=== PATIENT | female | born 1975 | race Caucasian/White ===

== ENCOUNTER 2016-12-28 18:41 | Emergency (ER) | payer OTHER ==
[2016-12-28 19:01] VITALS: BP 144/68; PULSE 87; RESP 16; TEMP 98.7
--- NOTE | 2016-12-28 19:52 | ED ---
Skin/Abscess/FB HPI - General Chief complaint: Skin/Abscess/Foreign Body Stated complaint: Boil left breast Time Seen by Provider: 12/28/16 19:08 Source: patient, RN notes reviewed Mode of arrival: ambulatory Limitations: no limitations - History of Present Illness Initial comments: Patient is a 41-year-old female with a chief complaint of abscess, left axilla. Patient reports that she's had this in the same spot before. She reports that got better with Bactrim in the past. Patient reports he took a Bactrim earlier in the week and it subsided. Patient reports that she ran out of old Bactrim and reoccurred. Patient states that she does not want the wound be packed. She denies any fever or chills. She denies any superficial erythema over the area. She states that she's had no known history of MRSA.Patient denies any recent fever, chills, shortness of breath, chest pain, back pain, abdominal pain, nausea vomiting, numbness or tingling, dysuria or hematuria, constipation or diarrhea, headaches or visual changes, or any other current symptoms - Related Data Home Medications Medication Instructions Recorded Confirmed Insulin Glargine [Lantus] 20 unit SQ DAILY 11/04/15 11/04/15 Previous Rx's Medication Instructions Recorded valACYclovir HCL [Valacyclovir] 1,000 mg PO TID #21 tab 11/04/15 Acetaminophen-Codeine 300-30mg 1 tab PO Q4H PRN #12 tablet 12/28/16 [Tylenol #3] Sulfamethox-Tmp 800-160Mg [Bactrim 2 tab PO Q12HR 7 Days 12/28/16 DS 800-160 mg] Allergies Allergy/AdvReac Type Severity Reaction Status Date / Time amoxicillin [Amoxicillin] Allergy Anaphylaxis Verified 12/28/16 19:01 blueberry Allergy Rash/Hives Verified 12/28/16 19:01 atorvastatin calcium AdvReac Unknown Verified 12/28/16 19:01 [From Lipitor] Review of Systems ROS Statement: Those systems with pertinent positive or pertinent negative responses have been documented in the HPI. ROS Other: All systems not noted in ROS Statement are negative. Past Medical History Past Medical History: Diabetes Mellitus, Hyperlipidemia Additional Past Medical History / Comment(s): Recurrent abscesses History of Any Multi-Drug Resistant Organisms: None Reported Past Surgical History: Appendectomy, Section, Cholecystectomy, Uterine Ablation Additional Past Surgical History / Comment(s): Incision and drainage Past Psychological History: No Psychological Hx Reported Smoking Status: Current every day smoker Past Alcohol Use History: None Reported Past Drug Use History: None Reported General Exam Limitations: no limitations General appearance: alert, in no apparent distress Head exam: Present: atraumatic, normocephalic, normal inspection Eye exam: Present: normal appearance, PERRL, EOMI. Absent: scleral icterus, conjunctival injection, periorbital swelling ENT exam: Present: normal exam, mucous membranes moist Neck exam: Present: normal inspection Respiratory exam: Present: normal lung sounds bilaterally. Absent: respiratory distress, wheezes, rales, rhonchi, stridor Cardiovascular Exam: Present: regular rate, normal rhythm, normal heart sounds. Absent: systolic murmur, diastolic murmur, rubs, gallop, clicks GI/Abdominal exam: Present: soft, normal bowel sounds. Absent: distended, tenderness, guarding, rebound, rigid Extremities exam: Present: normal inspection, full ROM, normal capillary refill. Absent: tenderness, pedal edema, joint swelling, calf tenderness Back exam: Present: normal inspection Neurological exam: Present: alert, oriented X3, CN II-XII intact Psychiatric exam: Present: normal affect, normal mood Skin exam: Present: warm, dry, intact, normal color, erythema (Left axilla abscess.). Absent: rash Course Vital Signs 12/28/16 18:59 Temperature 98.7 F Pulse Rate 87 Respiratory 16 Rate Blood Pressure 144/68 O2 Sat by Pulse 99 Oximetry Procedures - Incision & Drainage Consent Obtained: verbal consent Indication: Left breast abscess Site: chest (Left lateral breast) Size (cm): 4 Anesthetic Used: benzocaine 0.25% Amount (mLs): 4 I&D Cleaning Method: Betadine Sterile Field Used?: Yes Scalpel Used: #11 I&D Drainage Obtained: Pus, Blood Culture Obtained?: Yes Patient Tolerated Procedure: well, no complications Medical Decision Making - Medical Decision Making Patient is a 41-year-old female with chief complaint of left breast abscess for approximately one week. She's had abscesses in the past there before. She reports that she was taking old prescription of Bactrim and it was helping. She states she ran out of Bactrim and is coming from her. Patient refuses to have the wound pack. I discussed that this will breathe the vent the wound from closing and reoccurring. Patient again refuses. Patient states abscess was prepped with Betadine incised and drained. A significant of pus came out. A culture was obtained. Patient will be started on Bactrim and advised to follow up with primary care provider. I discussed return parameters. Patient states treatment plan will comply. Disposition Clinical Impression: Left breast abscess Disposition: HOME SELF-CARE Condition: Good Instructions: Abscess (ED), Abscess Incision and Drainage (ED) Additional Instructions: Patient advised to complete her antibiotic prescription. Follow-up with primary care provider in 2-3 days. Return to the emergency department if any alarming signs or symptoms occur including in worsening infection or spreading of the area of redness. Prescriptions: Acetaminophen-Codeine 300-30mg [Tylenol #3] 1 tab PO Q4H PRN #12 tablet PRN Reason: Pain Sulfamethox-Tmp 800-160Mg [Bactrim DS 800-160 mg] 2 tab PO Q12HR 7 Days Referrals: None,Stated [Primary Care Provider] - 1-2 days Virginia Robbins MD [STAFF PHYSICIAN] - 1-2 days Time of Disposition: 19:50
== END 2016-12-28 20:16 | disposition home or self-care (01) ==
LOC: EC 18:41
DX: N61.1 Abscess of the breast and nipple (principal); E11.9 Type 2 diabetes mellitus without complications; F17.200 Nicotine dependence, unspecified, uncomplicated; Z79.4 Long term (current) use of insulin; Z88.0 Allergy status to penicillin; Z88.8 Allergy status to other drugs, medicaments and biological substances; Z91.018 Allergy to other foods
CPT/HCPCS: 10060; 87070; 87205; 99283

== ENCOUNTER 2017-01-30 16:14 | Inpatient (IN) | payer OTHER ==
[2017-01-30] MEDS ORDERED: ACETAMINOPHEN TAB 500 MG TAB PO STA (16:51)
--- NOTE | 2017-01-30 16:59 | ED ---
General Adult HPI - General Source: patient, RN notes reviewed Mode of arrival: ambulatory Limitations: no limitations <Jair Chong - Last Filed: 01/30/17 17:47> - General Source: patient Mode of arrival: ambulatory Limitations: no limitations <Lyle Aleman - Last Filed: 01/30/17 17:52> - General Chief complaint: Skin/Abscess/Foreign Body Stated complaint: Under Arm Abscess Time Seen by Provider: 01/30/17 16:48 - History of Present Illness Initial comments: 41-year-old female presents emergency Department chief complaint of left axilla abscess. Patient states has been present 1 week. Patient states is increased in size very painful. Patient states she's had a fever. She states she generally does not feel well. She's had recurrent abscess in the past though she states that she has no history of MRSA. (Jair Chong) - Related Data Home Medications Medication Instructions Recorded Confirmed Ibuprofen [Motrin] 800 mg PO Q8HR PRN 01/30/17 01/30/17 Insulin Detemir [Levemir] 15 unit SQ W/SUPPER 01/30/17 01/30/17 Sulfamethox-Tmp 800-160Mg [Bactrim 1 tab PO TID 01/30/17 01/30/17 DS 800-160 mg] Allergies Allergy/AdvReac Type Severity Reaction Status Date / Time amoxicillin [Amoxicillin] Allergy Anaphylaxis Verified 01/30/17 16:35 blueberry Allergy Anaphylaxis Verified 01/30/17 16:35 atorvastatin calcium AdvReac Muscle Verified 01/30/17 16:35 [From Lipitor] Cramping Review of Systems ROS Other: All systems not noted in ROS Statement are negative. <Jair Chong - Last Filed: 01/30/17 17:47> ROS Other: All systems not noted in ROS Statement are negative. <Lyle Aleman - Last Filed: 01/30/17 17:52> ROS Statement: Those systems with pertinent positive or pertinent negative responses have been documented in the HPI. Past Medical History Past Medical History: Diabetes Mellitus, Hyperlipidemia Additional Past Medical History / Comment(s): Recurrent abscesses History of Any Multi-Drug Resistant Organisms: None Reported Past Surgical History: Appendectomy, Section, Cholecystectomy, Uterine Ablation Additional Past Surgical History / Comment(s): Incision and drainage Past Psychological History: No Psychological Hx Reported Smoking Status: Current every day smoker Past Alcohol Use History: None Reported Past Drug Use History: None Reported <Lyle Aleman - Last Filed: 01/30/17 17:52> General Exam General appearance: alert, in no apparent distress Respiratory exam: Present: normal lung sounds bilaterally. Absent: respiratory distress, wheezes, rales, rhonchi, stridor Cardiovascular Exam: Present: regular rate, normal rhythm, normal heart sounds. Absent: systolic murmur, diastolic murmur, rubs, gallop, clicks Skin exam: Present: other (Left axilla there are multiple large tender there is a swelling to problem abscesses noted, surrounding erythema and warmth) <Jair Chong - Last Filed: 01/30/17 17:47> Limitations: no limitations <Lyle Aleman - Last Filed: 01/30/17 17:52> Medical Decision Making - Lab Data Result diagrams: 01/30/17 17:00 01/30/17 17:00 <Jair Chong - Last Filed: 01/30/17 17:47> - Lab Data Result diagrams: 01/30/17 17:00 01/30/17 17:00 <Lyle Aleman - Last Filed: 01/30/17 17:52> - Medical Decision Making 41-year-old female presented emergency from for left axilla abscess. Patient be admitted at this time under Dr. Garnett service consult to Dr. Bermudez. Patient has seen Dr. Bermudez in the past. Patient be started on Levaquin and ankle as she meets sepsis criteria. Patient has any affect reaction to amoxicillin and penicillin/cephalsporin medications will be avoided. (Jair Chong) Medical decision making; I examined the patient reviewed her history. She has a large abscess with cellulitis in the left axilla. She's had this on the right side as well. I discussed the case with Dr. Bermudez, her general surgeon who did the I&D on the last abscess in the right axilla, she wants the patient admitted to general medicine for control of medical problems. I discussed the case with Dr. rodríguez, on-call for Dr. michel, he accepts patient. Patient be started on double antibiotics. Dr. Aleman (Lyle Aleman) - Lab Data Lab Results 01/30/17 01/30/17 Range/Units 17:00 17:00 WBC 15.2 H (3.8-10.6) k/uL RBC 4.94 (3.80-5.40) m/uL Hgb 15.3 (11.4-16.0) gm/dL Hct 45.4 (34.0-46.0) % MCV 91.8 (80.0-100.0) fL MCH 30.9 (25.0-35.0) pg MCHC 33.6 (31.0-37.0) g/dL RDW 13.9 (11.5-15.5) % Plt Count 268 (150-450) k/uL Neutrophils % 75 % Lymphocytes % 19 % Monocytes % 3 % Eosinophils % 2 % Basophils % 1 % Neutrophils # 11.3 H (1.3-7.7) k/uL Lymphocytes # 2.9 (1.0-4.8) k/uL Monocytes # 0.4 (0-1.0) k/uL Eosinophils # 0.3 (0-0.7) k/uL Basophils # 0.1 (0-0.2) k/uL Sodium 137 (137-145) mmol/L Potassium 4.2 (3.5-5.1) mmol/L Chloride 102 (98-107) mmol/L Carbon Dioxide 25 (22-30) mmol/L Anion Gap 10 mmol/L BUN 9 (7-17) mg/dL Creatinine 0.54 (0.52-1.04) mg/dL Est GFR (MDRD) Af Amer >60 (>60 ml/min/1.73 sqM) Est GFR (MDRD) Non-Af >60 (>60 ml/min/1.73 sqM) Glucose 250 H (74-99) mg/dL Calcium 9.4 (8.4-10.2) mg/dL Disposition Time of Disposition: 17:50 <Jair Chong - Last Filed: 01/30/17 17:47> <Lyle Aleman - Last Filed: 01/30/17 17:52> Clinical Impression: Abscess of left axilla, Cellulitis Referrals: Eugene Michel MD [REFERRING] - 1-2 days
[2017-01-30] MEDS ORDERED: IV VANCOMYCIN PER PHARMACY 1 EACH MISC MISCELLANE PRN (17:05)
[2017-01-30 17:21] LABS: Basophils # (A) 0.1 k/uL (0-0.2); Basophils % (A) 1 %; CH 31.5; CHCM 34.5; Eosinophils # (A) 0.3 k/uL (0-0.7); Eosinophils % (A) 2 %; HCT 45.4 % (34.0-46.0); HDW 2.63; HGB 15.3 gm/dL (11.4-16.0); Luc # (Auto) 0.14; Luc % (Auto) 1; Lymphocytes # (A) 2.9 k/uL (1.0-4.8); Lymphocytes % (A) 19 %; MCH 30.9 pg (25.0-35.0); MCHC 33.6 g/dL (31.0-37.0); MCV 91.8 fL (80.0-100.0); Mean Platelet Volume 7.5; Monocytes # (A) 0.4 k/uL (0-1.0); Monocytes % (A) 3 %; Neutrophils # (A) 11.3 k/uL (1.3-7.7); Neutrophils % (A) 75 %; RBC 4.94 m/uL (3.80-5.40); RDW 13.9 % (11.5-15.5); WBC 15.2 k/uL (3.8-10.6); WBC (Perox) 15.73
[2017-01-30 17:31] LABS: Anion Gap 10 mmol/L; Blood Urea Nitrogen 9 mg/dL (7-17); Calcium 9.4 mg/dL (8.4-10.2); Carbon Dioxide 25 mmol/L (22-30); Chloride 102 mmol/L (98-107); Glucose 250 mg/dL (74-99); Non-African American GFR(MDRD) >60 (>60 ml/min/1.73 sqM); Potassium 4.2 mmol/L (3.5-5.1); Sodium 137 mmol/L (137-145)
[2017-01-30] MEDS ORDERED: LEVOFLOXACIN 750MG-D5W PMX 750 MG in DEXTROSE/WATER 1 150ML.BAG IVPB STA (17:47)
[2017-01-30] MEDS ORDERED: NALOXONE 0.4 MG/ML 1 ML VIAL IV PRN (17:50)
[2017-01-30] MEDS ORDERED: ACETAMINOPHEN TAB 325 MG TAB PO PRN (17:50)
[2017-01-30] MEDS ORDERED: ONDANSETRON 4 MG/2 ML VIAL IVP PRN (17:50)
[2017-01-30] MEDS ORDERED: VANCOMYCIN 1,500 MG in SODIUM CHLORIDE 0.9% 250 ML IVPB ONE (18:00)
--- NOTE | 2017-01-30 19:40 | P.GSCN ---
History of Present Illness Consult date: 01/30/17 History of present illness: . She has a history of a complicated right axillary abscess approximately 2 years ago. She had a small abscess on her breast which was drained in the emergency department and she was started on Bactrim. It sounds like that improved and when she began developing the pain in the axilla she started her Bactrim again. No fevers or chills. No history of MRSA. Review of Systems All systems: negative Past Medical History Past Medical History: Diabetes Mellitus, Hyperlipidemia Additional Past Medical History / Comment(s): Recurrent abscesses History of Any Multi-Drug Resistant Organisms: None Reported Past Surgical History: Appendectomy, Section, Cholecystectomy, Uterine Ablation Additional Past Surgical History / Comment(s): Incision and drainage Past Psychological History: No Psychological Hx Reported Smoking Status: Current every day smoker Past Alcohol Use History: None Reported Past Drug Use History: None Reported Medications and Allergies Home Medications Medication Instructions Recorded Confirmed Type Ibuprofen [Motrin] 800 mg PO Q8HR PRN 01/30/17 01/30/17 History Insulin Detemir [Levemir] 15 unit SQ W/SUPPER 01/30/17 01/30/17 History Sulfamethox-Tmp 800-160Mg [Bactrim 1 tab PO TID 01/30/17 01/30/17 History DS 800-160 mg] Allergies Allergy/AdvReac Type Severity Reaction Status Date / Time amoxicillin [Amoxicillin] Allergy Anaphylaxis Verified 01/30/17 16:35 blueberry Allergy Anaphylaxis Verified 01/30/17 16:35 atorvastatin calcium AdvReac Muscle Verified 01/30/17 16:35 [From Lipitor] Cramping Surgical - Exam Osteopathic Statement: *. No significant issues noted on an osteopathic structural exam other than those noted in the History and Physical/Consult. Vital Signs Temp Pulse Resp BP Pulse Ox 100.8 F H 105 H 20 163/81 97 01/30/17 16:26 01/30/17 16:26 01/30/17 16:26 01/30/17 16:26 01/30/17 16:26 - General Appears uncomfortable when moving in bed well developed, well nourished - Respiratory normal respiratory effort - Cardiovascular Rhythm: regular - Integumentary Complex abscess in the left axilla with erythema, purulent drainage, multiple areas of swelling. Results - Labs 01/30/17 17:00 04/18/17 17:00 Assessment and Plan (1) Abscess of left axilla Status: Acute (2) Diabetes Status: Acute Plan: This is a fairly complex abscess which will require incision and drainage along with parenteral antibiotics. Procedure risks and complications were discussed and onto this for her today. I'll have one a the other doctors cover her beginning tomorrow as I will be added town.
[2017-01-30 20:08] VITALS: BMI 33.2
[2017-01-30] MEDS ORDERED: fentaNYL (PF) 50 MCG/ML 2 ML AMP ONE (20:16)
[2017-01-30] MEDS ORDERED: PROPOFOL 10 MG/ML 20 ML VIAL IV ONE (20:16)
[2017-01-30] MEDS ORDERED: SUCCINYLCHOLINE CHLORIDE 100 MG/5 ML SYR IV ONE (20:16)
[2017-01-30] MEDS ORDERED: IV FLUID CONTINUATION 1,000 ML IV ONE (20:18)
[2017-01-30 20:27] LABS: Hemoglobin A1C 8.5 % (4.2-6.1)
--- NOTE | 2017-01-30 20:40 | P.OP ---
Date of Procedure: 01/30/17 Preoperative Diagnosis: Abscess left axilla Postoperative Diagnosis: Abscess left axilla Procedure(s) Performed: Incision and drainage abscess left axilla Anesthesia: JOY Surgeon: Cary Bermudez Estimated Blood Loss (ml): 10 Pathology: other (Culture) Condition: stable Disposition: PACU Indications for Procedure: Patient presented with a abscess of left axilla which was not responding to oral Bactrim Operative Findings: Patient's taken the operative suite where she is prepped and draped in the usual sterile manner under general anesthetic. An incision was made about 4 cm long with drainage of purulent, foul smelling fluid. It was cultured. Some loculations were broken up. The wound was irrigated and packed with 1 inch iodoform gauze. The skin incision was 4 cm. An undermined superiorly and inferiorly to that about 4 cm she tolerated the procedure without difficulty was taken recovery room in satisfactory condition. According to or personnel all counts are correct.
[2017-01-30] MEDS ORDERED: HYDROcodone/APAP 5-325MG 1 EACH TAB PO PRN (20:42)
[2017-01-30 21:03] LABS: Glucose,Whole Blood 163 mg/dL (75-99)
[2017-01-30] MEDS: INSULIN DETEMIR 100 UNIT/ML 10 ML VIAL SQ SCH (21:27)
[2017-01-30] MEDS: INSULIN LISPRO (humaLOG) 300 UNIT/3 ML VIAL SQ SCH (21:55)
[2017-01-31] MEDS: SODIUM CHLORIDE 0.9% 1,000 ML IV SCH ×3 (00:10→20:40)
[2017-01-31] MEDS: metroNIDAZOLE-NS PMX 500 MG in SALINE 1 100ML.BAG IVPB SCH ×2 (00:11→08:17)
[2017-01-31] MEDS: MORPHINE SULFATE 4 MG/ML SYRINGE IV PRN ×3 (00:22→16:34)
[2017-01-31] MEDS: VANCOMYCIN 1,250 MG in SODIUM CHLORIDE 0.9% 250 ML IVPB SCH ×3 (01:32→15:52)
--- NOTE | 2017-01-31 07:52 | P.HPIM ---
History of Present Illness H&P Date: 01/30/17 Chief Complaint: Left axilla abscess with large cellulitis with failure to outpatient treatm 41-year-old female overweight [address] 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 Patient apparently has been dealing with abscess of the left axilla for the last 2 weeks was on oral antibiotics Bactrim as an outpatient with failure to treatment. Patient just lost her father recently was dealing with his arrangement could not seek any medical help but her symptoms become much worse over the last 48 hours ended up coming to the emergency department at [facility] found to have large abscess size 107 cm in the left axilla with worsening lymph node enlargement with failure to outpatient treatment with her current condition decided to admit patient to the hospital. I'm patient be seen in general surgery and possible need I@D within the next 24 hours. In the meanwhile patient is on vancomycin IV will continue current treatment for now. Review of Systems Constitutional: Reports fatigue, Reports fever, Reports lethargy, Reports malaise, Reports poor appetite, Reports weakness, Reports weight gain, Denies as per HPI, Denies anorexia, Denies chills, Denies chronic headaches, Denies chronic pain, Denies daytime sleepiness, Denies night sweats, Denies sweats, Denies weight loss Eyes: denies as per HPI Ears: deny: decreased hearing Ears, nose, mouth and throat: Reports ant. neck pain, Reports nasal discharge, Reports sinus pain, Reports sinus pressure, Denies as per HPI, Denies bleeding gums, Denies dental pain, Denies dysphagia, Denies epistaxis, Denies headache, Denies hoarseness, Denies mouth pain, Denies nasal congestion, Denies neck fullness/pressure, Denies neck lump, Denies nose pain, Denies odynophagia, Denies post-nasal drip, Denies swelling in mouth, Denies swelling in throat, Denies sore throat, Denies vertigo, Denies voice changes Cardiovascular: Reports dyspnea on exertion, Reports edema, Reports high blood pressure, Reports leg edema, Denies as per HPI, Denies chest pain, Denies claudication, Denies decreased exercise tolerance, Denies irregular heart beat, Denies lightheadedness, Denies orthopnea, Denies palpitations, Denies paroxysmal nocturnal dyspnea, Denies phlebitis, Denies rapid heart beat, Denies shortness of breath, Denies syncope Respiratory: Reports congestion, Denies as per HPI, Denies cough, Denies cough with sputum, Denies dyspnea, Denies excessive sputum, Denies hemoptysis, Denies home oxygen, Denies pain, Denies pain on inspiration, Denies pleurisy, Denies respiratory infections, Denies sleep apnea, Denies snoring, Denies wheezing Gastrointestinal: Reports bloating, Reports dyspepsia, Reports early satiety, Reports nausea, Denies as per HPI, Denies abdominal pain, Denies belching, Denies BRBPR, Denies change in bowel habits, Denies coffee ground emesis, Denies constipation, Denies diarrhea, Denies excessive gas, Denies heartburn, Denies hematemesis, Denies hematochezia, Denies indigestion, Denies jaundice, Denies lactose intolerance, Denies loss of appetite, Denies melena, Denies vomiting Genitourinary: Reports urinary frequency, Denies as per HPI, Denies abnormal vaginal bleeding, Denies decreased libido, Denies difficulty conceiving, Denies difficulty voiding, Denies dysmenorrhea, Denies dyspareunia, Denies dysuria, Denies flank pain, Denies genital sores, Denies hematuria, Denies hot flashes, Denies incomplete emptying, Denies kidney stones, Denies menorrhagia, Denies mixed incontinence, Denies nocturia, Denies pelvic pain, Denies post void dribbling, Denies , Denies prolapse symptoms, Denies stress incontinence , Denies urge incontinence, Denies urgency, Denies vaginal discharge, Denies vaginal dryness, Denies vaginal itching, Denies vaginal odor Menstruation: Denies as per HPI, Denies amenorrhea, Denies amenorrhea on BC, Denies currently menstrual, Denies cycle < 21 days, Denies cycle > 35 days, Denies cycle variable, Denies menses 1-7 days, Denies menses 8 or > days, Denies menses variable, Denies period heavy, Denies period light, Denies period normal, Denies period spotting, Denies post hysterectomy, Denies postmenopausal , Denies premenarcheal Musculoskeletal: Reports low back pain, Reports myalgias, Reports neck pain, Denies as per HPI, Denies arm numbness/tingling, Denies atrophy, Denies fractures, Denies frequent falls, Denies gait dysfunction, Denies hot joints, Denies leg numbness/tingling, Denies limitation of motion, Denies loss of height , Denies morning stiffness, Denies muscle cramps, Denies muscle weakness, Denies neck stiffness, Denies prior amputations, Denies redness of joints, Denies shooting arm pain, Denies shooting leg pain Integumentary: Reports pruritus, Reports rash, Denies as per HPI, Denies acne, Denies boils, Denies brittle nails, Denies change in hair/nails, Denies color changes, Denies darkening of skin, Denies depigmentation, Denies dryness, Denies foot/leg ulcers, Denies growths, Denies hirsutism, Denies lesions, Denies onychomycosis, Denies sores, Denies striae, Denies unusual bruising, Denies wounds Neurological: Denies as per HPI, Denies aphasia, Denies ataxia, Denies balance difficulties, Denies burning pain, Denies change in mentation, Denies change in smell/taste, Denies change in speech, Denies confusion, Denies convulsions, Denies double vision, Denies gait dysfunction, Denies head injury, Denies headaches, Denies hearing difficulties, Denies lack of coordination, Denies loss of vision, Denies memory loss, Denies migraines, Denies motor disturbance, Denies numbness, Denies paralysis, Denies paresthesias, Denies seizures, Denies sensory deficit, Denies spasticity, Denies syncope, Denies tic, Denies tingling , Denies transient paralysis, Denies tremors, Denies vertigo, Denies weakness, Denies visual changes Psychiatric: Reports anhedonia, Reports depression, Reports mood swings, Denies as per HPI, Denies anxiety, Denies anxiety attacks, Denies change in appetite, Denies change in libido, Denies change in sleep habits, Denies confusion, Denies difficulty concentrating, Denies disorientation, Denies hallucinations, Denies hopelessness, Denies hypersomnia, Denies insomnia, Denies irritability, Denies memory loss, Denies paranoia, Denies sadness/tearfulness, Denies sleep disturbances, Denies suicidal ideation Endocrine: Reports cold intolerance, Reports excessive sweating, Denies as per HPI, Denies deepening of the voice, Denies excessive thirst, Denies fatigue, Denies flushing, Denies heat intolerance, Denies high blood sugars, Denies increase in ring/shoe/hat size, Denies low blood sugars, Denies nocturia, Denies palpitations, Denies polydipsia, Denies polyphagia, Denies polyuria, Denies proptosis, Denies recent glucocorticoid use, Denies thyroid mass, Denies weight change Hematologic/Lymphatic: Denies as per HPI, Denies easy bleeding, Denies easy bruising, Denies lymphadenopathy, Denies lymphedema, Denies thrombophilia Allergic/Immunologic: Denies as per HPI, Denies allergic rhinitis, Denies anaphylaxis, Denies angioedema, Denies gluten intolerance, Denies persistent infections, Denies seasonal allergies, Denies urticaria, Denies wheezing Past Medical History Past Medical History: Diabetes Mellitus, Hyperlipidemia Additional Past Medical History / Comment(s): Recurrent abscesses History of Any Multi-Drug Resistant Organisms: None Reported Past Surgical History: Appendectomy, Section, Cholecystectomy, Uterine Ablation Additional Past Surgical History / Comment(s): Incision and drainage Past Psychological History: No Psychological Hx Reported Smoking Status: Current every day smoker Past Alcohol Use History: None Reported Past Drug Use History: None Reported - Past Family History Mother Family Medical History: No Reported History Medications and Allergies Home Medications Medication Instructions Recorded Confirmed Type Ibuprofen [Motrin] 800 mg PO Q8HR PRN 01/30/17 01/30/17 History Insulin Detemir [Levemir] 15 unit SQ W/SUPPER 01/30/17 01/30/17 History Allergies Allergy/AdvReac Type Severity Reaction Status Date / Time amoxicillin [Amoxicillin] Allergy Anaphylaxis Verified 01/30/17 20:13 blueberry Allergy Anaphylaxis Verified 01/30/17 20:13 atorvastatin calcium AdvReac Muscle Verified 01/30/17 20:13 [From Lipitor] Cramping Physical Exam Vitals: Vital Signs Temp Pulse Resp BP Pulse Ox 01/30/17 18:31 100.4 F H 86 16 153/85 97 - Constitutional General appearance: no average body habitus, cooperative, no disheveled, no mild distress, no morbidly obese, no acute distress, no obese, no severe distress, no thin - EENT Eyes: no abnormal pupil, no anicteric sclerae, no disc margins sharp, no edentulous, no EOMI, no PERRLA, no fundus normal, no photophobia, no dentition normal, no poor dentition, no ptosis, no scleral icterus, normal appearance ENT: no hard of hearing, no hearing grossly normal, no NA/AT, normal oropharynx , no other, no pharyngeal erythema, no thrush, no tonsillar exudates, no tonsillar swelling Ears: bilateral: normal - Neck Neck: normal ROM Carotids: negative: upstroke normal Thyroid: negative: normal size - Respiratory Respiratory: bilateral: diminished, dullness - Cardiovascular Rhythm: regular Heart sounds: normal: S1, S2 Abnormal Heart Sounds: S3 Gallop - Gastrointestinal General gastrointestinal: no absent bowel sounds, no decreased bowel sounds, no distended, no hepatomegaly, no hyperactive bowel sounds, normal bowel sounds, no organomegaly, no rigid, no scaphoid, soft, no splenomegaly, no tenderness, no umbilical hernia, no ventral hernia - Integumentary L Axilla large Abscess measure 10X7 cm with Reactive Lymph nodes. Integumentary: no calor, cellulitis, no cyanotic, no decreased turgor, no flushed, no jaundiced, no normal, no normal turgor, pale, rash, no ulcer - Neurologic Neurologic: CNII-XII intact - Musculoskeletal Musculoskeletal: gait normal, generalized weakness - Psychiatric Psychiatric: A&O x's 3, appropriate affect Results CBC & Chem 7: 01/30/17 17:00 01/30/17 17:00 Thrombosis Risk Factor Assmnt - DVT/VTE Prophylaxis DVT/VTE Prophylaxis: Pharmacologic Prophylaxis ordered, Mechanical Prophylaxis ordered Assessment and Plan Plan: 1 large left axilla abscess: Continue IV antibiotic post I and D we will consult Dr. Bermudez for possible surgical intervention in the next 24 hours in the meanwhile continue vancomycin IV. 2 type 2 diabetes: Not control so far, patient has been on Levemir only Will add Accu-Chek with sliding scales coverage with short acting and patient can benefit from either Januvia or metformin. 3 elevated blood pressure: Continue conservative management on low-salt diet. 4 leukocytosis: Secondary to her current infection with no sign of abscess so far continue IV antibiotics. 5 hyperlipidemia: Was on fenofibrate before patient is not taking it lately she had significant ALLERGY to atorvastatin and statin in general she might benefit from fenofibrate or Lopid. 6 smoking: Smoking cessation was addressed patient will be on nicotine patch 14 mg daily. 7 GERD: Patient will be on Pepcid 20 mg daily. 8 DVT prophylaxis: Patient will be on heparin 5000 units subcutaneous twice a day. CODE STATUS: Full code. Expectation from this admission: Patient be in the hospital for more than 2 nights.
[2017-01-31 08:06] LABS: Glucose,Whole Blood 249 mg/dL (75-99)
[2017-01-31] MEDS: INSULIN LISPRO (humaLOG) 300 UNIT/3 ML VIAL SQ SCH ×6 (08:19→22:57)
[2017-01-31] MEDS: FAMOTIDINE 20 MG TAB PO SCH (10:50)
[2017-01-31] MEDS: NICOTINE 14MG/24HR PATCH TRANSDERM SCH (11:11)
--- NOTE | 2017-01-31 12:33 | P.PN ---
Subjective Principal diagnosis: Left axillary abscess Patient says her pain is improved.. Some drainage overnight. She is afebrile. Objective - Vital Signs Vital signs: Vital Signs Temp 97.5 F L 01/31/17 08:40 Pulse 77 01/31/17 08:40 Resp 16 01/31/17 08:40 BP 103/63 01/31/17 08:40 Pulse Ox 94 L 01/31/17 08:40 Intake & Output 01/30/17 01/31/17 01/31/17 18:59 06:59 18:59 Intake Total 400 Output Total 305 Balance 95 Weight 77.111 kg Intake: IV 400 Output: Urine 300 Estimated Blood Loss 5 Other: # Voids 1 - Exam Left axilla with persistent induration, mild erythema, moderate tenderness - Labs CBC & Chem 7: 01/30/17 17:00 01/30/17 17:00 Labs: Abnormal Lab Results - Last 24 Hours (Table) 01/30/17 01/31/17 Range/Units 21:00 07:57 POC Glucose (mg/dL) 163 H 249 H (75-99) mg/dL Microbiology - Last 24 Hours (Table) 01/30/17 20:31 Gram Stain - Preliminary Axilla - Left Wound Culture - Preliminary 01/30/17 20:31 Anaerobic Culture - Preliminary Axilla - Left Assessment and Plan (1) Abscess of left axilla Narrative/Plan: Patient to shower today and will change dressings following that. Continue IV antibiotics. Status: Acute
[2017-01-31 12:46] LABS: Glucose,Whole Blood 240 mg/dL (75-99)
--- NOTE | 2017-01-31 13:21 | P.PN ---
Subjective 41-year-old female overweight [address] 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 Patient apparently has been dealing with abscess of the left axilla for the last 2 weeks was on oral antibiotics Bactrim as an outpatient with failure to treatment. Patient just lost her father recently was dealing with his arrangement could not seek any medical help but her symptoms become much worse over the last 48 hours ended up coming to the emergency department at [facility] found to have large abscess size 107 cm in the left axilla with worsening lymph node enlargement with failure to outpatient treatment with her current condition decided to admit patient to the hospital. I'm patient be seen in general surgery and possible need I@D within the next 24 hours. In the meanwhile patient is on vancomycin IV will continue current treatment for now. 01/31: Patient underwent I&D with Dr. Bermudez with drainage of purulent foul- smelling fluid from the left axilla abscess. She is currently on IV antibiotics in the form of Levaquin and Flagyl and vancomycin. Wound culture is in process and is showing preliminary of gram-positive and gram-negative organisms. Hemoglobin A1c is 8.5. Consult with Dr. Lloyd added. Patient is started on Levemir along with Humalog scheduled with meals and on scale before meals and at bedtime. Patient understands that Levemir is not enough to control her blood sugars. Objective - Vital Signs Vital signs: Vital Signs Temp 97.9 F 01/31/17 04:00 Pulse 78 01/31/17 04:00 Resp 16 01/31/17 04:00 BP 111/67 01/31/17 00:00 Pulse Ox 97 01/31/17 04:00 Intake & Output 01/30/17 01/31/17 01/31/17 18:59 06:59 18:59 Intake Total 400 Output Total 305 Balance 95 Weight 77.111 kg Intake: IV 400 Output: Urine 300 Estimated Blood Loss 5 Other: # Voids 0 - Exam General appearance: no average body habitus, cooperative, no disheveled, no mild distress, no morbidly obese, no acute distress, no obese, no severe distress, no thin - EENT Eyes: no abnormal pupil, no anicteric sclerae, no disc margins sharp, no edentulous, no EOMI, no PERRLA, no fundus normal, no photophobia, no dentition normal, no poor dentition, no ptosis, no scleral icterus, normal appearance ENT: no hard of hearing, no hearing grossly normal, no NA/AT, normal oropharynx , no other, no pharyngeal erythema, no thrush, no tonsillar exudates, no tonsillar swelling Ears: bilateral: normal - Neck Neck: normal ROM Carotids: negative: upstroke normal Thyroid: negative: normal size - Respiratory Respiratory: bilateral: diminished, dullness - Cardiovascular Rhythm: regular Heart sounds: normal: S1, S2 Abnormal Heart Sounds: S3 Gallop - Gastrointestinal General gastrointestinal: no absent bowel sounds, no decreased bowel sounds, no distended, no hepatomegaly, no hyperactive bowel sounds, normal bowel sounds, no organomegaly, no rigid, no scaphoid, soft, no splenomegaly, no tenderness, no umbilical hernia, no ventral hernia - Integumentary L Axilla large Abscess measure 10X7 cm with Reactive Lymph nodes. Integumentary: no calor, cellulitis, no cyanotic, no decreased turgor, no flushed, no jaundiced, no normal, no normal turgor, pale, rash, no ulcer - Neurologic Neurologic: CNII-XII intact - Musculoskeletal Musculoskeletal: gait normal, generalized weakness - Psychiatric Psychiatric: A&O x's 3, appropriate affect - Labs CBC & Chem 7: 01/30/17 17:00 01/30/17 17:00 Labs: Abnormal Lab Results - Last 24 Hours (Table) 01/30/17 01/31/17 Range/Units 21:00 07:57 POC Glucose (mg/dL) 163 H 249 H (75-99) mg/dL Microbiology - Last 24 Hours (Table) 01/30/17 20:31 Gram Stain - Preliminary Axilla - Left Wound Culture - Preliminary 01/30/17 20:31 Anaerobic Culture - Preliminary Axilla - Left Assessment and Plan Plan: 1 large left axilla abscess: Continue vancomycin, Levaquin, Flagyl. Patient is status post I&D with Dr. Bermudez. Consult added for Dr. Lloyd. Wound cultures are pending. 2 type 2 diabetes, uncontrolled with hemoglobin A1c of 8.5. Continue Levemir, Humalog scheduled and scale. 3 elevated blood pressure: Continue conservative management on low-salt diet. 4 leukocytosis: Secondary to her current infection with no sign of abscess so far continue IV antibiotics. 5 hyperlipidemia: Was on fenofibrate before patient is not taking it lately she had significant ALLERGY to atorvastatin and statin in general she might benefit from fenofibrate or Lopid. 6 smoking: Smoking cessation was addressed patient will be on nicotine patch 14 mg daily. 7 GERD: Patient will be on Pepcid 20 mg daily. 8 DVT prophylaxis: Patient will be on heparin 5000 units subcutaneous twice a day. CODE STATUS: Full code. Discharge plan: Return home Impression and plan of care have been directed as dictated by the signing physician. Nkechi Clifton nurse practitioner acting as scribe for signing physician. Time with Patient: Greater than 30
[2017-01-31] MEDS: HEPARIN SODIUM,PORCINE 5,000 UNIT/ML 1 ML VIAL SQ SCH (15:55)
[2017-01-31 17:41] LABS: Glucose,Whole Blood 107 mg/dL (75-99)
[2017-01-31] MEDS ORDERED: LEVOFLOXACIN 500MG-D5W PMX 500 MG in DEXTROSE/WATER 1 100ML.BAG IVPB SCH (18:00)
[2017-01-31] MEDS: INSULIN DETEMIR 100 UNIT/ML 10 ML VIAL SQ SCH (18:48)
[2017-01-31] MEDS ORDERED: cefTRIAXone 2,000 MG in SODIUM CHLORIDE 0.9% 100 ML IVPB SCH (20:00)
[2017-01-31 22:12] LABS: Glucose,Whole Blood 152 mg/dL (75-99)
[2017-02-01] MEDS: HEPARIN SODIUM,PORCINE 5,000 UNIT/ML 1 ML VIAL SQ SCH ×3 (00:22→16:09)
[2017-02-01] MEDS: VANCOMYCIN 1,250 MG in SODIUM CHLORIDE 0.9% 250 ML IVPB SCH ×3 (00:22→16:09)
--- NOTE | 2017-02-01 06:51 | CONS ---
DATE OF CONSULTATION: DATE OF SERVICE: 01/31/2017 REASON FOR CONSULTATION: Left axillary abscess. HISTORY OF PRESENT ILLNESS: The patient is a 41-year-old female with a past medical history of axillary abscess since 2014. The patient did not recall if she had any history of MRSA infection, but patient recently did shave her axillae and subsequently started having swelling and redness mostly in the left axillary area. The area became more swollen and red. She has been treated with oral Bactrim without any significant improvement. Subsequently, the patient was brought into the ER, has been diagnosed with left axillary abscess. The patient was taken to the OR by Dr. Bermudez with I&D of the abscess. Wound has been packed. Cultures are now showing gram-positive cocci and initial some gram-negative bacilli. Patient will be treated with IV vancomycin with Levaquin and Flagyl added. I was asked to see the patient for further recommendation. Patient did complain of some fever and chills and last night did have a fever of 100.8 in a patient who did have an elevated white count of 15.2 on admission. REVIEW OF SYSTEMS: CONSTITUTIONAL: Positive for weakness and chills. EYES: No complaint. ENT: No complaint. RESPIRATORY: No complaint. CARDIOVASCULAR: No complaint. GENITOURINARY: No complaint. GASTROINTESTINAL: No complaint. MUSCULOSKELETAL: No complaint. INTEGUMENTARY: As per HPI. PSYCHOLOGIC: No complaint. ENDOCRINE: No complaint. NEUROLOGICAL: No complaint. PAST MEDICAL HISTORY: Significant for a recurrent skin infection, hyperlipidemia and diabetes mellitus. PAST SURGICAL HISTORY: Appendectomy, , cholecystectomy and uterine ablation in addition to the I&D of the skin abscess. SOCIAL HISTORY: The patient is a current every day smoker. Patient denies any drinking or drug use. FAMILY HISTORY: No pertinent findings were noticed. Allergies to AMOXICILLIN with rash, no history of anaphylaxis and LIPITOR. Medications currently include the patient is on Tylenol, [place], Levaquin, Flagyl vancomycin pharmacy to dose. She is on Pepcid, Levemir, Humalog, morphine sulfate, nicotine patch. On examination, blood pressure is 104/65 with a pulse of a 75, temperature 98.2, T-max is 100.8. General description is a middle-age female lying in bed in no distress. No tachypnea or accessory muscle of respiration use. HEENT examination shows no pallor or scleral icterus. Oral mucous membranes dry. NECK: Trachea central. There is no thyromegaly. LUNGS: Unlabored breathing. Clear to auscultation anteriorly. HEART: S1, S2. Regular rate and rhythm. ABDOMEN: Soft, no tenderness. EXTREMITIES: No edema of the feet. EXAMINATION OF THE LEFT AXILLA: The wound is currently packed, did have some surrounding induration though no significant redness was noticed or any foul smelling drainage. NEUROLOGICAL: The patient is awake, alert, oriented x3. Mood and affect normal. LABS: Hemoglobin is 15.3, white count 15.2 with a BUN of 9, creatinine 0.54. Hemoglobin A1c was 8.5. Blood culture obtained, currently pending. Wound cultures showing gram-positive cocci as well as gram-negative bacilli. DIAGNOSTIC IMPRESSION: 1. Patient with left axillary abscess in a patient who did have history of recurrent skin infection with concern for possible streptococcal infection, failing outpatient Bactrim DS therapy. The wound cultures are showing gram-negative hence will need to cover for the polymicrobial allyson in a patient with diabetes. 2. Patient noted to have a PENICILLIN allergy that limits a number of antibiotics that could be safely used, but no history of anaphylaxis. PLAN: 1. Vancomycin, pharmacy to dose with a target trough of 15 and will add Rocephin 2 grams daily to cover for the gram negative. 2. Discontinue Levaquin and Flagyl. 3. Will follow on the clinical condition as well as cultures for further adjustment of medication if needed. Thank you for this consultation. Will follow this patient along with you. LINDA
[2017-02-01] MEDS ORDERED: VANCOMYCIN TROUGH DUE 1 EACH MISC MISCELLANE ONE (07:00)
[2017-02-01 07:17] LABS: Anion Gap 6 mmol/L; Blood Urea Nitrogen 11 mg/dL (7-17); Calcium 8.3 mg/dL (8.4-10.2); Carbon Dioxide 25 mmol/L (22-30); Chloride 107 mmol/L (98-107); Glucose 135 mg/dL (74-99); Non-African American GFR(MDRD) >60 (>60 ml/min/1.73 sqM); Sodium 138 mmol/L (137-145)
[2017-02-01 07:29] LABS: Glucose,Whole Blood 131 mg/dL (75-99)
[2017-02-01] MEDS ORDERED: NICOTINE 14MG/24HR PATCH TRANSDERM SCH (09:00)
[2017-02-01] MEDS: INSULIN LISPRO (humaLOG) 300 UNIT/3 ML VIAL SQ SCH ×4 (09:51→14:10)
[2017-02-01] MEDS: NICOTINE 14MG/24HR PATCH TRANSDERM SCH (09:53)
[2017-02-01] MEDS: FAMOTIDINE 20 MG TAB PO SCH (09:57)
[2017-02-01 11:33] LABS: Glucose,Whole Blood 163 mg/dL (75-99)
[2017-02-01 13:35] VITALS: RESP 20
--- NOTE | 2017-02-01 13:43 | P.PN ---
Subjective Principal diagnosis: Left axillary abscess Patient without significant pain today. She is hoping to go home. Objective - Vital Signs Vital signs: Vital Signs Temp 98.9 F 02/01/17 13:15 Pulse 67 02/01/17 13:15 Resp 20 02/01/17 13:15 BP 123/71 02/01/17 13:15 Pulse Ox 97 02/01/17 13:15 Intake & Output 01/31/17 02/01/17 02/01/17 18:59 06:59 18:59 Other: # Voids 1 1 # Bowel Movements 1 - Exam Left axilla with decreased induration, minimal tenderness, serous drainage - Labs CBC & Chem 7: 01/30/17 17:00 02/01/17 06:44 Labs: Abnormal Lab Results - Last 24 Hours (Table) 01/31/17 01/31/17 02/01/17 Range/Units 17:39 22:01 06:44 Creatinine 0.48 L (0.52-1.04) mg/dL Glucose 135 H (74-99) mg/dL POC Glucose (mg/dL) 107 H 152 H (75-99) mg/dL Calcium 8.3 L (8.4-10.2) mg/dL 02/01/17 02/01/17 Range/Units 07:22 11:32 Creatinine (0.52-1.04) mg/dL Glucose (74-99) mg/dL POC Glucose (mg/dL) 131 H 163 H (75-99) mg/dL Calcium (8.4-10.2) mg/dL Assessment and Plan (1) Abscess of left axilla Narrative/Plan: Continue local wound care. Stable for discharge. Follow-up with infectious disease post discharge. Status: Acute
--- NOTE | 2017-02-01 14:33 | P.DS ---
Providers Date of admission: 01/30/17 17:55 Expected date of discharge: 02/01/17 Attending physician: Vaibhav Dubois Consults: 01/31/17 10:13 Consult Physician Routine Consulting Provider: Michelle Lloyd Consult Reason/Comments: axilla abscess Do you want consulting provider notified?: Yes Primary care physician: Eugene Giron [facility] Course: 41-year-old female overweight [address] 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 Patient apparently has been dealing with abscess of the left axilla for the last 2 weeks was on oral antibiotics Bactrim as an outpatient with failure to treatment. Patient just lost her father recently was dealing with his arrangement could not seek any medical help but her symptoms become much worse over the last 48 hours ended up coming to the emergency department at [facility] found to have large abscess size 107 cm in the left axilla with worsening lymph node enlargement with failure to outpatient treatment with her current condition decided to admit patient to the hospital. I'm patient be seen in general surgery and possible need I@D within the next 24 hours. In the meanwhile patient is on vancomycin IV will continue current treatment for now. 01/31: Patient underwent I&D with Dr. Bermudez with drainage of purulent foul- smelling fluid from the left axilla abscess. She is currently on IV antibiotics in the form of Levaquin and Flagyl and vancomycin. Wound culture is in process and is showing preliminary of gram-positive and gram-negative organisms. Hemoglobin A1c is 8.5. Consult with Dr. Lloyd added. Patient is started on Levemir along with Humalog scheduled with meals and on scale before meals and at bedtime. Patient understands that Levemir is not enough to control her blood sugars. 02/01: Culture from abscess has not been reported. Patient needs to be discharged home today. Patient will be discharged home on Bactrim and cultures will be monitored. Patient is also being provided a prescription for Humalog scheduled with meals which is new for her. Discharge diagnoses: 1 large left axilla abscess 2 type 2 diabetes, uncontrolled with hemoglobin A1c of 8.5. 3 elevated blood pressure: Continue conservative management on low-salt diet. 4 leukocytosis: Secondary to her current infection 5 hyperlipidemia: Was on fenofibrate before patient is not taking it lately she had significant ALLERGY to atorvastatin and statin 6 smoking: Smoking cessation 7 GERD Discharge plan: Return home Impression and plan of care have been directed as dictated by the signing physician. Nkechi Clifton nurse practitioner acting as scribe for signing physician. Patient Condition at Discharge: Good Plan - Discharge Summary New Discharge Prescriptions: INSULIN LISPRO (HumaLOG) [HumaLOG] 8 units SQ TID #3 vial Sulfamethox-Tmp 800-160Mg [Bactrim DS 800-160 mg] 1 tab PO Q12HR #20 tab Discharge Medication List Ibuprofen [Motrin] 800 mg PO Q8HR PRN 01/30/17 [History] Insulin Detemir [Levemir] 15 unit SQ W/SUPPER 01/30/17 [History] INSULIN LISPRO (HumaLOG) [HumaLOG] 8 units SQ TID #3 vial 02/01/17 [Rx] Sulfamethox-Tmp 800-160Mg [Bactrim DS 800-160 mg] 1 tab PO Q12HR #20 tab [Rx] Follow up Appointment(s)/Referral(s): Cary Bermudez DO [Doctor of Osteopathic Medicine] - 1 Week Eugene Giron MD [Primary Care Provider] - 1 Week Patient Instructions/Handouts: Vancomycin (By injection), Incision and Drainage (DC) Discharge Disposition: HOME SELF-CARE
[2017-02-01] MEDS: SODIUM CHLORIDE 0.9% 1,000 ML IV SCH (16:09)
[2017-02-01 16:25] VITALS: BP 144/91; PULSE 70; TEMP 97.9
--- NOTE | 2017-02-01 17:47 | PN ---
DATE OF SERVICE: 02/01/2017 REASON FOR FOLLOWUP: Left axillary abscess. INTERVAL HISTORY: The patient is afebrile. She is currently breathing comfortably. Pain to the left axilla is currently controlled. She denies significant chest pain or cough. No abdominal pain. She is insisting on going home. On examination, her blood pressure is 123/71 with a pulse of 67, temperature 98.9. She is 97% on room air. General description is a middle-aged female up in the room in no distress. RESPIRATORY SYSTEM: Unlabored breathing. Clear to auscultation anteriorly. HEART: S1, S2. Regular rate and rhythm. ABDOMEN: Soft. No tenderness. LEFT AXILLA: Wound is still packed. Still has some area of induration but no drainage. LABS: BUN of 11, creatinine 0.48. Wound cultures have not finalized. DIAGNOSTIC IMPRESSION AND PLAN: Patient with left axillary abscess, status post drainage, waiting for the culture to finalize. Will continue the patient on Rocephin and vancomycin. Discharge antibiotics will depend upon the culture report. However, the patient is insisting on going home. She has been told the risk of going home before the cultures are finalized. The patient did insist. She may be sent home on oral Bactrim with close outpatient followup.
== END 2017-02-01 16:25 | disposition home or self-care (01) | DRG 581 ==
LOC: EC 16:14 → 6PED 17:55
PROVIDERS: ADMIT Internal Medicine Geriatric Medicine; ATTEND Internal Medicine Geriatric Medicine
PROC: 0J960ZZ Drainage of Chest Subcutaneous Tissue and Fascia, Open Approach (ICD-10-PCS; principal; 2017-01-30 19:47)
DX: L02.412 Cutaneous abscess of left axilla (principal); E11.65 Type 2 diabetes mellitus with hyperglycemia; L03.112 Cellulitis of left axilla; E66.3 Overweight; E78.5 Hyperlipidemia, unspecified; F17.200 Nicotine dependence, unspecified, uncomplicated; K21.9 Gastro-esophageal reflux disease without esophagitis; Z88.0 Allergy status to penicillin; Z79.4 Long term (current) use of insulin; Z79.899 Other long term (current) drug therapy; R03.0 Elevated blood-pressure reading, without diagnosis of hypertension
CPT/HCPCS: 36415; 80048; 80202; 83036; 83605; 85025; 87040; 87070; 87075; 87205

== ENCOUNTER 2017-07-17 16:17 | Emergency (ER) | payer OTHER ==
[2017-07-17 16:23] VITALS: BP 142/61; PULSE 93; RESP 18; TEMP 98.3
[2017-07-17] MEDS ORDERED: methylPREDNISolone SOD SUCCI 125 MG/2 ML VIAL IM STA (16:46)
[2017-07-17] MEDS ORDERED: KETOROLAC 60 MG/2 ML VIAL IM STA (16:46)
[2017-07-17] MEDS ORDERED: ORPHENADRINE 30 MG/ML 2 ML VIAL IM STA (16:46)
--- NOTE | 2017-07-17 16:50 | ED ---
General Adult HPI - General Chief complaint: Back Pain/Injury Stated complaint: Back,Knee,groin pain Time Seen by Provider: 07/17/17 16:38 Source: patient, RN notes reviewed Mode of arrival: ambulatory Limitations: no limitations - History of Present Illness Initial comments: 41-year-old female presents emergency department with a chief complaint of right -sided back pain that radiates into the right leg 2 days. Patient states that she just has this shooting type pain that shoots on leg with numbness and tingling. Patient denies a loss by bladder function or any saddle anesthesia. Patient states she has never really had pain like this before. She does not recall any falls traumas or injuries causing the pain. Patient was concerned because it just does not seem to be getting better so she thought that she should be evaluated. Patient denies any recent fever, chills, shortness of breath, chest pain, abdominal pain, nausea vomiting, dysuria or hematuria, constipation or diarrhea, headaches or visual changes, or any other current symptoms. - Related Data Home Medications Medication Instructions Recorded Confirmed Ibuprofen [Motrin] 800 mg PO Q8HR PRN 01/30/17 01/30/17 Insulin Detemir [Levemir] 15 unit SQ W/SUPPER 01/30/17 01/30/17 Previous Rx's Medication Instructions Recorded INSULIN LISPRO (HumaLOG) [HumaLOG] 8 units SQ TID #3 vial 02/01/17 Sulfamethox-Tmp 800-160Mg [Bactrim 1 tab PO Q12HR #20 tab 02/01/17 DS 800-160 mg] Ibuprofen [Motrin] 600 mg PO Q6HR PRN #20 tab 07/17/17 Orphenadrine [Norflex] 100 mg PO Q12H #10 tablet.er 07/17/17 predniSONE 50 mg PO DAILY #5 tab 07/17/17 Allergies Allergy/AdvReac Type Severity Reaction Status Date / Time amoxicillin [Amoxicillin] Allergy Anaphylaxis Verified 07/17/17 16:23 blueberry Allergy Anaphylaxis Verified 07/17/17 16:23 atorvastatin calcium AdvReac Muscle Verified 07/17/17 16:23 [From Lipitor] Cramping Review of Systems ROS Statement: Those systems with pertinent positive or pertinent negative responses have been documented in the HPI. ROS Other: All systems not noted in ROS Statement are negative. Past Medical History Past Medical History: Diabetes Mellitus, Hyperlipidemia Additional Past Medical History / Comment(s): Recurrent abscesses History of Any Multi-Drug Resistant Organisms: None Reported Past Surgical History: Appendectomy, Section, Cholecystectomy, Uterine Ablation Additional Past Surgical History / Comment(s): Incision and drainage Past Anesthesia/Blood Transfusion Reactions: Postoperative Nausea & Vomiting ( PONV) Past Psychological History: No Psychological Hx Reported Smoking Status: Current every day smoker Past Alcohol Use History: None Reported Past Drug Use History: None Reported - Past Family History Mother Family Medical History: No Reported History General Exam - General Exam Comments Initial Comments: General: The patient is awake and alert, in no distress, and does not appear acutely ill. Eye: Pupils are equal. Neck: The neck is supple, there is no tenderness. Cardiovascular: There is a regular rate and rhythm. No murmur, rub or gallop is appreciated. Respiratory: Lungs are clear to auscultation, respirations are non-labored, breath sounds are equal. No wheezes, stridor, rales, or rhonchi. Back: There is no tenderness to palpation in the midline. There is no obvious deformity. No rashes noted. Positive straight leg raise on the right Musculoskeletal: Normal ROM, no tenderness, There is no pedal edema. There is no calf tenderness or swelling. Sensation intact. Pulses equal bilaterally 2+. Neurological: CN II-XII intact, There are no obvious motor or sensory deficits. Coordination appears grossly intact. Speech is normal. Skin: Skin is warm and dry and no rashes or lesions are noted. Psychiatric: Cooperative, appropriate mood & affect, normal judgment. Limitations: no limitations Course Vital Signs 07/17/17 16:18 Temperature 98.3 F Pulse Rate 93 Respiratory 18 Rate Blood Pressure 142/61 O2 Sat by Pulse 99 Oximetry Medical Decision Making - Medical Decision Making 41-year-old female presents emergency per chief complaint of right-sided sciatica. At this time we did give the patient injections and x-rays reviewed that does not show any acute process. This time we discussed using medications as prescribed outpatient and family's questions. They stated the Amor they are in agreement with this plan. All questions have been answered. They will be discharged. - Radiology Data Radiology results: report reviewed, image reviewed Disposition Clinical Impression: Right sided sciatica Disposition: HOME SELF-CARE Condition: Stable Instructions: Sciatica (ED), Lower Back Exercises (ED) Additional Instructions: Please use medication as discussed. Please follow up with family doctor if symptoms have not improved over the next two days. Please return to the emergency room if your symptoms increase or worsen or for any other concerns. Prescriptions: Ibuprofen [Motrin] 600 mg PO Q6HR PRN #20 tab PRN Reason: Pain Orphenadrine [Norflex] 100 mg PO Q12H #10 tablet.er predniSONE 50 mg PO DAILY #5 tab Referrals: Eugene Giron MD [Primary Care Provider] - 1-2 days Time of Disposition: 17:22
--- NOTE | 2017-07-17 17:12 | XR ---
EXAMINATION TYPE: XR lumbar spine 2 or 3V DATE OF EXAM: 07/17/2017 CLINICAL HISTORY: Low back pain for 3 days radiating to right leg. TECHNIQUE: Frontal, lateral, and oblique images of the lumbar spine are obtained. COMPARISON: None FINDINGS: There are 5 lumbar type vertebral bodies identified. The lumbar spine shows satisfactory alignment without evidence of acute fracture or dislocation. Vertebral body heights and disk space he ights are within normal limits. Minimal multilevel anterior spurring is seen. Cholecystectomy clips i n the overlying soft tissue are noted. IMPRESSION: Minimal multilevel anterior spurring otherwise unremarkable study.
== END 2017-07-17 17:27 | disposition home or self-care (01) ==
LOC: EC 16:17
DX: M54.31 Sciatica, right side (principal); E11.9 Type 2 diabetes mellitus without complications; F17.200 Nicotine dependence, unspecified, uncomplicated; Z79.4 Long term (current) use of insulin; Z88.0 Allergy status to penicillin; Z88.8 Allergy status to other drugs, medicaments and biological substances; Z91.018 Allergy to other foods
CPT/HCPCS: 99283 ×2; 96372 ×4; 72100; J2360; J2930; J1885

== ENCOUNTER 2017-08-02 13:54 | Emergency (ER) | payer OTHER ==
[2017-08-02] MEDS ORDERED: KETOROLAC 30 MG/ML 1 ML VIAL IVP STA (14:33)
[2017-08-02] MEDS ORDERED: SODIUM CHLORIDE 0.9% 1,000 ML IV STA (14:33)
--- NOTE | 2017-08-02 14:36 | ED ---
General Adult HPI - General Chief complaint: Skin/Abscess/Foreign Body Stated complaint: Vomiting/Fever Time Seen by Provider: 08/02/17 14:25 Source: patient, family, RN notes reviewed Mode of arrival: ambulatory Limitations: physical limitation - History of Present Illness Initial comments: 41-year-old female presents to the emergency department with chief complaint of abscess under the left arm. Patient states she's had this for the last 2 days. There's been no drainage or discharge from the area. She admits to history of abscesses but denies history of MRSA. Patient states she's also noticed some fluctuation of her glucose. She noticed a low-grade fever earlier today and she vomited a few times she was concerned. There is been no cough cold runny nose with this. She denies any other symptoms at this time. Patient denies any recent fever, chills, shortness of breath, chest pain, back pain, abdominal pain, nausea vomiting, numbness or tingling, dysuria or hematuria, constipation or diarrhea, headaches or visual changes, or any other current symptoms. - Related Data Home Medications Medication Instructions Recorded Confirmed Insulin Detemir [Levemir] 5 unit SQ HS 01/30/17 08/02/17 Cholecalciferol [Vitamin D3] 1,000 unit PO DAILY 08/02/17 08/02/17 INSULIN LISPRO (HumaLOG) [HumaLOG] See Protocol SQ AC-TID 08/02/17 08/02/17 Insulin Detemir [Levemir] 15 unit SQ DAILY 08/02/17 08/02/17 Nitrofurantoin Monohyd/M-Cryst 100 mg PO DIRECTED 08/02/17 08/02/17 [Macrobid] Previous Rx's Medication Instructions Recorded Sulfamethox-Tmp 800-160Mg [Bactrim 2 each PO Q12HR #56 tab 08/02/17 DS 800-160 mg] Allergies Allergy/AdvReac Type Severity Reaction Status Date / Time amoxicillin [Amoxicillin] Allergy Anaphylaxis Verified 08/02/17 14:42 blueberry Allergy Anaphylaxis Verified 08/02/17 14:42 atorvastatin calcium AdvReac Muscle Verified 08/02/17 14:42 [From Lipitor] Cramping Review of Systems ROS Statement: Those systems with pertinent positive or pertinent negative responses have been documented in the HPI. ROS Other: All systems not noted in ROS Statement are negative. Past Medical History Past Medical History: Diabetes Mellitus, Hyperlipidemia Additional Past Medical History / Comment(s): Recurrent abscesses History of Any Multi-Drug Resistant Organisms: None Reported Past Surgical History: Appendectomy, Section, Cholecystectomy, Uterine Ablation Additional Past Surgical History / Comment(s): Incision and drainage Past Anesthesia/Blood Transfusion Reactions: Postoperative Nausea & Vomiting ( PONV) Past Psychological History: No Psychological Hx Reported Smoking Status: Current every day smoker Past Alcohol Use History: None Reported Past Drug Use History: None Reported - Past Family History Mother Family Medical History: No Reported History General Exam - General Exam Comments Initial Comments: General: The patient is awake and alert, in no distress, and does not appear acutely ill. Eye: Pupils are equal, round. Ears, nose, mouth and throat: There are moist mucous membranes. Neck: The neck is supple, there is no tenderness. Cardiovascular: There is a regular rate and rhythm. No murmur, rub or gallop is appreciated. Respiratory: Lungs are clear to auscultation, respirations are non-labored, breath sounds are equal. No wheezes, stridor, rales, or rhonchi. Gastrointestinal: Soft, non-distended, non-tender abdomen without masses or organomegaly noted. There is no rebound or guarding present. No CVA tenderness. Bowel sounds are unremarkable. Back: There is no tenderness to palpation in the midline. There is no obvious deformity. No rashes noted. Musculoskeletal: Does appear to have a large abscess under the left arm that is actively draining. Normal ROM, no tenderness, There is no pedal edema. There is no calf tenderness or swelling. Sensation intact. Pulses equal bilaterally 2+. Neurological: CN II-XII intact, There are no obvious motor or sensory deficits. Coordination appears grossly intact. Speech is normal. Skin: Skin is warm and dry and no rashes or lesions are noted. Psychiatric: Cooperative, appropriate mood & affect, normal judgment. Limitations: physical limitation Course Vital Signs 08/02/17 14:08 Temperature 98.9 F Pulse Rate 107 H Respiratory 18 Rate Blood Pressure 161/90 O2 Sat by Pulse 96 Oximetry Medical Decision Making - Medical Decision Making 41-year-old female presents for left arm abscess. At this time patient's abscess drained by itself on examination. At this time patient's laboratory is reviewed and does show hyperglycemia. Be indicated. We will start patient on antibiotics. We discussed follow-up and return parameters. We discussed outpatient family's questions. He stated the Amor management plan. This and will be discharged home. - Lab Data Result diagrams: 08/02/17 14:25 08/02/17 14:25 Lab Results 08/02/17 08/02/17 08/02/17 Range/Units 14:25 14:25 14:25 WBC 12.5 H (3.8-10.6) k/uL RBC 4.77 (3.80-5.40) m/uL Hgb 14.7 (11.4-16.0) gm/dL Hct 44.0 (34.0-46.0) % MCV 92.2 (80.0-100.0) fL MCH 30.9 (25.0-35.0) pg MCHC 33.5 (31.0-37.0) g/dL RDW 13.5 (11.5-15.5) % Plt Count 217 (150-450) k/uL Neutrophils % 73 % Lymphocytes % 18 % Monocytes % 5 % Eosinophils % 2 % Basophils % 0 % Neutrophils # 9.1 H (1.3-7.7) k/uL Lymphocytes # 2.2 (1.0-4.8) k/uL Monocytes # 0.6 (0-1.0) k/uL Eosinophils # 0.3 (0-0.7) k/uL Basophils # 0.1 (0-0.2) k/uL Sodium 134 L (137-145) mmol/L Potassium 4.5 (3.5-5.1) mmol/L Chloride 100 (98-107) mmol/L Carbon Dioxide 25 (22-30) mmol/L Anion Gap 9 mmol/L BUN 8 (7-17) mg/dL Creatinine 0.56 (0.52-1.04) mg/dL Est GFR (MDRD) Af Amer >60 (>60 ml/min/1.73 sqM) Est GFR (MDRD) Non-Af >60 (>60 ml/min/1.73 sqM) Glucose 351 H (74-99) mg/dL POC Glucose (mg/dL) (75-99) mg/dL POC Glu Paper Plate Machine Tender ID Plasma Lactic Acid Rigo 1.5 (0.7-2.0) mmol/L Calcium 9.0 (8.4-10.2) mg/dL Total Bilirubin 0.5 (0.2-1.3) mg/dL AST 26 (14-36) U/L ALT 34 (9-52) U/L Alkaline Phosphatase 137 H (38-126) U/L Total Protein 6.7 (6.3-8.2) g/dL Albumin 3.6 (3.5-5.0) g/dL Acetone, Qual Negative (Negative) 08/02/17 Range/Units 16:31 WBC (3.8-10.6) k/uL RBC (3.80-5.40) m/uL Hgb (11.4-16.0) gm/dL Hct (34.0-46.0) % MCV (80.0-100.0) fL MCH (25.0-35.0) pg MCHC (31.0-37.0) g/dL RDW (11.5-15.5) % Plt Count (150-450) k/uL Neutrophils % % Lymphocytes % % Monocytes % % Eosinophils % % Basophils % % Neutrophils # (1.3-7.7) k/uL Lymphocytes # (1.0-4.8) k/uL Monocytes # (0-1.0) k/uL Eosinophils # (0-0.7) k/uL Basophils # (0-0.2) k/uL Sodium (137-145) mmol/L Potassium (3.5-5.1) mmol/L Chloride (98-107) mmol/L Carbon Dioxide (22-30) mmol/L Anion Gap mmol/L BUN (7-17) mg/dL Creatinine (0.52-1.04) mg/dL Est GFR (MDRD) Af Amer (>60 ml/min/1.73 sqM) Est GFR (MDRD) Non-Af (>60 ml/min/1.73 sqM) Glucose (74-99) mg/dL POC Glucose (mg/dL) 280 H (75-99) mg/dL POC Glu Paper Plate Machine Tender ID Floyd Acevedo Plasma Lactic Acid Rigo (0.7-2.0) mmol/L Calcium (8.4-10.2) mg/dL Total Bilirubin (0.2-1.3) mg/dL AST (14-36) U/L ALT (9-52) U/L Alkaline Phosphatase (38-126) U/L Total Protein (6.3-8.2) g/dL Albumin (3.5-5.0) g/dL Acetone, Qual (Negative) Disposition Clinical Impression: Abscess of left axilla, Hyperglycemia Disposition: HOME SELF-CARE Condition: Stable Instructions: Abscess (ED) Additional Instructions: Please use medication as discussed. Please follow up with family doctor if symptoms have not improved over the next two days. Please return to the emergency room if your symptoms increase or worsen or for any other concerns. Prescriptions: Sulfamethox-Tmp 800-160Mg [Bactrim DS 800-160 mg] 2 each PO Q12HR #56 tab Referrals: Eugene Giron MD [Primary Care Provider] - 1-2 days Time of Disposition: 17:01
[2017-08-02 14:46] LABS: Basophils # (A) 0.1 k/uL (0-0.2); Basophils % (A) 0 %; CH 31.4; CHCM 34.2; Eosinophils # (A) 0.3 k/uL (0-0.7); Eosinophils % (A) 2 %; HDW 2.86; HGB 14.7 gm/dL (11.4-16.0); Luc # (Auto) 0.25; Luc % (Auto) 2; Lymphocytes # (A) 2.2 k/uL (1.0-4.8); Lymphocytes % (A) 18 %; MCH 30.9 pg (25.0-35.0); MCHC 33.5 g/dL (31.0-37.0); MCV 92.2 fL (80.0-100.0); Mean Platelet Volume 7.5; Monocytes # (A) 0.6 k/uL (0-1.0); Monocytes % (A) 5 %; Neutrophils # (A) 9.1 k/uL (1.3-7.7); Neutrophils % (A) 73 %; RBC 4.77 m/uL (3.80-5.40); RDW 13.5 % (11.5-15.5); WBC 12.5 k/uL (3.8-10.6); WBC (Perox) 11.08
[2017-08-02 14:54] LABS: ALT 34 U/L (9-52); AST 26 U/L (14-36); Alkaline Phosphatase 137 U/L (38-126); Anion Gap 9 mmol/L; Blood Urea Nitrogen 8 mg/dL (7-17); Carbon Dioxide 25 mmol/L (22-30); Chloride 100 mmol/L (98-107); Glucose 351 mg/dL (74-99); Non-African American GFR(MDRD) >60 (>60 ml/min/1.73 sqM); Potassium 4.5 mmol/L (3.5-5.1); Sodium 134 mmol/L (137-145); Total Bilirubin 0.5 mg/dL (0.2-1.3); Total Protein 6.7 g/dL (6.3-8.2)
[2017-08-02] MEDS ORDERED: INSULIN LISPRO (humaLOG) 300 UNIT/3 ML VIAL SQ ONE (15:06)
[2017-08-02 16:48] LABS: Glucose,Whole Blood 280 mg/dL (75-99)
[2017-08-02 17:17] VITALS: BP 101/57; PULSE 86; RESP 12; TEMP 100.5
== END 2017-08-02 17:21 | disposition home or self-care (01) ==
LOC: EC 13:54
DX: L02.412 Cutaneous abscess of left axilla (principal); E11.65 Type 2 diabetes mellitus with hyperglycemia; F17.200 Nicotine dependence, unspecified, uncomplicated; Z98.890 Other specified postprocedural states; Z88.0 Allergy status to penicillin; Z88.8 Allergy status to other drugs, medicaments and biological substances; Z91.018 Allergy to other foods; Z79.4 Long term (current) use of insulin; Z79.899 Other long term (current) drug therapy
CPT/HCPCS: 99283 ×2; 96374 ×2; 96361 ×3; 36415; 80053; 82009; 83605; 85025; 87040; 87070; 87205; J1885

== ENCOUNTER 2018-03-23 20:29 | Emergency (ER) | payer OTHER ==
[2018-03-23 20:47] VITALS: BP 140/85; PULSE 97; RESP 18; TEMP 98.8
[2018-03-23] MEDS ORDERED: LIDOCAINE 1% INJ 10MG/ML (20 ML MDV) SQ STA (21:06)
[2018-03-23] MEDS ORDERED: SULFAMETH-TMP DS STARTER PACK 2 TAB BTL PO STA (21:44)
[2018-03-23] MEDS ORDERED: ACET/COD 300 MG/30 MG STARTER PACK 6 TAB BTL PO STA (21:44)
--- NOTE | 2018-03-23 21:46 | ED ---
Skin/Abscess/FB HPI - General Chief complaint: Skin/Abscess/Foreign Body Stated complaint: Under Arm Boil Time Seen by Provider: 03/23/18 20:57 Source: patient, RN notes reviewed, old records reviewed Mode of arrival: ambulatory Limitations: no limitations - History of Present Illness Initial comments: 42-year-old female presents emergency Department chief complaint of left axilla abscess. Patient states that she's had these in the past. Patient states that she's had no fevers or chills. She reports that she has had have been drinking multiple times in the past. She seems surgeon a few times but they have elected not to do surgery. She is diabetic. - Related Data Home Medications Medication Instructions Recorded Confirmed Insulin Detemir [Levemir] 5 unit SQ HS 01/30/17 03/23/18 Cholecalciferol [Vitamin D3] 1,000 unit PO DAILY 08/02/17 03/23/18 INSULIN LISPRO (HumaLOG) [HumaLOG] See Protocol SQ AC-TID 08/02/17 03/23/18 Insulin Detemir [Levemir] 15 unit SQ DAILY 08/02/17 03/23/18 Previous Rx's Medication Instructions Recorded Acetaminophen with Codeine 1 tab PO Q6H PRN 3 Days #12 tab 03/23/18 [Tylenol w/codeine #3] Sulfamethox-Tmp 800-160Mg [Bactrim 2 tab PO Q12HR #40 03/23/18 DS 800-160 mg] Allergies Allergy/AdvReac Type Severity Reaction Status Date / Time amoxicillin [Amoxicillin] Allergy Anaphylaxis Verified 03/23/18 20:47 blueberry Allergy Anaphylaxis Verified 03/23/18 20:47 atorvastatin calcium AdvReac Muscle Verified 03/23/18 20:47 [From Lipitor] Cramping Review of Systems ROS Statement: Those systems with pertinent positive or pertinent negative responses have been documented in the HPI. ROS Other: All systems not noted in ROS Statement are negative. Past Medical History Past Medical History: Diabetes Mellitus, Hyperlipidemia Additional Past Medical History / Comment(s): Recurrent abscesses History of Any Multi-Drug Resistant Organisms: None Reported Past Surgical History: Appendectomy, Section, Cholecystectomy, Uterine Ablation Additional Past Surgical History / Comment(s): Incision and drainage Past Anesthesia/Blood Transfusion Reactions: Postoperative Nausea & Vomiting ( PONV) Past Psychological History: No Psychological Hx Reported Smoking Status: Current every day smoker Past Alcohol Use History: None Reported Past Drug Use History: None Reported - Past Family History Mother Family Medical History: No Reported History General Exam - General Exam Comments Initial Comments: This is a 42-year-old female. Alert and oriented. No significant distress. General: Well appearing, well nourished, in no distress. Oriented x 3, normal mood and affect . Ambulating without difficulty. Skin: Good turgor, no rash, unusual bruising or prominent lesions Hair: Normal texture and distribution. HEENT: Head: Normocephalic, atraumatic, no visible or palpable masses, depressions, or scaring. Pharynx: Mucosa non-inflamed, no tonsillar hypertrophy or exudate Neck: Supple, without lesions, bruits, or adenopathy, thyroid non-enlarged and non-tender Heart: No cardiomegaly or thrills; regular rate and rhythm, no murmur or gallop Lungs: Clear to auscultation and percussion Abdomen: Bowel sounds normal, no tenderness, organomegaly, masses, or hernia Back: Spine normal without deformity or tenderness, no CVA tenderness Extremities: Patient has significant hydradenitis of her edema in the left axilla. Evidence of a palpable abscess measuring 5 cm. Musculoskeletal: Normal gait and station. No misalignment, asymmetry, crepitation, defects, tenderness, masses, effusions, decreased range of motion, instability, atrophy or abnormal strength or tone in the head, neck, spine, ribs , pelvis or extremities. Neurologic: CN 2-12 normal. Sensation to pain, touch, and proprioception normal. DTRs normal in upper and lower extremities. No pathologic reflexes. Psychiatric: Oriented X3, intact recent and remote memory, judgment and insight , normal mood and affect. Limitations: no limitations Course Vital Signs 03/23/18 20:46 Temperature 98.8 F Pulse Rate 97 Respiratory 18 Rate Blood Pressure 140/85 O2 Sat by Pulse 97 Oximetry Procedures - Incision & Drainage Site: upper extremity (left axilla) Size (cm): 6 Anesthetic Used: lidocaine 1% Amount (mLs): 1 I&D Cleaning Method: Chloroprep, Alcohol Wipe Sterile Field Used?: Yes Scalpel Used: #11 I&D Drainage Obtained: Pus, Blood Packing: Iodoform Culture Obtained?: Yes Patient Tolerated Procedure: well, no complications Medical Decision Making - Medical Decision Making Patient's a 42-year-old female. Alert and oriented. Presents with left axilla abscess. Has a history of hydradenitis suppuritica. I did attempt incision and drainage over the abscess. She hurt he had tracks with open holes from previous drainage. I was able to express a significant amount of pus. She refuses to allow me to pack this. She refuses for me to get even more pus that was in there due to pain. I discussed starting her on antibiotics. Discussed appropriate follow-up with primary care provider. All questions answered. Culture obtained. Disposition Clinical Impression: Abscess of left axilla Disposition: HOME SELF-CARE Condition: Good Instructions: Abscess Incision and Drainage (ED) Additional Instructions: Patient advised follow-up with her primary care provider. Recommended possibly seeing a surgeon for removal of the ducts. Return to the emergency department if any alarming signs or symptoms occur. Prescriptions: Acetaminophen with Codeine [Tylenol w/codeine #3] 1 tab PO Q6H PRN 3 Days #12 tab PRN Reason: Pain Sulfamethox-Tmp 800-160Mg [Bactrim DS 800-160 mg] 2 tab PO Q12HR #40 Is patient prescribed a controlled substance at d/c from ED?: No When asked, does pt state using other controlled substances?: No If prescribed controlled substance>3 days was MAPS reviewed?: No If opioid is for acute pain is fill amount 7 days or less?: No If Rx opioid, was Start Talking consent form obtained?: No Referrals: Eugene Giron MD [Primary Care Provider] - 1-2 days Time of Disposition: 21:45
== END 2018-03-23 22:00 | disposition home or self-care (01) ==
LOC: EC 20:29
DX: L02.412 Cutaneous abscess of left axilla (principal); L73.2 Hidradenitis suppurativa; E11.9 Type 2 diabetes mellitus without complications; F17.200 Nicotine dependence, unspecified, uncomplicated; Z79.4 Long term (current) use of insulin; Z79.899 Other long term (current) drug therapy; Z88.0 Allergy status to penicillin; Z88.8 Allergy status to other drugs, medicaments and biological substances; Z91.018 Allergy to other foods; Z98.890 Other specified postprocedural states
CPT/HCPCS: 87070; 87205; 99283; 10060; J2001

== ENCOUNTER 2018-05-24 17:58 | Emergency (ER) | payer OTHER ==
[2018-05-24 18:22] VITALS: RESP 18; TEMP 98.5
[2018-05-24] MEDS ORDERED: PROPARACAINE 0.5% OPHTH DROPS 15 ML BTL LEFT EYE STA (20:23)
[2018-05-24] MEDS ORDERED: DIPH,PERTUS(ACELL)TETVAC-LF 0.5 ML VIAL IM ONE (20:23)
--- NOTE | 2018-05-24 21:06 | ED ---
Eye Problem HPI - General Chief complaint: Eye Problems Stated complaint: drug screen Time Seen by Provider: 05/24/18 20:08 Source: patient, RN notes reviewed Mode of arrival: ambulatory Limitations: no limitations - History of Present Illness Initial comments: 42-year-old female presented to the emergency department for left eye foreign body. Patient states that she was at work had her glasses with side vanessa on and states that she was deep burning some metal and it flung into her eye. Patient states that her last tetanus was 7 years ago. Patient denies any blurred vision she states it does feel irritated and she try to flush it out. - Related Data Home Medications Medication Instructions Recorded Confirmed Insulin Detemir [Levemir] 5 unit SQ HS 01/30/17 03/23/18 Cholecalciferol [Vitamin D3] 1,000 unit PO DAILY 08/02/17 03/23/18 INSULIN LISPRO (HumaLOG) [HumaLOG] See Protocol SQ AC-TID 08/02/17 03/23/18 Insulin Detemir [Levemir] 15 unit SQ DAILY 08/02/17 03/23/18 Previous Rx's Medication Instructions Recorded Acetaminophen with Codeine 1 tab PO Q6H PRN 3 Days #12 tab 03/23/18 [Tylenol w/codeine #3] Sulfamethox-Tmp 800-160Mg [Bactrim 2 tab PO Q12HR #40 03/23/18 DS 800-160 mg] Allergies Allergy/AdvReac Type Severity Reaction Status Date / Time amoxicillin [Amoxicillin] Allergy Anaphylaxis Verified 05/24/18 18:22 blueberry Allergy Anaphylaxis Verified 05/24/18 18:22 atorvastatin calcium AdvReac Muscle Verified 05/24/18 18:22 [From Lipitor] Cramping Review of Systems ROS Statement: Those systems with pertinent positive or pertinent negative responses have been documented in the HPI. ROS Other: All systems not noted in ROS Statement are negative. Past Medical History Past Medical History: Diabetes Mellitus, Hyperlipidemia Additional Past Medical History / Comment(s): Recurrent abscesses History of Any Multi-Drug Resistant Organisms: None Reported Past Surgical History: Appendectomy, Section, Cholecystectomy, Uterine Ablation Additional Past Surgical History / Comment(s): Incision and drainage Past Anesthesia/Blood Transfusion Reactions: Postoperative Nausea & Vomiting ( PONV) Past Psychological History: No Psychological Hx Reported Smoking Status: Current every day smoker Past Alcohol Use History: None Reported Past Drug Use History: None Reported - Past Family History Mother Family Medical History: No Reported History General Exam Limitations: no limitations General appearance: alert, in no apparent distress Head exam: Present: atraumatic, normocephalic, normal inspection Eye exam: Present: PERRL, EOMI, other (Foreign body noted in the 3 o'clock position, 9 o'clock position). Absent: scleral icterus, conjunctival injection , periorbital swelling Pupils: Present: other (Patient had florescent dye uptake with Wood's lamp and the 3 o'clock position of the cornea, there is a small uptake in the sclera in the 9 o'clock position) ENT exam: Present: normal exam, mucous membranes moist Neck exam: Present: normal inspection. Absent: tenderness, meningismus, lymphadenopathy Respiratory exam: Present: normal lung sounds bilaterally. Absent: respiratory distress, wheezes, rales, rhonchi, stridor Cardiovascular Exam: Present: regular rate, normal rhythm, normal heart sounds. Absent: systolic murmur, diastolic murmur, rubs, gallop, clicks Course Vital Signs 05/24/18 18:18 Temperature 98.5 F Pulse Rate 100 Respiratory 18 Rate Blood Pressure 140/81 O2 Sat by Pulse 93 L Oximetry Procedures - Procedures Initial comment: Foreign body removal left eye 2 drops of proparacaine were used to anesthetize eye, sterile Q-tip was used to remove the foreign body with no complication. Medical Decision Making - Medical Decision Making 42-year-old female presented for foreign body of her left eye. This was removed patient was placed on Tobrex eyedrops she'll follow-up with ophthalmology on Sunday return for any worsening symptoms. Her tetanus was updated. Disposition Clinical Impression: Corneal abrasion, left, Foreign body of left eye Disposition: HOME SELF-CARE Condition: Stable Instructions: Eye Foreign Body (ED) Additional Instructions: Place one drop of Tobrex eyedrops every 4 hours in your left eye for 5 days Please return to the Emergency Department if symptoms worsen or any other concerns. Is patient prescribed a controlled substance at d/c from ED?: No Referrals: Eugene Giron MD [Primary Care Provider] - 1-2 days Addison Power MD [STAFF PHYSICIAN] - 1-2 days Time of Disposition: 21:06
[2018-05-24] MEDS ORDERED: TOBRAMYCIN 0.3% OPHTH DROPS 5 ML BTL LEFT EYE STA (21:07)
[2018-05-24 21:36] VITALS: BP 141/71; PULSE 88
== END 2018-05-24 21:39 | disposition home or self-care (01) ==
LOC: EC 17:58
DX: T15.02XA Foreign body in cornea, left eye, initial encounter (principal); E11.9 Type 2 diabetes mellitus without complications; F17.200 Nicotine dependence, unspecified, uncomplicated; Z79.4 Long term (current) use of insulin; Z88.0 Allergy status to penicillin; Z88.8 Allergy status to other drugs, medicaments and biological substances; Z91.018 Allergy to other foods; Y93.89 Activity, other specified; Y92.69 Other specified industrial and construction area as the place of occurrence of the external cause; Y99.0 Civilian activity done for income or pay
CPT/HCPCS: 65220; 90471; 90715; 99283

== ENCOUNTER 2018-07-18 07:47 | Day surgery (SDC) | payer OTHER ==
[2018-07-11 15:57] VITALS: BMI 39.0
[2018-07-18 08:19] VITALS: PULSE 83; RESP 20; TEMP 98.7
[2018-07-18 08:34] LABS: Glucose,Whole Blood 225 mg/dL (75-99)
[2018-07-18] MEDS ORDERED: INSULIN ASPART 100 UNIT/ML 1 ML 10 ML VIAL SQ ONE (08:35)
[2018-07-18] MEDS: BENZOCAINE SPRAY 1 CAN MUCOUS MEM ONE ×2 (10:11→10:18)
[2018-07-18] MEDS ORDERED: SODIUM CHLORIDE 0.9% 500 ML IV ONE (10:19)
[2018-07-18] MEDS ORDERED: MIDAZOLAM 2 MG/2 ML VIAL IVP ONE (10:32)
[2018-07-18] MEDS ORDERED: fentaNYL (PF) 50 MCG/ML 2 ML AMP IVP ONE (10:32)
[2018-07-18] MEDS ORDERED: SODIUM CHLORIDE 0.9% 1,000 ML IV SCH (11:00)
--- NOTE | 2018-07-18 11:13 | ECHOT ---
TRANSESOPHAGEAL ECHOCARDIOGRAM INDICATION: TIA. PROCEDURE NOTE: After obtaining informed consent, transesophageal echocardiogram was performed in left lateral position using an Omniplane probe. Local and IV sedation were obtained using Xylocaine spray, 2 mg of Versed and 50 mcg of fentanyl. The patient tolerated the procedure well without any obvious immediate complications. The patient received moderate conscious sedation. Total sedation time was 15 minutes. FINDINGS: 1. Interatrial septum: There is no evidence of [id number] shunt by color-flow Doppler or [id number] shunt by agitated saline contrast study. 2. Left ventricle: Left ventricle has normal size and systolic function. 3. Left atrium, right atrium, right ventricle seen within normal limits. 4. There is no intracardiac thrombus noted within the left atrium, right atrium, right ventricle or left atrial appendage. 5. Aorta shows mild atherosclerotic changes. 6. Aortic valve is a 3-leaflet valve. There is no evidence of aortic stenosis regurgitation. 7. There is mild mitral regurgitation noted. 8. There is mild tricuspid regurgitation noted. 9. This was a technically challenging study as patient was coughing throughout the study and both the image acquisition and capture was difficult. CONCLUSIONS: 1. Normal left ventricular systolic function. 2. No evidence of shunting across the interatrial septum. 3. No evidence of intracardiac thrombus. PLAN: Patient will keep her followup with me. MMODL / IJN: [id number] /
[2018-07-18 15:00] VITALS: BP 125/80
== END 2018-07-18 13:29 | disposition home or self-care (01) ==
LOC: CATHCVL 07:47
PROVIDERS: ATTEND Internal Medicine Cardiovascular Disease
DX: G45.9 Transient cerebral ischemic attack, unspecified (principal); R07.2 Precordial pain; E78.2 Mixed hyperlipidemia; E11.9 Type 2 diabetes mellitus without complications; F17.210 Nicotine dependence, cigarettes, uncomplicated; Z82.49 Family history of ischemic heart disease and other diseases of the circulatory system; Z79.4 Long term (current) use of insulin; Z79.51 Long term (current) use of inhaled steroids; Z79.899 Other long term (current) drug therapy; Z88.8 Allergy status to other drugs, medicaments and biological substances; Z88.0 Allergy status to penicillin
CPT/HCPCS: 93312; 93320; 93325; 81025; J2250; J3010

== ENCOUNTER 2018-08-13 10:03 | Emergency (ER) | payer OTHER ==
[2018-08-13 10:10] VITALS: RESP 18
--- NOTE | 2018-08-13 10:51 | ED ---
General Adult HPI - General Chief complaint: Fall Stated complaint: FALL DOWN FLIGHT OF STAIRS Time Seen by Provider: 08/13/18 10:19 Source: patient, RN notes reviewed Mode of arrival: ambulatory Limitations: no limitations - History of Present Illness Initial comments: Patient is a 42-year-old female presented to the emergency room today with a chief complaint of a fall occurred approximately 2 hours ago. Patient does admit that she slipped going down some stairs and fell down approximate 14 steps. She states she slid down. She does admit to some pain to the right knee. Admits to pain to her lower back. Does admit to a headache. She said no loss conscious. Sensations on a blood thinner. Patient does admit that pains in her back and knee are worse with movements. She denies any other complaints or symptoms at this time. Patient denies any recent fever, chills, shortness of breath, chest pain, abdominal pain, nausea or vomiting, visual changes, or any other complaints. - Related Data Home Medications Medication Instructions Recorded Confirmed INSULIN LISPRO (HumaLOG) [HumaLOG] See Protocol SQ AC-TID PRN 08/02/17 08/13/18 Insulin Glargine [Lantus] 30 unit SQ HS 07/11/18 08/13/18 Pravastatin Sodium [Pravachol] 10 mg PO HS 08/13/18 08/13/18 metFORMIN HCL ER [Glucophage Xr] 1,000 mg PO PC-SUPPER 08/13/18 08/13/18 Previous Rx's Medication Instructions Recorded Cyclobenzaprine [Flexeril] 10 mg PO TID #20 tab 08/13/18 Ibuprofen [Motrin] 600 mg PO Q6HR PRN #40 day 08/13/18 Allergies Allergy/AdvReac Type Severity Reaction Status Date / Time amoxicillin [Amoxicillin] Allergy Anaphylaxis Verified 08/13/18 10:27 blueberry Allergy Anaphylaxis Verified 08/13/18 10:27 Penicillins Allergy Anaphylaxis Verified 08/13/18 10:27 atorvastatin calcium AdvReac Muscle Verified 08/13/18 10:27 [From Lipitor] Cramping Review of Systems ROS Statement: Those systems with pertinent positive or pertinent negative responses have been documented in the HPI. ROS Other: All systems not noted in ROS Statement are negative. Past Medical History Past Medical History: Asthma, COPD, Diabetes Mellitus, Hyperlipidemia Additional Past Medical History / Comment(s): Recurrent abscesses, migraines, possible TIA-being tested for, History of Any Multi-Drug Resistant Organisms: None Reported Past Surgical History: Appendectomy, Section, Cholecystectomy, Tubal Ligation, Uterine Ablation Additional Past Surgical History / Comment(s): Incision and drainage Past Anesthesia/Blood Transfusion Reactions: Postoperative Nausea & Vomiting ( PONV) Past Psychological History: No Psychological Hx Reported Smoking Status: Current every day smoker Past Alcohol Use History: None Reported Past Drug Use History: None Reported - Past Family History Mother Family Medical History: No Reported History General Exam - General Exam Comments Initial Comments: General: The patient is awake and alert, in no distress, and does not appear acutely ill. Eye: Pupils are equal, round and reactive to light. Extra-ocular movements are intact. No nystagmus. There is normal conjunctiva bilaterally. No signs of icterus. Ears, nose, mouth and throat: There are moist mucous membranes and no oral lesions. Neck: The neck is supple, there is no tenderness or JVD. Cardiovascular: There is a regular rate and rhythm. No murmur, rub or gallop is appreciated. Respiratory: Lungs are clear to auscultation, respirations are non-labored, breath sounds are equal. No wheezes, stridor, rales, or rhonchi. Gastrointestinal: Soft, non-distended, non-tender abdomen without masses or organomegaly noted. There is no rebound or guarding present. No CVA tenderness. Musculoskeletal: Normal ROM. Normal appearance of stroke, thoracic and lumbar spine with no step-off or deformity. Patient does have tenderness beginning at thoracic T5 going down to S1. No bruising or swelling. No tenderness of cervical spine. Sensation intact. Strength 5/5. Pulses equal bilaterally 2+. Neurological: A&O x 3. CN II-XII intact, There are no obvious motor or sensory deficits. Coordination appears grossly intact. Speech is normal. Skin: Skin is warm and dry and no rashes or lesions are noted. Psychiatric: Cooperative, appropriate mood & affect, normal judgment. Limitations: no limitations Course Vital Signs 08/13/18 10:08 Temperature 97.9 F Pulse Rate 89 Respiratory 18 Rate Blood Pressure 140/74 O2 Sat by Pulse 96 Oximetry Medical Decision Making - Medical Decision Making Patient's CT of the head and neck, x-rays of the back, pelvis, and knee are negative for any acute abnormality. Results were discussed with the patient. Patient will be given Toradol shot prior to discharge. She'll be continued on anti-inflammatories and muscle relaxant. She denies muscle relaxers make drowsy. She is advised to follow-up family doctor return here to the emergency room symptoms increase worsen. Disposition Clinical Impression: Fall, Knee contusion, Back pain, Head injury Disposition: HOME SELF-CARE Condition: Good Instructions: Acute Low Back Pain (ED) Additional Instructions: Please use medication as discussed. Please follow-up with family doctor in the next 2 days of symptoms have not improved. Please return to emergency room if the symptoms increase or worsen or for any other concerns. Prescriptions: Cyclobenzaprine [Flexeril] 10 mg PO TID #20 tab Ibuprofen [Motrin] 600 mg PO Q6HR PRN #40 day PRN Reason: Pain Is patient prescribed a controlled substance at d/c from ED?: No Referrals: Eugene Giron MD [Primary Care Provider] - 1-2 days Time of Disposition: 12:05
--- NOTE | 2018-08-13 11:04 | CT ---
EXAMINATION TYPE: CT brain ilsa mireles DATE OF EXAM: 08/13/2018 COMPARISON: None HISTORY: Fell down stairs CT DLP: 984.[address] Brain: Unenhanced CT of the brain was performed. The ventricles, basal cisterns and sulci overlying the cerebral convexities demonstrate a normal appe arance. There is no evidence for intracranial hemorrhage or sulcal effacement. No mass effects are seen. If symptoms persist consider MRI. Osseous calvarium is intact. IMPRESSION: No acute intracranial process CT Cervical Spine: Unenhanced CT of the cervical spine was performed with bone and soft tissue window settings submitted . Coronal and sagittal reconstruction is obtained. There is normal alignment and prevertebral soft tissues. I do not see evidence for fracture or sublu xation. No significant degenerative changes are present. The lung apices are clear. IMPRESSION: No evidence for acute fracture or subluxation of the cervical spine.
--- NOTE | 2018-08-13 11:30 | XR ---
EXAMINATION TYPE: XR lumbosacral spine min 4V DATE OF EXAM: 08/13/2018 CLINICAL HISTORY: Pain after fall TECHNIQUE: Frontal, lateral, and oblique images of the lumbar spine are obtained. COMPARISON: 07/17/2017 FINDINGS: There are 5 lumbar type vertebral bodies identified. The lumbar spine shows satisfactory alignment without evidence of acute fracture or dislocation. Vertebral body heights and disk space he ights are within normal limits. The oblique images appear within normal limits. Minimal facet arthr opathy is seen at L4-L5 and L5-S1 with very small anterior osteophytes are seen on the prior. Mild at herosclerosis of the abdominal aorta. The overlying soft tissue appears unremarkable. IMPRESSION: No acute fracture or malalignment is seen in the lumbar spine.
--- NOTE | 2018-08-13 11:32 | XR ---
EXAMINATION TYPE: XR knee complete RT DATE OF EXAM: 08/13/2018 CLINICAL HISTORY: Right knee pain. TECHNIQUE: Three views of the right knee are obtained. COMPARISON: None. FINDINGS: There is no acute fracture/dislocation evident in right knee. The tri-compartment joint s paces demonstrate marginal osteophytes and joint space narrowing. The overlying soft tissue appears unremarkable. IMPRESSION: There is no acute fracture or dislocation in the right knee. Moderate tricompartmental a rthropathy.
--- NOTE | 2018-08-13 11:41 | XR ---
EXAMINATION TYPE: XR thoracic spine complete DATE OF EXAM: 08/13/2018 CLINICAL HISTORY: Fall with thoracic back pain. TECHNIQUE: Frontal, lateral, and swimmer's view of thoracic spine are obtained. COMPARISON: None. FINDINGS: Thoracic spine show satisfactory alignment without evidence of acute fracture or dislocatio n. Vertebral body heights and disc space heights are preserved. Visualized ribs are unremarkable. Cholecystectomy clips are noted in the right upper quadrant. IMPRESSION: No acute fracture or dislocation is seen in the thoracic spine.
--- NOTE | 2018-08-13 11:42 | XR ---
EXAMINATION TYPE: XR pelvis AP view DATE OF EXAM: 08/13/2018 CLINICAL HISTORY: Pelvic pain after a fall. TECHNIQUE: A single AP view of the pelvis is obtained. COMPARISON: None. FINDINGS: There is no acute fracture/dislocation evident in the pelvis. The hip and sacroiliac join ts appear symmetric and unremarkable. The overlying soft tissue appears unremarkable. IMPRESSION: There is no acute fracture or dislocation in the pelvis.
[2018-08-13] MEDS ORDERED: KETOROLAC 60 MG/2 ML VIAL IM STA (12:04)
[2018-08-13 12:48] VITALS: BP 131/84; PULSE 72; TEMP 98.2
== END 2018-08-13 12:48 | disposition home or self-care (01) ==
LOC: EC 10:03
DX: S80.01XA Contusion of right knee, initial encounter (principal); S09.90XA Unspecified injury of head, initial encounter; M54.5 Low back pain; J44.9 Chronic obstructive pulmonary disease, unspecified; E11.9 Type 2 diabetes mellitus without complications; E78.5 Hyperlipidemia, unspecified; F17.200 Nicotine dependence, unspecified, uncomplicated; Z79.4 Long term (current) use of insulin; Z79.899 Other long term (current) drug therapy; Z88.0 Allergy status to penicillin; Z88.8 Allergy status to other drugs, medicaments and biological substances; Z91.018 Allergy to other foods; W10.9XXA Fall (on) (from) unspecified stairs and steps, initial encounter
CPT/HCPCS: 72072; 72110; 72170; 73562; 72125; 70450; 99284; 96372; J1885

== ENCOUNTER 2019-02-18 10:24 | Emergency (ER) | payer OTHER ==
[2019-02-18] MEDS ORDERED: IBUPROFEN 600 MG TAB PO STA (10:54)
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
--- NOTE | 2019-02-18 11:26 | XR ---
EXAMINATION TYPE: XR elbow complete RT DATE OF EXAM: 02/18/2019 COMPARISON: None HISTORY: Fall pain TECHNIQUE: Three-view right elbow FINDINGS: Radius aligns normally with the humerus. Anterior fat pad is normal. 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 Joint spaces are preserved. Minimal spurring is at the humerus. Follow-up studies can be performed 7-10 days from acute trauma for continued pain IMPRESSION: 1. No acute osseous abnormality
--- NOTE | 2019-02-18 11:27 | XR ---
EXAMINATION TYPE: XR shoulder complete RT DATE OF EXAM: 02/18/2019 COMPARISON: NONE HISTORY: Pain TECHNIQUE: Shoulder examined in 3 FINDINGS: The humeral head articulates with the glenoid. The acromio-clavicular junction is normal. No acute fractures or dislocations are evident. A follow up study can be performed 7-10 days from acute trauma for continued pain. IMPRESSION: 1. Normal Shoulder
--- NOTE | 2019-02-18 11:28 | XR ---
EXAMINATION TYPE: XR wrist complete RT DATE OF EXAM: 02/18/2019 COMPARISON: None HISTORY: Fall, pain TECHNIQUE: 4 view right wrist FINDINGS: No acute fractures are evident. Joint spaces are preserved. Soft tissues are normal. If there is pain at the anatomic snuff box, nuclear medicine bone scan could be performed for additio nal evaluation. Follow-up exams can be performed 7-10 days from acute trauma for continued pain. IMPRESSION: 1. Normal 4 view right wrist
[2019-02-18 12:03] VITALS: BP 119/64; PULSE 78; RESP 16; TEMP 97.9
== END 2019-02-18 12:03 | disposition home or self-care (01) ==
LOC: EC 10:24
DX: M79.601 Pain in right arm (principal); E11.9 Type 2 diabetes mellitus without complications; E78.5 Hyperlipidemia, unspecified; F17.200 Nicotine dependence, unspecified, uncomplicated; Z53.29 Procedure and treatment not carried out because of patient's decision for other reasons; Z79.4 Long term (current) use of insulin; Z79.899 Other long term (current) drug therapy; Z88.0 Allergy status to penicillin; Z91.018 Allergy to other foods; Z88.8 Allergy status to other drugs, medicaments and biological substances; Y04.8XXA Assault by other bodily force, initial encounter
CPT/HCPCS: 99283

== ENCOUNTER 2019-03-15 00:56 | Emergency (ER) | payer OTHER ==
[2019-03-15 01:04] VITALS: RESP 18; TEMP 97.9
--- NOTE | 2019-03-15 01:30 | ED ---
Extremity Problem HPI - General Chief complaint: Extremity Problem,Nontraumatic Stated complaint: left leg weakness Time Seen by Provider: 03/15/19 01:08 Source: patient Mode of arrival: wheelchair Limitations: physical limitation - History of Present Illness Initial comments: This patient is a 43-year-old woman who presents to be evaluated for right knee pain. She states that it had started Sunday and seems to be getting progressively worse. She has tried using ice and also [id number] is and states that now that seems to be helping. She states the pain is sharp, constant, moderately severe, but worse with attempting to walk or stand on it. She has not noted relieving factors. She denies any associated symptoms. She denies having fever or chills, chest pain, dyspnea, palpitations. She has not noticed change in bladder or bowel function. No rash. Patient does not recall any injury to her knee MD Complaint: joint pain Onset/Timin -: days(s) Location: right, knee -: No myalgia, Yes arthralgia, No fever, No associated dyspnea, No associated chest pain Radiation: none Quality: stabbing Consistency: constant Improves with: nothing Worsens with: weight bearing, walking Associated Symptoms: denies other symptoms - Related Data Home Medications Medication Instructions Recorded Confirmed Insulin Glargine [Lantus] 10 unit SQ BID 07/11/18 02/18/19 Pravastatin Sodium [Pravachol] 10 mg PO DAILY 08/13/18 02/18/19 metFORMIN HCL ER [Glucophage Xr] 1,000 mg PO BID 08/13/18 02/18/19 Insulin Lispro [Admelog] 5 unit SQ BID 02/18/19 02/18/19 Lisinopril [Zestril] 2.5 mg PO DAILY 02/18/19 02/18/19 Sucralfate [Carafate] 1 gm PO DAILY 02/18/19 02/18/19 Previous Rx's Medication Instructions Recorded Ibuprofen [Motrin] 600 mg PO Q8HR PRN #20 tab 03/15/19 Allergies Allergy/AdvReac Type Severity Reaction Status Date / Time amoxicillin [Amoxicillin] Allergy Anaphylaxis Verified 03/15/19 01:04 blueberry Allergy Anaphylaxis Verified 03/15/19 01:04 Penicillins Allergy Anaphylaxis Verified 03/15/19 01:04 atorvastatin calcium AdvReac Muscle Verified 03/15/19 01:04 [From Lipitor] Cramping Review of Systems ROS Statement: Those systems with pertinent positive or pertinent negative responses have been documented in the HPI. ROS Other: All systems not noted in ROS Statement are negative. Constitutional: Denies: fever, chills, weakness Respiratory: Denies: cough, dyspnea Cardiovascular: Denies: chest pain, palpitations, edema Gastrointestinal: Denies: abdominal pain, vomiting, diarrhea Genitourinary: Denies: dysuria, frequency, hematuria Musculoskeletal: Reports: arthralgia. Denies: back pain, myalgia Skin: Denies: rash Neurological: Denies: headache, weakness, numbness Past Medical History Past Medical History: Asthma, COPD, Diabetes Mellitus, Hyperlipidemia Additional Past Medical History / Comment(s): Recurrent abscesses, migraines, possible TIA-being tested for, History of Any Multi-Drug Resistant Organisms: None Reported Past Surgical History: Appendectomy, Section, Cholecystectomy, Tubal Ligation, Uterine Ablation Additional Past Surgical History / Comment(s): Incision and drainage Past Anesthesia/Blood Transfusion Reactions: Postoperative Nausea & Vomiting (PONV) Past Psychological History: No Psychological Hx Reported Smoking Status: Former smoker Past Alcohol Use History: Occasional Past Drug Use History: Marijuana - Past Family History Mother Family Medical History: No Reported History General Exam Limitations: physical limitation General appearance: alert, in no apparent distress Respiratory exam: Present: normal lung sounds bilaterally. Absent: respiratory distress, wheezes, rales, rhonchi, stridor Cardiovascular Exam: Present: regular rate, normal rhythm, normal heart sounds, other (Normal pedal pulse and capillary refill) Extremities exam: Present: normal inspection, normal capillary refill. Absent: pedal edema, calf tenderness Right Upper Leg exam: Present: normal inspection Knee exam: Present: tenderness, swelling, full knee extension. Absent: full ROM, abrasion, laceration, ecchymosis, deformity, crepitus, dislocation, erythema, effusion, pain w/ pronation/supination, posterior draw sign, pain/laxity with valgus, pain/laxity with varus Lower Leg exam: Present: normal inspection, full ROM. Absent: tenderness, swelling, abrasion Ankle exam: Present: normal inspection, full ROM. Absent: tenderness, swelling, abrasion Foot/Toe exam: Present: normal inspection, full ROM. Absent: tenderness, swelling, abrasion Neurovascular tendon exam: Present: no vascular compromise. Absent: abnormal cap refill Back exam: Present: normal inspection. Absent: CVA tenderness (R), CVA tenderness (L) Neurological exam: Present: alert. Absent: motor sensory deficit Skin exam: Present: warm, dry, intact, normal color. Absent: rash Course Vital Signs 03/15/19 03/15/19 01:00 03:50 Temperature 97.9 F Pulse Rate 77 82 Respiratory 18 18 Rate Blood Pressure 131/72 120/76 O2 Sat by Pulse 95 98 Oximetry Medical Decision Making - Medical Decision Making This patient is a 43-year-old woman with right knee pain. She does not recall definite injury. Imaging negative. Patient exam does not reveal any obvious ligamentous laxity. Discussed appropriate further care and follow-up as well as return parameters. - Lab Data Result diagrams: 03/15/19 02:11 03/15/19 02:11 Lab Results 03/15/19 03/15/19 Range/Units 02:11 02:11 WBC 11.1 H (3.8-10.6) k/uL RBC 5.12 (3.80-5.40) m/uL Hgb 15.2 (11.4-16.0) gm/dL Hct 46.4 H (34.0-46.0) % MCV 90.5 (80.0-100.0) fL MCH 29.7 (25.0-35.0) pg MCHC 32.8 (31.0-37.0) g/dL RDW 13.8 (11.5-15.5) % Plt Count 251 (150-450) k/uL Neutrophils % 60 % Lymphocytes % 31 % Monocytes % 4 % Eosinophils % 4 % Basophils % 1 % Neutrophils # 6.6 (1.3-7.7) k/uL Lymphocytes # 3.4 (1.0-4.8) k/uL Monocytes # 0.4 (0-1.0) k/uL Eosinophils # 0.5 (0-0.7) k/uL Basophils # 0.1 (0-0.2) k/uL ESR 14 (0-20) mm/hr Sodium 137 (137-145) mmol/L Potassium 4.8 (3.5-5.1) mmol/L Chloride 103 (98-107) mmol/L Carbon Dioxide 24 (22-30) mmol/L Anion Gap 10 mmol/L BUN 27 H (7-17) mg/dL Creatinine 0.72 (0.52-1.04) mg/dL Est GFR (CKD-EPI)AfAm >90 (>60 ml/min/1.73 sqM) Est GFR (CKD-EPI)NonAf >90 (>60 ml/min/1.73 sqM) Glucose 337 H (74-99) mg/dL Calcium 9.6 (8.4-10.2) mg/dL Total Bilirubin 0.3 (0.2-1.3) mg/dL AST 17 (14-36) U/L ALT 20 (9-52) U/L Alkaline Phosphatase 87 (38-126) U/L Total Protein 6.4 (6.3-8.2) g/dL Albumin 3.9 (3.5-5.0) g/dL Disposition Clinical Impression: Arthralgia, Hyperglycemia Disposition: HOME SELF-CARE Condition: Fair Instructions (If sedation given, give patient instructions): Arthralgia (ED), Diabetic Hyperglycemia (ED) Prescriptions: Ibuprofen [Motrin] 600 mg PO Q8HR PRN #20 tab PRN Reason: Pain Is patient prescribed a controlled substance at d/c from ED?: No Referrals: Eugene Giron MD [Primary Care Provider] - 1-2 days
[2019-03-15 02:19] LABS: Basophils # (A) 0.1 k/uL (0-0.2); Basophils % (A) 1 %; Eosinophils # (A) 0.5 k/uL (0-0.7); Eosinophils % (A) 4 %; HCT 46.4 % (34.0-46.0); HGB 15.2 gm/dL (11.4-16.0); Lymphocytes # (A) 3.4 k/uL (1.0-4.8); Lymphocytes % (A) 31 %; MCH 29.7 pg (25.0-35.0); MCHC 32.8 g/dL (31.0-37.0); MCV 90.5 fL (80.0-100.0); Monocytes # (A) 0.4 k/uL (0-1.0); Monocytes % (A) 4 %; Neutrophils # (A) 6.6 k/uL (1.3-7.7); Neutrophils % (A) 60 %; Platelet Count 251 k/uL (150-450); RBC 5.12 m/uL (3.80-5.40); RDW 13.8 % (11.5-15.5); WBC 11.1 k/uL (3.8-10.6)
[2019-03-15] MEDS ORDERED: HYDROcodone/APAP 5-325MG 1 EACH TAB PO STA (02:22)
[2019-03-15] MEDS ORDERED: IBUPROFEN 600 MG TAB PO STA (02:22)
--- NOTE | 2019-03-15 02:22 | XR ---
EXAM: XR Right Knee, 3 views CLINICAL HISTORY: ITS.REASON XR Reason: Pain TECHNIQUE: Three views of the right knee. COMPARISON: 08/13/18 x-ray FINDINGS: Bones/joints: No acute fracture. No dislocation. Minimal medial compartment joint space loss. Mild spurring at the patellofemoral compartment. Soft tissues: Mild joint effusion. IMPRESSION: No acute findings.
[2019-03-15 02:40] LABS: ALT 20 U/L (9-52); AST 17 U/L (14-36); African American GFR (CKD) >90 (>60 ml/min/1.73 sqM); Albumin 3.9 g/dL (3.5-5.0); Alkaline Phosphatase 87 U/L (38-126); Anion Gap 10 mmol/L; Blood Urea Nitrogen 27 mg/dL (7-17); Calcium 9.6 mg/dL (8.4-10.2); Carbon Dioxide 24 mmol/L (22-30); Chloride 103 mmol/L (98-107); Glucose 337 mg/dL (74-99); Potassium 4.8 mmol/L (3.5-5.1); Sodium 137 mmol/L (137-145); Total Bilirubin 0.3 mg/dL (0.2-1.3); Total Protein 6.4 g/dL (6.3-8.2)
[2019-03-15 03:04] LABS: Erythrocyte Sedimentation Rate 14 mm/hr (0-20)
[2019-03-15] MEDS ORDERED: SODIUM CHLORIDE 0.9% 1,000 ML IV ONE (03:04)
[2019-03-15] MEDS ORDERED: INSULIN REGULAR 100 UNIT/ML VIAL SQ STA (03:04)
[2019-03-15] MEDS ORDERED: traMADol 50 MG STARTER PACK 3 TAB BTL PO STA (03:16)
[2019-03-15 04:07] VITALS: BP 120/76; PULSE 82
--- NOTE | 2019-03-17 06:07 | CDI ---
Documentation Clarification OP Dear Rod SUTTON MD Please do addendum to ED report for missing Physical examination. Thank you, Dilan Esteves [employer]ipper Setter [employer] If you have any questions, please contact Director Of Nurses Registry at [phone] [facility]
== END 2019-03-15 03:50 | disposition home or self-care (01) ==
LOC: EC 00:56
DX: M25.561 Pain in right knee (principal); E11.65 Type 2 diabetes mellitus with hyperglycemia; E78.5 Hyperlipidemia, unspecified; Z87.891 Personal history of nicotine dependence; Z79.4 Long term (current) use of insulin; Z79.899 Other long term (current) drug therapy; Z88.0 Allergy status to penicillin; Z91.018 Allergy to other foods; Z88.8 Allergy status to other drugs, medicaments and biological substances
CPT/HCPCS: 36415; 80053; 85025; 85652; 99285

== ENCOUNTER 2019-06-01 20:12 | Emergency (ER) | payer OTHER ==
[2019-06-01 20:28] VITALS: BP 154/87; PULSE 78; RESP 16; TEMP 98.8
[2019-06-01] MEDS ORDERED: LIDOCAINE/EPINEPHR/TETRACAINE 5 ML BOTTLE TOPICAL ONE (20:51)
--- NOTE | 2019-06-01 21:14 | ED ---
General Adult HPI - General Chief complaint: Skin/Abscess/Foreign Body Stated complaint: L arm pain Time Seen by Provider: 06/01/19 20:31 Source: patient Mode of arrival: ambulatory Limitations: no limitations - History of Present Illness Initial comments: Patient is a 43-year-old female presenting to emergency Department with a chief complaint of an abscess in the armpit. Patient reports recurrent abscesses in the left axilla which she typically gets drained. Patient reports normally they did not get so large. Patient denies taking any antibiotics for the pain. Patient denies any discharge. Patient reports the pain is 8 out of 10 and constant. Patient reports the pain is exacerbated with palpation in the region. Patient denies fever, nausea or vomiting. - Related Data Home Medications Medication Instructions Recorded Confirmed Insulin Glargine [Lantus] 10 unit SQ BID 07/11/18 02/18/19 Pravastatin Sodium [Pravachol] 10 mg PO DAILY 08/13/18 02/18/19 metFORMIN HCL ER [Glucophage Xr] 1,000 mg PO BID 08/13/18 02/18/19 Insulin Lispro [Admelog] 5 unit SQ BID 02/18/19 02/18/19 Lisinopril [Zestril] 2.5 mg PO DAILY 02/18/19 02/18/19 Sucralfate [Carafate] 1 gm PO DAILY 02/18/19 02/18/19 Previous Rx's Medication Instructions Recorded Ibuprofen [Motrin] 600 mg PO Q8HR PRN #20 tab 03/15/19 Cephalexin [Keflex] 500 mg PO Q6HR #40 cap 06/01/19 Sulfamethox-Tmp 800-160Mg [Bactrim 1 each PO Q12HR #20 tab 06/01/19 Ds] Allergies Allergy/AdvReac Type Severity Reaction Status Date / Time amoxicillin [Amoxicillin] Allergy Anaphylaxis Verified 06/01/19 20:28 blueberry Allergy Anaphylaxis Verified 06/01/19 20:28 Penicillins Allergy Anaphylaxis Verified 06/01/19 20:28 atorvastatin calcium AdvReac Muscle Verified 06/01/19 20:28 [From Lipitor] Cramping Review of Systems ROS Statement: Those systems with pertinent positive or pertinent negative responses have been documented in the HPI. ROS Other: All systems not noted in ROS Statement are negative. Past Medical History Past Medical History: Asthma, COPD, Diabetes Mellitus, Hyperlipidemia Additional Past Medical History / Comment(s): Recurrent abscesses, migraines, possible TIA-being tested for, History of Any Multi-Drug Resistant Organisms: None Reported Past Surgical History: Appendectomy, Section, Cholecystectomy, Tubal Ligation, Uterine Ablation Additional Past Surgical History / Comment(s): Incision and drainage Past Anesthesia/Blood Transfusion Reactions: Postoperative Nausea & Vomiting (PONV) Past Psychological History: No Psychological Hx Reported Smoking Status: Former smoker Past Alcohol Use History: Occasional Past Drug Use History: Marijuana - Past Family History Mother Family Medical History: No Reported History General Exam - General Exam Comments Initial Comments: General: Well-developed well-nourished distress HEENT: Normocephalic/atraumatic, PERLL, pharynx erythema, swallowing well, EAC no erythema, no exudates, TM clear, no cervical lymph nodes Neck: Supple, nontender, trachea midline Chest/Lungs: Normal respirations, no signs of respiratory distress clear to auscultation bilaterally no wheezes, rales, rhonchi Cardiac: Regular rate and rhythm, normal S1-S2, no murmurs rubs or gallops Abdomen/GI: Soft nontender, bowel sounds equal or quadrant x4, no guarding, no rebound no CVA tenderness Musculoskeletal: 3 cm diameter abscess noted on the left axilla, 2 cm diameter of fluctuance, 3 cm induration, no discharge noted, erythema, pain with palpation. Skin: Warmth, no rashes or lesions, no cyanosis or diaphoresis Neurologic: AAO x 3, CN 2-12 intact, Psychiatric: Mood and affect normal, judgment normal Limitations: no limitations Course Vital Signs 06/01/19 20:26 Temperature 98.8 F Pulse Rate 78 Respiratory 16 Rate Blood Pressure 154/87 O2 Sat by Pulse 96 Oximetry Procedures - Incision & Drainage Consent Obtained: verbal consent Indication: Abscess Site: other (Left axilla) Size (cm): 4 Anesthetic Used: lidocaine 1% Amount (mLs): 10 I&D Cleaning Method: Iodine Sterile Field Used?: No Scalpel Used: #11 Needle Aspiration Performed?: No Irrigation Performed?: No I&D Drainage Obtained: Pus, Blood Culture Obtained?: No Complications: pain Patient Tolerated Procedure: well Medical Decision Making - Medical Decision Making Patient is a 43-year-old male presenting to emergency Department with a chief complaint of an abscess in the armpit. Patient was given Toradol for pain. The region was locally anesthetized with lidocaine. Incision and drainage was performed. Large amounts of pus were removed. Upon drainage patient reports feeling much better and reports pressure relieve at the site of the abscess. Patient will be discharged with Bactrim and Keflex. Strict return parameters were thoroughly discussed patient was understanding and agreeable. Case discussed physician. Disposition Clinical Impression: Abscess of left axilla Disposition: HOME SELF-CARE Condition: Stable Instructions (If sedation given, give patient instructions): Abscess (ED) Additional Instructions: Please take prescribed medication as directed. Please follow with primary care. Please return to emergency department if symptoms worsen. Prescriptions: Sulfamethox-Tmp 800-160Mg [Bactrim Ds] 1 each PO Q12HR #20 tab Cephalexin [Keflex] 500 mg PO Q6HR #40 cap Is patient prescribed a controlled substance at d/c from ED?: No Referrals: Eugene Giron MD [Primary Care Provider] - 1-2 days Time of Disposition: 22:31
[2019-06-01] MEDS ORDERED: KETOROLAC 30 MG/ML 1 ML VIAL IM STA (22:26)
== END 2019-06-01 22:40 | disposition home or self-care (01) ==
LOC: EC 20:12
DX: L02.412 Cutaneous abscess of left axilla (principal); E11.9 Type 2 diabetes mellitus without complications; E78.5 Hyperlipidemia, unspecified; Z87.891 Personal history of nicotine dependence; Z88.0 Allergy status to penicillin; Z88.8 Allergy status to other drugs, medicaments and biological substances; Z91.018 Allergy to other foods; Z79.4 Long term (current) use of insulin; Z79.899 Other long term (current) drug therapy; Z98.890 Other specified postprocedural states
CPT/HCPCS: 99283; 10060; 96372; J1885

== ENCOUNTER → 2020-12-07 | Outpatient (CLI) | payer OTHER ==
--- NOTE | 2020-12-09 14:40 | MM ---
Reason for exam: screening (asymptomatic). Last mammogram was performed 9 years and 2 months ago. History: Patient is postmenopausal. Family history of breast cancer in aunt at age 60. Physical Findings: A clinical breast exam by your physician is recommended on an annual basis and results should be correlated with mammographic findings. MG 3D Screening Mammo W/Cad Bilateral CC and MLO view(s) were taken. There are scattered fibroglandular densities. Benign oil cyst calcification on the left breast. There is no discrete abnormality. Prominent bilateral axillary nodes. Query recent vaccine administered? ASSESSMENT: Benign, BI-RAD 2 RECOMMENDATION: Routine screening mammogram of both breasts in 1 year. Manage patient on a clinical basis. Clinical follow up of prominent bilateral axillary nodes. Query recent vaccine administered.
== END | disposition home or self-care (01) ==
LOC: RADMAMWWP 15:31
PROVIDERS: ATTEND Family Medicine
DX: Z12.31 Encounter for screening mammogram for malignant neoplasm of breast (principal)
CPT/HCPCS: 77063; 77067

== ENCOUNTER 2021-02-17 10:34 | Emergency (ER) | payer OTHER ==
[2021-02-17 10:49] VITALS: BP 118/67; PULSE 90; RESP 18; TEMP 98
[2021-02-17] MEDS ORDERED: LIDOCAINE 1% INJ 10MG/ML (20 ML MDV) SQ ONE (11:12)
--- NOTE | 2021-02-17 11:30 | ED ---
Skin/Abscess/FB HPI - General Chief complaint: Skin/Abscess/Foreign Body Stated complaint: Boil in R armpit Time Seen by Provider: 02/17/21 10:58 Source: patient Mode of arrival: ambulatory - History of Present Illness Initial comments: Patient is a 45-year-old female, with hx of hidradenitis suppurativa, presenting to the emergency Department with complaints of abscess in her right armpit for the last week. Patient states she went to [facility] in [place], had an I&D performed 3 days ago however she states they were not able to get much fluid out. Patient states she continues to have pain and swelling in the area so she came back in for recheck. Patient states she's been having low-grade temperature at home. She is on Keflex for the last week. She does have history of these. She denies any nausea or vomiting. She denies chest pain or shortness of breath. She has no further complaints at this time. - Related Data Home Medications Medication Instructions Recorded Confirmed metFORMIN HCL ER [Glucophage Xr] 1,000 mg PO BID 08/13/18 02/17/21 lisinopriL [Zestril] 2.5 mg PO DAILY 02/18/19 02/17/21 Clindamycin HCl 300 mg PO TID 02/17/21 02/17/21 FLUoxetine HCL [PROzac] 20 mg PO DAILY 02/17/21 02/17/21 Insulin Glargine,Hum.rec.anlog 20 unit SQ BID 02/17/21 02/17/21 [Lantus Solostar] Insulin Lispro [humaLOG Kwikpen] 10 unit SQ AC-TID 02/17/21 02/17/21 Rosuvastatin [Crestor] 10 mg PO HS 02/17/21 02/17/21 Varenicline [Chantix Continuing 1 mg PO BID 02/17/21 02/17/21 Pack] Previous Rx's Medication Instructions Recorded Sulfamethox-Tmp 800-160Mg [Bactrim 1 each PO Q12HR #20 tab 02/17/21 Ds] Allergies Allergy/AdvReac Type Severity Reaction Status Date / Time amoxicillin [Amoxicillin] Allergy Anaphylaxis Verified 02/17/21 11:14 blueberry Allergy Anaphylaxis Verified 02/17/21 11:14 Penicillins Allergy Anaphylaxis Verified 02/17/21 11:14 atorvastatin calcium AdvReac Muscle Verified 02/17/21 11:14 [From Lipitor] Cramping Review of Systems ROS Statement: Those systems with pertinent positive or pertinent negative responses have been documented in the HPI. ROS Other: All systems not noted in ROS Statement are negative. Past Medical History Past Medical History: Asthma, COPD, Diabetes Mellitus, Hyperlipidemia Additional Past Medical History / Comment(s): Recurrent abscesses, migraines, possible TIA-being tested for, History of Any Multi-Drug Resistant Organisms: None Reported Past Surgical History: Appendectomy, Section, Cholecystectomy, Tubal Ligation, Uterine Ablation Additional Past Surgical History / Comment(s): Incision and drainage Past Anesthesia/Blood Transfusion Reactions: Postoperative Nausea & Vomiting (PONV) Past Psychological History: No Psychological Hx Reported Smoking Status: Current every day smoker Past Alcohol Use History: Occasional Past Drug Use History: Marijuana - Past Family History Mother Family Medical History: No Reported History General Exam - General Exam Comments Initial Comments: GENERAL: Patient is well-developed and well-nourished. Patient is nontoxic and in no acute distress. HEAD: Atraumatic, normocephalic. EYES: Pupils equal round and reactive to light, extraocular movements intact, sclera anicteric, conjunctiva are normal. Eyelids were unremarkable. ENT: Nares patent, oropharynx clear without exudates. Moist mucous membranes. NECK: Normal range of motion, supple without lymphadenopathy or JVD. LUNGS: Unlabored respirations. Breath sounds clear to auscultation bilaterally and equal. No wheezes rales or rhonchi. HEART: Regular rate and rhythm without murmurs, rubs or gallops. ABDOMEN: Soft, nontender, normoactive bowel sounds. No guarding, no rebound. No masses appreciated. : Deferred MUSCULOSKELETAL: Normal extremities with adequate strength and normal range of motion, no pitting or edema. No clubbing or cyanosis. NEUROLOGICAL: Patient is alert and oriented x 3. Motor and sensory are also intact. Symmetrical smile. Normal speech, normal gait. PSYCH: Normal mood, normal affect. SKIN: Warm, Dry, normal turgor, no rashes. Patient has a 1cm abscess of the right ax illa area, there is some mild erythema, fluctuance and induration noted. Course Vital Signs 02/17/21 10:44 Temperature 98 F Pulse Rate 90 Respiratory 18 Rate Blood Pressure 118/67 O2 Sat by Pulse 95 Oximetry Procedures - Incision & Drainage Consent Obtained: verbal consent, written consent Indication: Abscess Site: upper extremity (Right axilla) Size (cm): 1 Anesthetic Used: lidocaine 1% Amount (mLs): 3 I&D Cleaning Method: Alcohol Wipe Scalpel Used: #11 Needle Aspiration Performed?: No I&D Drainage Obtained: Pus, Blood Culture Obtained?: No Patient Tolerated Procedure: well Medical Decision Making - Medical Decision Making Patient is a 45-year-old female presenting with a one severe abscess of the right axilla. She does have history of these. She has been taking Keflex. I&D was performed, pus, blood was draining. She does have some relief of her symptoms. Patient will be started on Bactrim as well. She can follow up with her PCP. She is in agreement with this plan of care. She stable for discharge. Case discussed with Dr. Ceron. Disposition Clinical Impression: Abscess of right axilla Disposition: HOME SELF-CARE Condition: Stable Instructions (If sedation given, give patient instructions): Abscess Incision and Drainage (ED) Additional Instructions: Please return to the Emergency Department if symptoms worsen or any other concerns. Take antibiotic as prescribed. Do warm compresses to the area to further drainage. Follow-up with her PCP. Prescriptions: Sulfamethox-Tmp 800-160Mg [Bactrim Ds] 1 each PO Q12HR #20 tab Is patient prescribed a controlled substance at d/c from ED?: No Referrals: Vaibhav Ponce MD [Primary Care Provider] - 1-2 days Time of Disposition: 12:05
== END 2021-02-17 12:35 | disposition home or self-care (01) ==
LOC: EC 10:34
DX: L02.411 Cutaneous abscess of right axilla (principal); J44.9 Chronic obstructive pulmonary disease, unspecified; E78.5 Hyperlipidemia, unspecified; G43.909 Migraine, unspecified, not intractable, without status migrainosus; E11.9 Type 2 diabetes mellitus without complications; F17.200 Nicotine dependence, unspecified, uncomplicated; F12.90 Cannabis use, unspecified, uncomplicated; Z88.0 Allergy status to penicillin; Z79.899 Other long term (current) drug therapy; Z79.4 Long term (current) use of insulin
CPT/HCPCS: 99282; 10060; J2001

== ENCOUNTER 2021-02-18 11:07 | Observation (INO) | payer OTHER ==
[2021-02-18 11:24] LABS: Glucose,Whole Blood 122 mg/dL (75-99)
[2021-02-18] MEDS ORDERED: HYDROmorphone 0.5 MG/0.5 ML SYRINGE IVP STA (11:41)
[2021-02-18] MEDS ORDERED: CLINDAMYCIN 600 MG in DEXTROSE 5% IN WATER 50 ML IVPB STA ×2 (11:42)
--- NOTE | 2021-02-18 11:43 | ED ---
General Adult HPI - General Chief complaint: Skin/Abscess/Foreign Body Stated complaint: Boil R armpit/revisit Time Seen by Provider: 02/18/21 11:27 Source: patient Mode of arrival: ambulatory Limitations: no limitations - History of Present Illness Initial comments: 45-year-old female presenting today for chief complaint of right axilla abscess. Patient states the past week she's been battling pain and drainage from the right armpit. Patient states she had it incised and drained twice once at [facility] and once here in the ER yesterday. pt states that she continues to have severe pain, discomfort and recorded a temperature of 102F prior to taking antipyretics this AM. She also states she sugars have been super high ~400s until she took 14U of insulin (now 122). Patient denies any additional areas of infection. She admits to chills she denies chest pain towards breath nausea vomiting diarrhea or cough congestion. Remainder review of system negative - Related Data Home Medications Medication Instructions Recorded Confirmed metFORMIN HCL ER [Glucophage Xr] 1,000 mg PO BID 08/13/18 02/17/21 lisinopriL [Zestril] 2.5 mg PO DAILY 02/18/19 02/17/21 Clindamycin HCl 300 mg PO TID 02/17/21 02/17/21 FLUoxetine HCL [PROzac] 20 mg PO DAILY 02/17/21 02/17/21 Insulin Glargine,Hum.rec.anlog 20 unit SQ BID 02/17/21 02/17/21 [Lantus Solostar] Insulin Lispro [humaLOG Kwikpen] 10 unit SQ AC-TID 02/17/21 02/17/21 Rosuvastatin [Crestor] 10 mg PO HS 02/17/21 02/17/21 Varenicline [Chantix Continuing 1 mg PO BID 02/17/21 02/17/21 Pack] Previous Rx's Medication Instructions Recorded Sulfamethox-Tmp 800-160Mg [Bactrim 1 each PO Q12HR #20 tab 02/17/21 Ds] Allergies Allergy/AdvReac Type Severity Reaction Status Date / Time amoxicillin [Amoxicillin] Allergy Anaphylaxis Verified 02/18/21 11:23 blueberry Allergy Anaphylaxis Verified 02/18/21 11:23 Penicillins Allergy Anaphylaxis Verified 02/18/21 11:23 atorvastatin calcium AdvReac Muscle Verified 02/18/21 11:23 [From Lipitor] Cramping Review of Systems ROS Statement: Those systems with pertinent positive or pertinent negative responses have been documented in the HPI. ROS Other: All systems not noted in ROS Statement are negative. Past Medical History Past Medical History: Asthma, COPD, Diabetes Mellitus, Hyperlipidemia Additional Past Medical History / Comment(s): Recurrent abscesses, migraines, possible TIA-being tested for, History of Any Multi-Drug Resistant Organisms: None Reported Past Surgical History: Appendectomy, Section, Cholecystectomy, Tubal Ligation, Uterine Ablation Additional Past Surgical History / Comment(s): Incision and drainage, Past Anesthesia/Blood Transfusion Reactions: Postoperative Nausea & Vomiting (PONV) Past Psychological History: No Psychological Hx Reported Smoking Status: Current every day smoker Past Alcohol Use History: Occasional Past Drug Use History: Marijuana - Past Family History Mother Family Medical History: No Reported History General Exam - General Exam Comments Initial Comments: General: The patient is awake and alert, no distress, but tearful. Eye: Pupils are equal, round and reactive to light, extra-ocular movements are intact. No nystagmus. There is normal conjunctiva bilaterally. No signs of icterus. Ears, nose, mouth and throat: There are moist mucous membranes and no oral lesions. Neck: The neck is supple, there is no tenderness or JVD. Cardiovascular: There is a regular rate and rhythm. No murmur, rub or gallop is appreciated. Respiratory: Lungs are clear to auscultation, respirations are non-labored, breath sounds are equal. No wheezes, stridor, rales, or rhonchi. Musculoskeletal: Normal ROM, no tenderness. Strength 5/5. Sensation intact. Pulses equal bilaterally 2+. Neurological: A&O x 3. CN II-XII intact, There are no obvious motor or sensory deficits. Coordination appears grossly intact. Speech is normal. Skin: Skin is warm and dry and no rashes. Numerous raised fluctuant raised, red areas in right axilla. very painful, mild surrounding erythema. Psychiatric: Cooperative, appropriate mood & affect, normal judgment. Limitations: no limitations Course Vital Signs 02/18/21 11:17 Temperature 98.1 F Pulse Rate 85 Respiratory 16 Rate Blood Pressure 119/66 O2 Sat by Pulse 95 Oximetry Medical Decision Making - Medical Decision Making 45-year-old female presenting to the ER today for chief complaint of right axilla pain. hx of two I&D in last week. fevers at home. pt diabetic, insulin dependent. consulted Dr Kaye who is agreeable to admission, with IV abx and possible surgical drainage. pt agreeable to care plan and admission. pt medications ordered in ER. Pt evaluated by Dr Kaye in ER, began draining wnated admission changed to medicine with him and ID on consult. Dr Gutierres accepted the admission. Admission order changed. - Lab Data Result diagrams: 02/18/21 11:54 02/18/21 11:54 Lab Results 02/18/21 02/18/21 02/18/21 Range/Units 11:23 11:54 11:54 WBC 14.7 H (3.8-10.6) k/uL RBC 4.87 (3.80-5.40) m/uL Hgb 14.6 (11.4-16.0) gm/dL Hct 43.3 (34.0-46.0) % MCV 88.9 (80.0-100.0) fL MCH 30.1 (25.0-35.0) pg MCHC 33.8 (31.0-37.0) g/dL RDW 14.1 (11.5-15.5) % Plt Count 263 (150-450) k/uL MPV 7.5 Neutrophils % 72 % Lymphocytes % 20 % Monocytes % 5 % Eosinophils % 2 % Basophils % 0 % Neutrophils # 10.6 H (1.3-7.7) k/uL Lymphocytes # 3.0 (1.0-4.8) k/uL Monocytes # 0.7 (0-1.0) k/uL Eosinophils # 0.3 (0-0.7) k/uL Basophils # 0.1 (0-0.2) k/uL Sodium 141 (137-145) mmol/L Potassium 4.6 (3.5-5.1) mmol/L Chloride 108 H (98-107) mmol/L Carbon Dioxide 23 (22-30) mmol/L Anion Gap 10 mmol/L BUN 16 (7-17) mg/dL Creatinine 0.78 (0.52-1.04) mg/dL Est GFR (CKD-EPI)AfAm >90 (>60 ml/min/1.73 sqM) Est GFR (CKD-EPI)NonAf >90 (>60 ml/min/1.73 sqM) Glucose 125 H (74-99) mg/dL POC Glucose (mg/dL) 122 H (75-99) mg/dL POC Glu Nuclear Chemistry Technician ID Rebecca Terry Plasma Lactic Acid Rigo (0.7-2.0) mmol/L Calcium 9.5 (8.4-10.2) mg/dL Total Bilirubin 0.4 (0.2-1.3) mg/dL AST 14 (14-36) U/L ALT 10 (4-34) U/L Alkaline Phosphatase 102 (38-126) U/L Total Protein 6.8 (6.3-8.2) g/dL Albumin 4.0 (3.5-5.0) g/dL 02/18/21 Range/Units 11:54 WBC (3.8-10.6) k/uL RBC (3.80-5.40) m/uL Hgb (11.4-16.0) gm/dL Hct (34.0-46.0) % MCV (80.0-100.0) fL MCH (25.0-35.0) pg MCHC (31.0-37.0) g/dL RDW (11.5-15.5) % Plt Count (150-450) k/uL MPV Neutrophils % % Lymphocytes % % Monocytes % % Eosinophils % % Basophils % % Neutrophils # (1.3-7.7) k/uL Lymphocytes # (1.0-4.8) k/uL Monocytes # (0-1.0) k/uL Eosinophils # (0-0.7) k/uL Basophils # (0-0.2) k/uL Sodium (137-145) mmol/L Potassium (3.5-5.1) mmol/L Chloride (98-107) mmol/L Carbon Dioxide (22-30) mmol/L Anion Gap mmol/L BUN (7-17) mg/dL Creatinine (0.52-1.04) mg/dL Est GFR (CKD-EPI)AfAm (>60 ml/min/1.73 sqM) Est GFR (CKD-EPI)NonAf (>60 ml/min/1.73 sqM) Glucose (74-99) mg/dL POC Glucose (mg/dL) (75-99) mg/dL POC Glu Nuclear Chemistry Technician ID Plasma Lactic Acid Rigo 1.2 (0.7-2.0) mmol/L Calcium (8.4-10.2) mg/dL Total Bilirubin (0.2-1.3) mg/dL AST (14-36) U/L ALT (4-34) U/L Alkaline Phosphatase (38-126) U/L Total Protein (6.3-8.2) g/dL Albumin (3.5-5.0) g/dL Disposition Clinical Impression: Abscess of right axilla Disposition: ADMITTED IP TO THIS [facility] Condition: Stable Is patient prescribed a controlled substance at d/c from ED?: No Time of Disposition: 11:42 Decision to Admit Reason: Admit from EC Decision Date: 02/18/21 Decision Time: 11:42
[2021-02-18] MEDS ORDERED: NALOXONE 0.4 MG/ML 1 ML VIAL IV PRN ×2 (11:47→12:55)
[2021-02-18] MEDS: SODIUM CHLORIDE 0.9% 1,000 ML IV SCH ×2 (12:08→23:54)
[2021-02-18 12:12] LABS: Basophils # (A) 0.1 k/uL (0-0.2); Basophils % (A) 0 %; Eosinophils # (A) 0.3 k/uL (0-0.7); Eosinophils % (A) 2 %; HCT 43.3 % (34.0-46.0); HGB 14.6 gm/dL (11.4-16.0); Lymphocytes % (A) 20 %; MCH 30.1 pg (25.0-35.0); MCHC 33.8 g/dL (31.0-37.0); MCV 88.9 fL (80.0-100.0); Mean Platelet Volume 7.5; Monocytes # (A) 0.7 k/uL (0-1.0); Monocytes % (A) 5 %; Neutrophils # (A) 10.6 k/uL (1.3-7.7); Neutrophils % (A) 72 %; Platelet Count 263 k/uL (150-450); RBC 4.87 m/uL (3.80-5.40); RDW 14.1 % (11.5-15.5); WBC 14.7 k/uL (3.8-10.6)
[2021-02-18 12:21] LABS: ALT 10 U/L (4-34); AST 14 U/L (14-36); African American GFR (CKD) >90 (>60 ml/min/1.73 sqM); Alkaline Phosphatase 102 U/L (38-126); Anion Gap 10 mmol/L; Blood Urea Nitrogen 16 mg/dL (7-17); Calcium 9.5 mg/dL (8.4-10.2); Carbon Dioxide 23 mmol/L (22-30); Chloride 108 mmol/L (98-107); Glucose 125 mg/dL (74-99); Non-African American GFR(CKD) >90 (>60 ml/min/1.73 sqM); Potassium 4.6 mmol/L (3.5-5.1); Sodium 141 mmol/L (137-145); Total Bilirubin 0.4 mg/dL (0.2-1.3); Total Protein 6.8 g/dL (6.3-8.2)
[2021-02-18] MEDS ORDERED: VANCOMYCIN IV PER PHARMACY 1 EACH MISC MISCELLANE PRN (12:24)
[2021-02-18] MEDS ORDERED: HYDROmorphone 1 MG/ML 1 ML SYRINGE IVP STA (12:24)
--- NOTE | 2021-02-18 12:29 | P.GSCN ---
History of Present Illness Consult date: 02/18/21 Reason for Consult: Hidradenitis right axilla History of present illness: This a 41-year-old female who's had multiple emergency room visits due to right axillary hidradenitis. Patient underwent recent incision drainage. Patient a fever last night she complaints of increased pain. Patient was examined in her emergency room bay. She has spontaneous a rupture of her subcutaneous abscess. Patient's blood sugar was 400. Past Medical History Past Medical History: Asthma, COPD, Diabetes Mellitus, Hyperlipidemia Additional Past Medical History / Comment(s): Recurrent abscesses, migraines, possible TIA-being tested for, History of Any Multi-Drug Resistant Organisms: None Reported Past Surgical History: Appendectomy, Section, Cholecystectomy, Tubal Ligation, Uterine Ablation Additional Past Surgical History / Comment(s): Incision and drainage, Past Anesthesia/Blood Transfusion Reactions: Postoperative Nausea & Vomiting (PONV) Past Psychological History: No Psychological Hx Reported Smoking Status: Current every day smoker Past Alcohol Use History: Occasional Past Drug Use History: Marijuana - Past Family History Mother Family Medical History: No Reported History Medications and Allergies Home Medications Medication Instructions Recorded Confirmed Type metFORMIN HCL ER [Glucophage Xr] 1,000 mg PO BID 08/13/18 02/17/21 History lisinopriL [Zestril] 2.5 mg PO DAILY 02/18/19 02/17/21 History Clindamycin HCl 300 mg PO TID 02/17/21 02/17/21 History FLUoxetine HCL [PROzac] 20 mg PO DAILY 02/17/21 02/17/21 History Insulin Glargine,Hum.rec.anlog 20 unit SQ BID 02/17/21 02/17/21 History [Lantus Solostar] Insulin Lispro [humaLOG Kwikpen] 10 unit SQ AC-TID 02/17/21 02/17/21 History Rosuvastatin [Crestor] 10 mg PO HS 02/17/21 02/17/21 History Sulfamethox-Tmp 800-160Mg [Bactrim 1 each PO Q12HR #20 tab 02/17/21 Rx Ds] Varenicline [Chantix Continuing 1 mg PO BID 02/17/21 02/17/21 History Pack] Allergies Allergy/AdvReac Type Severity Reaction Status Date / Time amoxicillin [Amoxicillin] Allergy Anaphylaxis Verified 02/18/21 11:23 blueberry Allergy Anaphylaxis Verified 02/18/21 11:23 Penicillins Allergy Anaphylaxis Verified 02/18/21 11:23 atorvastatin calcium AdvReac Muscle Verified 02/18/21 11:23 [From Lipitor] Cramping Surgical - Exam Vital Signs Temp Pulse Resp BP Pulse Ox 98.1 F 85 16 119/66 95 02/18/21 11:17 02/18/21 11:17 02/18/21 11:17 02/18/21 11:17 02/18/21 11:17 - General Morbid obesity with BMI 43 well developed, no distress - Eyes PERRL - ENT normal pinna - Neck no masses - Respiratory normal expansion - Cardiovascular Rhythm: regular - Abdomen Abdomen: soft, non tender - Integumentary Spontaneous draining abscess right axilla Results - Labs 02/18/21 11:54 02/18/21 11:54 Abnormal Lab Results - Last 24 Hours (Table) 02/18/21 02/18/21 02/18/21 Range/Units 11:23 11:54 11:54 WBC 14.7 H (3.8-10.6) k/uL Neutrophils # 10.6 H (1.3-7.7) k/uL Chloride 108 H (98-107) mmol/L Glucose 125 H (74-99) mg/dL POC Glucose (mg/dL) 122 H (75-99) mg/dL Diabetes panel 02/18/21 Range/Units 11:54 Sodium 141 (137-145) mmol/L Potassium 4.6 (3.5-5.1) mmol/L Chloride 108 H (98-107) mmol/L Carbon Dioxide 23 (22-30) mmol/L BUN 16 (7-17) mg/dL Creatinine 0.78 (0.52-1.04) mg/dL Glucose 125 H (74-99) mg/dL Calcium 9.5 (8.4-10.2) mg/dL AST 14 (14-36) U/L ALT 10 (4-34) U/L Alkaline Phosphatase 102 (38-126) U/L Total Protein 6.8 (6.3-8.2) g/dL Albumin 4.0 (3.5-5.0) g/dL Calcium panel 02/18/21 Range/Units 11:54 Calcium 9.5 (8.4-10.2) mg/dL Albumin 4.0 (3.5-5.0) g/dL Pituitary panel 02/18/21 Range/Units 11:54 Sodium 141 (137-145) mmol/L Potassium 4.6 (3.5-5.1) mmol/L Chloride 108 H (98-107) mmol/L Carbon Dioxide 23 (22-30) mmol/L BUN 16 (7-17) mg/dL Creatinine 0.78 (0.52-1.04) mg/dL Glucose 125 H (74-99) mg/dL Calcium 9.5 (8.4-10.2) mg/dL Adrenal panel 02/18/21 Range/Units 11:54 Sodium 141 (137-145) mmol/L Potassium 4.6 (3.5-5.1) mmol/L Chloride 108 H (98-107) mmol/L Carbon Dioxide 23 (22-30) mmol/L BUN 16 (7-17) mg/dL Creatinine 0.78 (0.52-1.04) mg/dL Glucose 125 H (74-99) mg/dL Calcium 9.5 (8.4-10.2) mg/dL Total Bilirubin 0.4 (0.2-1.3) mg/dL AST 14 (14-36) U/L ALT 10 (4-34) U/L Alkaline Phosphatase 102 (38-126) U/L Total Protein 6.8 (6.3-8.2) g/dL Albumin 4.0 (3.5-5.0) g/dL Assessment and Plan Assessment: Right axillary hidradenitis with abscess. Patient's abscess was cultured. She placed on IV antibiotics. We will follow with you.
[2021-02-18] MEDS ORDERED: ACETAMINOPHEN TAB 325 MG TAB PO PRN (12:55)
[2021-02-18] MEDS ORDERED: HYDROcodone/APAP 5-325MG 1 EACH TAB PO PRN (12:55)
[2021-02-18] MEDS ORDERED: MELATONIN 3 MG TABLET PO PRN (12:55)
[2021-02-18] MEDS ORDERED: ONDANSETRON 4 MG/2 ML VIAL IVP PRN (12:55)
[2021-02-18] MEDS ORDERED: VANCOMYCIN 2,000 MG in SODIUM CHLORIDE 0.9% 500 ML 500 ML IVPB ONE (13:00)
--- NOTE | 2021-02-18 14:00 | P.HPIM ---
<John Jimenez - Last Filed: 02/18/21 13:08> History of Present Illness H&P Date: 02/18/21 History of presenting illness: Patient is a 45-year-old female with a past medical history of hidradenitis suppurativa, hyperlipidemia, depression, and insulin-dependent diabetes mellitus type II. Patient presented to the hospital for a chief complaint of recurrent abscess to her right axilla. Patient states that she has had this abscess drained twice in the past week once at [facility] on 02/14/21 and again in our ED on 02/17/21, but reports despite I&D upon returning home she experienced increased pain, swelling, and a high fever of 102F. Patient reports she has been taking Tylenol and Motrin, but pain remains severe, her fevers continue, and her blood glucose levels have been extremely elevated greater than 400. Patient was seen and fully evaluated in the emergency departmentand found to have leukocytosis with a WBC count of 14.7. A surgical consultation was completed in the e mergency department by Dr. Kaye, however abscess spontaneously ruptured without intervention. Patient does have white thick pus drainage from abscess site. A culture was obtained and sent to lab for analysis. Patient being admitted under our services with consultation to general surgery and infectious disease. Review of systems: Pertinent positives and negatives as discussed in HPI, a complete review of systems was performed and all other systems are negative. Physical exam: Vital signs reviewed and stable. General: non toxic, no distress, appears at stated age Derm: warm, dry. Patient with abscess to right axilla with white thick pus drainage from abscess site. Head: atraumatic, normocephalic, symmetric Eyes: EOMI, no lid lag, anicteric sclera Mouth: no lip lesion, mucus membranes moist Cardiovascular: S1S2 normal with regular rate and rhythm. No murmurs, gallops, or rubs. Posterior tibial pulses present bilaterally. Cap refill less than 2 seconds. Lungs: CTA bilateral, no rhonchi, no rales, and no wheezes. No accessory muscle use Abdominal: soft, nontender to palpation, no guarding, no appreciable organomegaly Ext: no gross muscle atrophy, no edema, no contractures Neuro: CN II-XI grossly intact, no focal neuro deficits Psych: Alert, oriented, appropriate affect Plan of care: Hidradenitis suppurativa with abscess, failed outpatient treatment after recurrent I&D's and use of oral antibiotics Bactrim and clindamycin -IV antibiotics vancomycin -Gen. surgery following -Consult placed to infectious disease -Symptomatic/supportive care with pain management. Insulin-dependent diabetes mellitus type II -Continue daily fixed insulin dose NovoLog 10 units with meals and long acting Levemir 20 units nightly. Additionally we will place patient on glycemic protocol with NovoLog sliding scale. -Heart healthy carb consistent diet. -Hemoglobin A1c with a.m. labs. Hyperlipidemia -Continue daily medication management with rosuvastatin 10 mg nightly. CODE STATUS: Full code DVT prophylaxis: Lovenox Discussed with: Patient and RN Anticipated discharge date: 1-[address]: Home A total of 45 minutes was spent on the care of this complex patient more than 50% of the time was spent in counseling and care coordination. Past Medical History Past Medical History: Asthma, COPD, Diabetes Mellitus, Hyperlipidemia Additional Past Medical History / Comment(s): Recurrent abscesses, migraines, possible TIA-being tested for, History of Any Multi-Drug Resistant Organisms: None Reported Past Surgical History: Appendectomy, Section, Cholecystectomy, Tubal Ligation, Uterine Ablation Additional Past Surgical History / Comment(s): Incision and drainage, Past Anesthesia/Blood Transfusion Reactions: Postoperative Nausea & Vomiting (PONV) Past Psychological History: No Psychological Hx Reported Smoking Status: Current every day smoker Past Alcohol Use History: Occasional Past Drug Use History: Marijuana - Past Family History Mother Family Medical History: No Reported History Medications and Allergies Home Medications Medication Instructions Recorded Confirmed Type metFORMIN HCL ER [Glucophage Xr] 1,000 mg PO BID 08/13/18 02/18/21 History lisinopriL [Zestril] 2.5 mg PO DAILY 02/18/19 02/18/21 History Clindamycin HCl 300 mg PO TID 02/17/21 02/18/21 History FLUoxetine HCL [PROzac] 20 mg PO DAILY 02/17/21 02/18/21 History Insulin Glargine,Hum.rec.anlog 20 unit SQ BID 02/17/21 02/18/21 History [Lantus Solostar] Insulin Lispro [humaLOG Kwikpen] 10 unit SQ AC-TID 02/17/21 02/18/21 History Rosuvastatin [Crestor] 10 mg PO HS 02/17/21 02/18/21 History Varenicline [Chantix Continuing 1 mg PO BID 02/17/21 02/18/21 History Pack] Sulfamethox-Tmp 800-160Mg [Bactrim 1 tab PO Q12HR 02/18/21 02/18/21 History Ds] Allergies Allergy/AdvReac Type Severity Reaction Status Date / Time amoxicillin [Amoxicillin] Allergy Anaphylaxis Verified 02/18/21 12:39 blueberry Allergy Anaphylaxis Verified 02/18/21 12:39 Penicillins Allergy Anaphylaxis Verified 02/18/21 12:39 atorvastatin calcium AdvReac Muscle Verified 02/18/21 12:39 [From Lipitor] Cramping Physical Exam Vitals: Vital Signs Temp Pulse Resp BP Pulse Ox 02/18/21 11:17 98.1 F 85 16 119/66 95 Intake and Output 02/17/21 02/18/21 02/18/21 22:59 06:59 14:59 Other: Weight 99.79 kg Results CBC & Chem 7: 02/18/21 11:54 02/18/21 11:54 Labs: Abnormal Lab Results - Last 24 Hours (Table) 02/18/21 02/18/21 02/18/21 Range/Units 11:23 11:54 11:54 WBC 14.7 H (3.8-10.6) k/uL Neutrophils # 10.6 H (1.3-7.7) k/uL Chloride 108 H (98-107) mmol/L Glucose 125 H (74-99) mg/dL POC Glucose (mg/dL) 122 H (75-99) mg/dL <Tricia Rhoades - Last Filed: 02/18/21 18:30> History of Present Illness Patient seen and examined independently. Patient was also seen by John Jimenez NP and case was discussed. I am in agreement with subjective, physical exam, assessment and plan as written above and amended below. General: non toxic, no distress, appears at stated age Derm: warm, dry Head: atraumatic, normocephalic, symmetric Cardiovascular: S1S2 reg, no murmur, positive posterior tibial pulse bilateral, Lungs: CTA bilateral, no rhonchi, no rales , no accessory muscle use EXT: purulent drainage right axilla Neuro: CN II-XI grossly intact, no focal neuro deficits Psych: Alert, oriented, appropriate affect Past Medical History - Past Family History Mother Family Medical History: No Reported History Additional Family Medical History / Comment(s): Mother of a brain aneurysm. Father Family Medical History: Coronary Artery Disease (CAD), Diabetes Mellitus, Hyperlipidemia Additional Family Medical History / Comment(s): Father had CABG. He is . Physical Exam Osteopathic Statement: *. No significant issues noted on an osteopathic structural exam other than those noted in the History and Physical/Consult. Vitals: Vital Signs Temp Pulse Pulse Resp BP BP Pulse Ox 02/18/21 15:15 18 02/18/21 15:13 98.2 F 83 18 109/74 96 02/18/21 14:27 78 18 107/64 98 02/18/21 11:17 98.1 F 85 16 119/66 95 Intake and Output 02/18/21 02/18/21 02/18/21 06:59 14:59 22:59 Intake Total 237 Balance 237 Intake: Oral 237 Other: Weight 99.79 kg Results CBC & Chem 7: 02/18/21 11:54 02/18/21 11:54 Labs: Abnormal Lab Results - Last 24 Hours (Table) 02/18/21 02/18/21 02/18/21 Range/Units 11:23 11:54 11:54 WBC 14.7 H (3.8-10.6) k/uL Neutrophils # 10.6 H (1.3-7.7) k/uL Chloride 108 H (98-107) mmol/L Glucose 125 H (74-99) mg/dL POC Glucose (mg/dL) 122 H (75-99) mg/dL 02/18/21 Range/Units 17:03 WBC (3.8-10.6) k/uL Neutrophils # (1.3-7.7) k/uL Chloride (98-107) mmol/L Glucose (74-99) mg/dL POC Glucose (mg/dL) 71 L (75-99) mg/dL
[2021-02-18] MEDS: NICOTINE 21MG/24HR PATCH TRANSDERM SCH (15:42)
--- NOTE | 2021-02-18 16:52 | P.CONS ---
History of Present Illness - Reason for Consult Consult date: 02/18/21 Right axilla abscess Requesting physician: John Jimenez - Chief Complaint Right axilla pain and swelling 1 week - History of Present Illness Patient is a 45-year-old female with multiple comorbidities including hidradenitis suppurativa, with a history of recurrent infection to the axillary area, patient presented to the hospital for evaluation of increasing pain swelling redness to the right axilla that has been going on for about a week patient mentioned this started as a boil about a week ago that has progressively increased in size and becoming more painful patient describing the pain to be burning and sharp with intensity of almost 10 out of 10, patient has been evaluated twice in the ER on 02/14/2021 as well as 02/17/2021 and did have a I&D of the area however the patient continued to have a problem with the pain and fever, patient on presentation hospital was afebrile she did have white count of 14.7, her local culture has been obtained and no blood culture were done patient has been started on vancomycin admitted to the hospital infectious disease was consulted for further management of antibiotic therapy, patient culture done on 01/30/2021 did grew predominantly anaerobes Review of Systems Positive point has been mentioned in the HPI rest of the systems are negative Past Medical History Past Medical History: Asthma, COPD, Diabetes Mellitus, Hyperlipidemia Additional Past Medical History / Comment(s): Recurrent abscesses, migraines, possible TIA-being tested for, History of Any Multi-Drug Resistant Organisms: None Reported Past Surgical History: Appendectomy, Section, Cholecystectomy, Tubal Ligation, Uterine Ablation Additional Past Surgical History / Comment(s): Incision and drainage, Past Anesthesia/Blood Transfusion Reactions: Postoperative Nausea & Vomiting (PONV) Past Psychological History: No Psychological Hx Reported Smoking Status: Current every day smoker Past Alcohol Use History: Occasional Past Drug Use History: Marijuana - Past Family History Mother Family Medical History: No Reported History Father Family Medical History: Coronary Artery Disease (CAD), Diabetes Mellitus, Hyperlipidemia Additional Family Medical History / Comment(s): Father had CABG. He is . Medications and Allergies Home Medications Medication Instructions Recorded Confirmed Type metFORMIN HCL ER [Glucophage Xr] 1,000 mg PO BID 08/13/18 02/18/21 History lisinopriL [Zestril] 2.5 mg PO DAILY 02/18/19 02/18/21 History Clindamycin HCl 300 mg PO TID 02/17/21 02/18/21 History FLUoxetine HCL [PROzac] 20 mg PO DAILY 02/17/21 02/18/21 History Insulin Glargine,Hum.rec.anlog 20 unit SQ BID 02/17/21 02/18/21 History [Lantus Solostar] Insulin Lispro [humaLOG Kwikpen] 10 unit SQ AC-TID 02/17/21 02/18/21 History Rosuvastatin [Crestor] 10 mg PO HS 02/17/21 02/18/21 History Varenicline [Chantix Continuing 1 mg PO BID 02/17/21 02/18/21 History Pack] Sulfamethox-Tmp 800-160Mg [Bactrim 1 tab PO Q12HR 02/18/21 02/18/21 History Ds] Allergies Allergy/AdvReac Type Severity Reaction Status Date / Time amoxicillin [Amoxicillin] Allergy Anaphylaxis Verified 02/18/21 12:39 blueberry Allergy Anaphylaxis Verified 02/18/21 12:39 Penicillins Allergy Anaphylaxis Verified 02/18/21 12:39 atorvastatin calcium AdvReac Muscle Verified 02/18/21 12:39 [From Lipitor] Cramping Physical Exam Vitals: Vital Signs Temp Pulse Resp BP Pulse Ox 02/18/21 11:17 98.1 F 85 16 119/66 95 Intake and Output 02/17/21 02/18/21 02/18/21 22:59 06:59 14:59 Other: Weight 99.79 kg GENERAL DESCRIPTION: Middle-aged female lying in bed, no distress. No tachypnea or accessory muscle of respiration use. HEENT: Shows Pallor , no scleral icterus. Oral mucous membrane is dry. No pharyngeal erythema or thrush NECK: Trachea central, no thyromegaly. LUNGS: Unlabored breathing. Clear to auscultation anteriorly. No wheeze or crackle. HEART: S1, S2, regular rate and rhythm. No loud murmur ABDOMEN: Soft, no tenderness , guarding or rigidity, no organomegaly EXTREMITIES: No edema of feet. SKIN: No rash, no masses palpable. Right axillary area did have a swelling redness tender to touch and some purulent drainage NEUROLOGICAL: The patient is awake, alert, oriented x3, mood and affect normal. Results CBC & Chem 7: 02/18/21 11:54 02/18/21 11:54 Labs: Abnormal Lab Results - Last 24 Hours (Table) 02/18/21 02/18/21 02/18/21 Range/Units 11:23 11:54 11:54 WBC 14.7 H (3.8-10.6) k/uL Neutrophils # 10.6 H (1.3-7.7) k/uL Chloride 108 H (98-107) mmol/L Glucose 125 H (74-99) mg/dL POC Glucose (mg/dL) 122 H (75-99) mg/dL Assessment and Plan Assessment: 1- patient with a history of recurrent infection of the right axillary area and this patient did have a history of hidradenitis supparata , in this patient status post I&D unfortunately no cultures that I can see in the system except the culture done on 418 did grew predominantly anaerobes, surgery has seen the patient with no recommendation for further drainage at this point 2-penicillin ALLERGY that would limit the number of antibiotic safety use (1) Abscess of axilla, right Current Visit: Yes Status: Acute Code(s): L02.411 - CUTANEOUS ABSCESS OF RIGHT AXILLA SNOMED Code(s): 81918017 Plan: 1- Vancomycin pharmacy to dose target trough of 15 while watching kidney function and Vanco trough closely 2-we will add Flagyl 500 mg by mouth every 8 hours We will follow on clinical condition and cultures to further adjust medication if needed Thank you for this consultation will follow this patient with you
[2021-02-18 17:04] LABS: Glucose,Whole Blood 71 mg/dL (75-99)
[2021-02-18] MEDS: INSULIN ASPART (NovoLOG) 100 UNIT/ML VIAL SQ SCH ×3 (17:37→21:43)
[2021-02-18 20:30] LABS: Glucose,Whole Blood 189 mg/dL (75-99)
[2021-02-18] MEDS ORDERED: PATIENT'S OWN (Rosuvastatin 10 MG Tablet) PO SCH (21:00)
[2021-02-18] MEDS: INSULIN DETEMIR (LEVEMIR) 100 UNIT/ML SYR SQ SCH (21:42)
[2021-02-18] MEDS: VANCOMYCIN 1,750 MG in SODIUM CHLORIDE 0.9% 500 ML 500 ML IVPB SCH (23:54)
[2021-02-19 02:33] LABS: Glucose,Whole Blood 110 mg/dL (75-99)
[2021-02-19 07:23] LABS: Glucose,Whole Blood 76 mg/dL (75-99)
[2021-02-19] MEDS: INSULIN ASPART (NovoLOG) 100 UNIT/ML VIAL SQ SCH ×2 (07:50→07:51)
[2021-02-19] MEDS: INSULIN DETEMIR (LEVEMIR) 100 UNIT/ML SYR SQ SCH (07:51)
[2021-02-19] MEDS: SODIUM CHLORIDE 0.9% 1,000 ML IV SCH (07:53)
[2021-02-19] MEDS ORDERED: FLUoxetine HCL 20 MG CAP PO SCH (09:00)
[2021-02-19 09:25] LABS: HCT 41.7 % (37.2-46.3); HGB 13.3 g/dL (12.0-15.0); MCH 28.7 pg (27.0-32.0); MCHC 31.9 g/dL (32.0-37.0); MCV 89.9 fL (80.0-97.0); Mean Platelet Volume 10.4 fL (9.5-12.2); Platelet Count 264 X 10*3/uL (140-440); RBC 4.64 X 10*6/uL (4.10-5.20); RDW 14.1 % (11.5-14.5); WBC 10.67 X 10*3/uL (4.50-10.00)
[2021-02-19 09:26] VITALS: BP 116/76; PULSE 81; RESP 16; TEMP 98
[2021-02-19 09:33] LABS: African American GFR (CKD) 128.5 (60.0-200.0); BUN/Creat Ratio 18.33 Ratio (12.00-20.00); Calcium 8.6 mg/dL (8.7-10.3); Magnesium 2.1 mg/dL (1.5-2.4); Non-African American GFR(CKD) 110.9 (60.0-200.0)
[2021-02-19] MEDS: NICOTINE 21MG/24HR PATCH TRANSDERM SCH (09:34)
[2021-02-19] MEDS: ENOXAPARIN 40 MG/0.4 ML SYRINGE SQ SCH ×2 (09:35→09:38)
[2021-02-19] MEDS: VANCOMYCIN 1,750 MG in SODIUM CHLORIDE 0.9% 500 ML 500 ML IVPB SCH (11:20)
--- NOTE | 2021-02-19 12:44 | PN ---
PROGRESS NOTE DATE OF SERVICE: 02/19/2021. REASON FOR FOLLOW UP: Right axillary abscess/cellulitis. INTERVAL HISTORY: The patient is seen on rounds this morning. The patient has been afebrile. The patient is feeling better and has been insisting on going home. Overall pain and discomfort to the right axilla has decreased. No chest pain, shortness of breath or cough. No abdominal pain or diarrhea. PHYSICAL EXAMINATION: Blood pressure 116/76, pulse of 81, temperature 98. She is 96% on room air. General description is a middle-aged female lying in bed in no distress. Respiratory system: Unlabored breathing, clear to auscultation. HEART: S1, S2. Regular rate and rhythm. ABDOMEN: Soft. No tenderness. Right axilla swelling and redness has decreased. LABS: Hemoglobin 13.1, white count 10.67. Cultures currently pending. DIAGNOSTIC IMPRESSION AND PLAN: Patient with right axillary abscess cellulitis in this patient who did have underlying hidradenitis suppurative. Patient is covered on vancomycin and Flagyl to continue while waiting for the culture to finalize and continue supportive care. MMODL / IJN: [id number] /
--- NOTE | 2021-02-19 13:23 | P.PN ---
Subjective Progress Note Date: 02/19/21 Hospital course: Patient is a 45-year-old female with a past medical history of hidradenitis suppurativa, hyperlipidemia, depression, and insulin-dependent diabetes mellitus type II. Patient presented to the hospital for a chief complaint of recurrent abscess to her right axilla. Patient states that she has had this abscess drained twice in the past week once at [facility] on 02/14/21 and again in our ED on 02/17/21, but reports despite I&D upon returning home she experienced increased pain, swelling, and a high fever of 102F. Patient reports she has been taking Tylenol and Motrin, but pain remains severe, her fevers continue, and her blood glucose levels have been extremely elevated greater than 400. Patient was seen and fully evaluated in the emergency departmentand found to have leukocytosis with a WBC count of 14.7. A surgical consultation was completed in the emergency department by Dr. Kaye, however abscess spontaneously ruptured without intervention. Patient does have white thick pus drainage from abscess site. A culture was obtained and sent to lab for analysis. Patient was admitted under our services with consultation to general surgery and infectious disease. Physical exam: Patient seen and fully evaluated at the bedside this morning. Patient appeared very anxious and frustrated. Upon assessment abscess of right axilla appeared enlarged, no longer draining and was very firm to touch with moderate induration and scar tissue surrounding. Patient requesting to be discharged at this time stating that she wants to go home and spend Mother's Day with her family. Patient informed that abscess may possibly need I&D and recommended patient received dose of antibiotics and await for general surgery to evaluate further. Patient denied having any other complaints at this time including headache, lightheadedness, dizziness, cough, congestion, chest pain, palpitations, shortness of breath, abdominal pain, nausea, vomiting, or experiencing any numbness/tingling/weakness in extremities. Vital signs reviewed and stable. General: non toxic, no distress, appears at stated age Derm: warm, dry. Patient with abscess to right axilla with white thick pus drainage from abscess site. Head: atraumatic, normocephalic, symmetric Eyes: EOMI, no lid lag, anicteric sclera Mouth: no lip lesion, mucus membranes moist Cardiovascular: S1S2 normal with regular rate and rhythm. No murmurs, gallops, or rubs. Posterior tibial pulses present bilaterally. Cap refill less than 2 seconds. Lungs: CTA bilateral, no rhonchi, no rales, and no wheezes. No accessory muscle use Abdominal: soft, nontender to palpation, no guarding, no appreciable organomegaly Ext: no gross muscle atrophy, no edema, no contractures Neuro: CN II-XI grossly intact, no focal neuro deficits Psych: Alert, oriented, appropriate affect Plan of care: Hidradenitis suppurativa with abscess, failed outpatient treatment after recurrent I&D's and use of oral antibiotics Bactrim and clindamycin -IV antibiotics vancomycin -Gen. surgery following -Consult placed to infectious disease -Symptomatic/supportive care with pain management. Insulin-dependent diabetes mellitus type II -Continue daily fixed insulin dose NovoLog 10 units with meals and long acting Levemir 20 units nightly. Additionally we will place patient on glycemic protocol with NovoLog sliding scale. -Heart healthy carb consistent diet. -Hemoglobin A1c with a.m. labs. Hyperlipidemia -Continue daily medication management with rosuvastatin 10 mg nightly. CODE STATUS: Full code DVT prophylaxis: Lovenox Discussed with: Patient and RN Anticipated discharge date: Possibly tomorrow, pending further evaluation by general surgery. Anticipated discharge place: Home A total of 45 minutes was spent on the care of this complex patient more than 50% of the time was spent in counseling and care coordination. Objective - Vital Signs Vital signs: Vital Signs Temp 98 F 02/19/21 07:00 Pulse 81 02/19/21 08:00 Resp 16 02/19/21 08:00 BP 116/76 02/19/21 07:00 Pulse Ox 96 02/19/21 07:00 Intake & Output 02/18/21 02/19/21 02/19/21 18:59 06:59 18:59 Intake Total 237 240 Output Total 240 Balance 237 0 Weight 99.79 kg Intake: Oral 237 240 Output: Urine 240 Other: Voiding Method Toilet # Voids 1 - Labs CBC & Chem 7: 02/19/21 06:09 02/19/21 06:09 Labs: Abnormal Lab Results - Last 24 Hours (Table) 02/18/21 02/18/21 02/19/21 Range/Units 17:03 20:29 02:32 WBC (4.50-10.00) X 10*3/uL MCHC (32.0-37.0) g/dL POC Glucose (mg/dL) 71 L 189 H 110 H (75-99) mg/dL Calcium (8.7-10.3) mg/dL 02/19/21 02/19/21 Range/Units 06:09 06:09 WBC 10.67 H (4.50-10.00) X 10*3/uL MCHC 31.9 L (32.0-37.0) g/dL POC Glucose (mg/dL) (75-99) mg/dL Calcium 8.6 L (8.7-10.3) mg/dL Microbiology - Last 24 Hours (Table) 02/18/21 13:30 Gram Stain - Preliminary Axilla - Right Wound Culture - Preliminary
--- NOTE | 2021-02-19 13:45 | P.DS ---
Providers Date of admission: 02/18/21 12:16 Expected date of discharge: 02/19/21 Attending physician: Tricia Rhoades DO Consults: 02/18/21 12:30 Consult Physician Routine Consulting Provider: Sukhdeep Kaye Consult Reason/Comments: axilla abscess Do you want consulting provider notified?: Already Contacted Consult Physician Routine Consulting Provider: Michelle Lloyd Consult Reason/Comments: axilla abscess Do you want consulting provider notified?: Yes Primary care physician: Vaibhav Ponce Assessment: PATIENT LEFT AGAINST MEDICAL ADVICE, THIS IS A REVIEW OF HOSPITALIZATION Hidradenitis suppurativa with abscess, failed outpatient treatment after recurrent I&D's and use of oral antibiotics Bactrim and clindamycin Insulin-dependent diabetes mellitus type II Hyperlipidemia Hospital Course: Patient is a 45-year-old female with a past medical history of hidradenitis suppurativa, hyperlipidemia, depression, and insulin-dependent diabetes mellitus type II. Patient presented to the hospital for a chief complaint of recurrent abscess to her right axilla. Patient states that she has had this abscess drained twice in the past week once at [facility] on 02/14/21 and again in our ED on 02/17/21, but reports despite I&D upon returning home she experienced increased pain, swelling, and a high fever of 102F. Patient reports she has been taking Tylenol and Motrin, but pain remains severe, her fevers continue, and her blood glucose levels have been extremely elevated greater than 400. Patient was seen and fully evaluated in the emergency departmentand found to have leukocytosis with a WBC count of 14.7. A surgical consultation was completed in the emergency department by Dr. Kaye, however abscess spontaneously ruptured without intervention. Patient does have white thick pus drainage from abscess site. A culture was obtained and sent to lab for analysis. Patient was admitted under our services with consultation to general surgery and infectious disease. Patient received IV antibiotics vancomycin and Flagyl. She was seen and evaluated by general surgery and infectious disease. Received a page at 11:37 AM with reports the patient left AGAINST MEDICAL ADVICE. Patient Condition at Discharge: Undetermined Plan - Discharge Summary Discharge Rx Participant: No New Discharge Prescriptions: No Action metFORMIN HCL ER [Glucophage Xr] 1,000 mg PO BID lisinopriL [Zestril] 2.5 mg PO DAILY Clindamycin HCl 300 mg PO TID FLUoxetine HCL [PROzac] 20 mg PO DAILY Insulin Glargine,Hum.rec.anlog [Lantus Solostar] 20 unit SQ BID Insulin Lispro [humaLOG Kwikpen] 10 unit SQ AC-TID Rosuvastatin [Crestor] 10 mg PO HS Varenicline [Chantix Continuing Pack] 1 mg PO BID Sulfamethox-Tmp 800-160Mg [Bactrim Ds] 1 tab PO Q12HR Discharge Medication List metFORMIN HCL ER [Glucophage Xr] 1,000 mg PO BID 08/13/18 [History] lisinopriL [Zestril] 2.5 mg PO DAILY 02/18/19 [History] Clindamycin HCl 300 mg PO TID 02/17/21 [History] FLUoxetine HCL [PROzac] 20 mg PO DAILY 02/17/21 [History] Insulin Glargine,Hum.rec.anlog [Lantus Solostar] 20 unit SQ BID 02/17/21 [History] Insulin Lispro [humaLOG Kwikpen] 10 unit SQ AC-TID 02/17/21 [History] Rosuvastatin [Crestor] 10 mg PO HS 02/17/21 [History] Varenicline [Chantix Continuing Pack] 1 mg PO BID 02/17/21 [History] Sulfamethox-Tmp 800-160Mg [Bactrim Ds] 1 tab PO Q12HR 02/18/21 [History] Follow up Appointment(s)/Referral(s): Vaibhav Ponce MD [Primary Care Provider] - 1-2 days Discharge Disposition: Left Against Medical Advice
[2021-02-19 15:38] LABS: Hemoglobin A1C 8.9 % (4.0-6.0)
== END 2021-02-19 11:28 | disposition left against medical advice (07) ==
LOC: EC 11:07 → 6NMEDSUR 12:16
PROVIDERS: ADMIT Internal Medicine; ATTEND Internal Medicine
DX: L73.2 Hidradenitis suppurativa (principal); L02.411 Cutaneous abscess of right axilla; Z53.29 Procedure and treatment not carried out because of patient's decision for other reasons; E11.9 Type 2 diabetes mellitus without complications; E78.5 Hyperlipidemia, unspecified; J44.9 Chronic obstructive pulmonary disease, unspecified; F32.9 Major depressive disorder, single episode, unspecified; F17.200 Nicotine dependence, unspecified, uncomplicated; Z20.822 Contact with and (suspected) exposure to COVID-19; Z79.4 Long term (current) use of insulin; Z79.899 Other long term (current) drug therapy; Z91.018 Allergy to other foods; Z88.8 Allergy status to other drugs, medicaments and biological substances; Z88.0 Allergy status to penicillin; Z90.49 Acquired absence of other specified parts of digestive tract; Z98.891 History of uterine scar from previous surgery; Z98.51 Tubal ligation status; Z86.69 Personal history of other diseases of the nervous system and sense organs; Z86.59 Personal history of other mental and behavioral disorders; Z83.3 Family history of diabetes mellitus; Z82.49 Family history of ischemic heart disease and other diseases of the circulatory system; Z83.42 Family history of familial hypercholesterolemia
CPT/HCPCS: 96366 ×2; 96367; 96376; 96365; 96375; 99285; 36415; 80053; 80048; 83605; 83735; 85025; 85027; 87070; 87205; 83036; 87636; G0378 ×2; S4990 ×2; J3370 ×2; J1170 ×2

== ENCOUNTER → 2021-04-12 | Outpatient (CLI) | payer BC ==
[2021-04-12 17:28] LABS: African American GFR (CKD) >90 (>60 ml/min/1.73 sqM); Blood Urea Nitrogen 16 mg/dL (7-17); Non-African American GFR(CKD) >90 (>60 ml/min/1.73 sqM)
--- NOTE | 2021-04-12 19:02 | CT ---
EXAMINATION TYPE: CT angio head neck DATE OF EXAM: 04/12/2021 HISTORY: Abnormal CT brain. Right arm and leg numbness. COMPARISON: Same-day CT. CT DLP: 388.1 mGycm. Automated Exposure Control for Dose Reduction was Utilized. TECHNIQUE: CTA scan of the head and neck is performed with IV Contrast, patient injected with 65 mL of Isovue 370, axial images are obtained, coronal and sagittal reformatted images are reviewed. Three -D reconstructed images are created on an independent workstation and reviewed. FINDINGS: There is normal three-vessel branching of the aorta. There is no evidence of high-grade stenosis, dis section or aneurysm seen in the bilateral common carotid, cervical internal carotid and vertebral art eries. There is ectasia of the left MCA M1 segment at junction of anterior branching vessel. Otherwise no ev idence of high-grade stenosis, dissection or aneurysm in the intracranial internal carotid arteries, anterior, middle and posterior cerebral arteries as well as in the imaged vertebral and basilar arter ies. The communicating arteries are unremarkable. IMPRESSION: Ectasia of the left MCA M1 segment. Otherwise no acute abnormality of the CTA head/neck.
== END | disposition home or self-care (01) ==
LOC: RADCTMAIN 16:35
PROVIDERS: ATTEND Nurse Practitioner Adult Health
DX: I66.09 Occlusion and stenosis of unspecified middle cerebral artery (principal)
CPT/HCPCS: 82565; 84520; 70496; 70498; 36415; Q9967

== ENCOUNTER → 2021-04-12 | Outpatient (CLI) | payer BC ==
--- NOTE | 2021-04-12 14:50 | CT ---
EXAMINATION TYPE: CT brain wo con DATE OF EXAM: 04/12/2021 COMPARISON: 08/13/2018 HISTORY: right side arm and leg numbness CT DLP: 1034 mGycm. Automated Exposure Control for Dose Reduction was Utilized. TECHNIQUE: CT scan of the head is performed without contrast. FINDINGS: There is no acute intracranial hemorrhage, mass effect, or midline shift identified. The ventricles and sulci are within normal limits in size. The globes are intact and the visualized sin uses are clear. Cerebellar tonsils low-lying position at the level of the foramen magnum. Sella turcica has a normal appearance. 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 Mild prominence of the left MCA. IMPRESSION: 1. No acute intracranial hemorrhage, mass effect, or midline shift is seen. There is prominence of th e left MCA recommend MRI of brain, MRA nap[place] of [place]. Report called to referring clinician [id number], .
== END | disposition home or self-care (01) ==
LOC: RADCTMAIN 13:48
PROVIDERS: ATTEND Family Medicine
DX: H53.8 Other visual disturbances (principal)
CPT/HCPCS: 70450

== ENCOUNTER 2021-08-24 07:19 | Emergency (ER) | payer BC ==
[2021-08-24 07:24] VITALS: BP 138/79; PULSE 106; RESP 18; TEMP 97.5
[2021-08-24] MEDS ORDERED: FLUCONAZOLE 150 MG TAB PO STA (07:54)
--- NOTE | 2021-08-24 08:00 | ED ---
General Adult HPI - General Chief complaint: Urogenital Stated complaint: Female Time Seen by Provider: 08/24/21 07:27 Source: patient Mode of arrival: ambulatory Limitations: no limitations - History of Present Illness Initial comments: Dictation was produced using [employer] dictation software. please excuse any grammatical, word or spelling errors. Chief Complaint: 45-year-old female presents to the emergency department for vaginal burning. History of Present Illness: 45-year-old female with past medical history of vaginal candidiasis, bilateral tubal ligation. She presents to emergency department for several days of vaginal burning. Patient states she denies any discharge. No abdominal pain or nausea. Patient is in a monogamous relationship with her . She is sexually active. Denies any history of genital herpes. She tried some Vagisil with no improvement. The ROS documented in this emergency department record has been reviewed and confirmed by me. Those systems with pertinent positive or negative responses have been documented in the HPI. All other systems are other negative and/or noncontributory. PHYSICAL EXAM: General Impression: Alert and oriented x3, not in acute distress HEENT: Normocephalic atraumatic, extra-ocular movements intact, pupils equal and reactive to light bilaterally, mucous membranes moist. Cardiovascular: Heart regular rate and rhythm Chest: Able to complete full sentences, no retractions, no tachypnea Motor: no focal deficits noted Neurological: CN II-XII grossly intact, no focal motor or sensory deficits noted Skin: Intact with no visualized rashes Psych: Normal affect and mood Gen.: Pelvic exam shows erythematous red vaginal mucosa, pelvic exam limited by body habitus, there are some diffuse shallow-based ulcers that are approximately 3-4 mm in diameter ED course: 45-year-old feel presents with vaginal pain. Signs upon arrival are within acceptable limits. Pelvic exam concerning for yeast vaginitis however her symptoms could be secondary to but less likely to be genital herpes infection. She does not have any risk factors for herpetic lesions. She is in a monogamous relationship. She does not feel concerned about sexual transmitted disease. Furthermore, she has a history of yeast vaginitis. Patient given 1 dose of Diflucan. She is young prescription for by mouth analgesics. She is advised to follow-up with her regular doctor or predatory game hunter to be tested for Gen. herpes if her symptoms do not improve. Patient is agreeable to plan. - Related Data Home Medications Medication Instructions Recorded Confirmed metFORMIN HCL ER [Glucophage Xr] 1,000 mg PO BID 08/13/18 02/18/21 lisinopriL [Zestril] 2.5 mg PO DAILY 02/18/19 02/18/21 Clindamycin HCl 300 mg PO TID 02/17/21 02/18/21 FLUoxetine HCL [PROzac] 20 mg PO DAILY 02/17/21 02/18/21 Insulin Glargine,Hum.rec.anlog 20 unit SQ BID 02/17/21 02/18/21 [Lantus Solostar] Insulin Lispro [humaLOG Kwikpen] 10 unit SQ AC-TID 02/17/21 02/18/21 Rosuvastatin [Crestor] 10 mg PO HS 02/17/21 02/18/21 Varenicline [Chantix Continuing 1 mg PO BID 02/17/21 02/18/21 Pack] Sulfamethox-Tmp 800-160Mg [Bactrim 1 tab PO Q12HR 02/18/21 02/18/21 Ds] Previous Rx's Medication Instructions Recorded HYDROcodone/APAP 5-325MG [[place] 1 tab PO Q6HR PRN 3 Days #12 tab 08/24/21 5-325] Allergies Allergy/AdvReac Type Severity Reaction Status Date / Time amoxicillin [Amoxicillin] Allergy Anaphylaxis Verified 08/24/21 07:24 blueberry Allergy Anaphylaxis Verified 08/24/21 07:24 Penicillins Allergy Anaphylaxis Verified 08/24/21 07:24 atorvastatin calcium AdvReac Muscle Verified 08/24/21 07:24 [From Lipitor] Cramping Review of Systems ROS Statement: Those systems with pertinent positive or pertinent negative responses have been documented in the HPI. ROS Other: All systems not noted in ROS Statement are negative. Past Medical History Past Medical History: Asthma, COPD, Diabetes Mellitus, Hyperlipidemia Additional Past Medical History / Comment(s): Recurrent abscesses, migraines, possible TIA-being tested for, History of Any Multi-Drug Resistant Organisms: None Reported Past Surgical History: Appendectomy, Section, Cholecystectomy, Tubal Ligation, Uterine Ablation Additional Past Surgical History / Comment(s): Incision and drainage, Past Anesthesia/Blood Transfusion Reactions: Postoperative Nausea & Vomiting (PONV) Past Psychological History: No Psychological Hx Reported Smoking Status: Current every day smoker Past Alcohol Use History: Occasional Past Drug Use History: Marijuana - Past Family History Mother Family Medical History: No Reported History Additional Family Medical History / Comment(s): Mother of a brain aneurysm. Father Family Medical History: Coronary Artery Disease (CAD), Diabetes Mellitus, Hyperlipidemia Additional Family Medical History / Comment(s): Father had CABG. He is . General Exam Limitations: no limitations Course Vital Signs 08/24/21 07:19 Temperature 97.5 F L Pulse Rate 106 H Respiratory 18 Rate Blood Pressure 138/79 O2 Sat by Pulse 99 Oximetry Disposition Clinical Impression: Vaginal pain Disposition: HOME SELF-CARE Condition: Fair Instructions (If sedation given, give patient instructions): Vaginitis (ED) Prescriptions: HYDROcodone/APAP 5-325MG [[place] 5-325] 1 tab PO Q6HR PRN 3 Days #12 tab PRN Reason: Severe Pain Is patient prescribed a controlled substance at d/c from ED?: Yes If prescribed controlled substance>3 days was MAPS reviewed?: Prescribed <3 Days Referrals: Vaibhav Ponce MD [Primary Care Provider] - 1-2 days
[2021-08-24 08:42] LABS: Amorphous Sediment,Urine Rare /hpf; Appearance,Urine Cloudy (Clear); Bacteria,Urine Rare /hpf; Bilirubin,Urine Negative (Negative); Blood,Urine Trace (Negative); Color,Urine Yellow; Glucose,Urine (UA) 4+ (Negative); Ketones,Urine Negative (Negative); Leukocyte Esterase,Urine Small (Negative); Mucus,Urine Rare /hpf; Nitrite,Urine Negative (Negative); Protein,Urine 1+ (Negative); RBC,Urine 37 /hpf (0-5); Specific Gravity,Urine 1.027 (1.001-1.035); Squamous Epithelial Cell,Urine 2 /hpf (0-4); Urobilinogen,Urine <2.0 mg/dL (<2.0); WBC,Urine 26 /hpf (0-5)
== END 2021-08-24 08:24 | disposition home or self-care (01) ==
LOC: EC 07:19
DX: R10.2 Pelvic and perineal pain (principal); J44.9 Chronic obstructive pulmonary disease, unspecified; E78.5 Hyperlipidemia, unspecified; E11.9 Type 2 diabetes mellitus without complications; F17.200 Nicotine dependence, unspecified, uncomplicated; Z79.899 Other long term (current) drug therapy; Z79.4 Long term (current) use of insulin; Z88.0 Allergy status to penicillin; Z88.8 Allergy status to other drugs, medicaments and biological substances; Z91.018 Allergy to other foods
CPT/HCPCS: 81001; 81025; 87086; 99283

== ENCOUNTER → 2022-11-13 | Outpatient (CLI) | payer OTHER ==
--- NOTE | 2022-11-13 14:53 | XR ---
EXAMINATION TYPE: XR forearm RT DATE OF EXAM: 11/13/2022 2:50 PM INDICATION: Patient age:Female; 47 years old; Reason for study: S30.0XXA slipped on ice injury; [facility]. COMPARISON: Right wrist radiograph 02/18/2019. TECHNIQUE: The right forearm was examined in AP and lateral projections. FINDINGS: No acute osseous pathology, soft tissue swelling or joint dislocations are seen. IMPRESSION: No evidence of acute fracture.
--- NOTE | 2022-11-13 14:55 | XR ---
EXAMINATION TYPE: XR pelvis AP view, XR sacrum coccyx DATE OF EXAM: 11/13/2022 2:50 PM INDICATION: Patient age:Female; 47 years old; Reason for study: S30.0XXA injury slip and fall on ice; [facility]. COMPARISON: None TECHNIQUE: The pelvis was examined in a single projection. The sacrum/coccyx disclose evaluated in 3 projections. FINDINGS: There is no evidence of fracture or dislocation. There is no soft tissue abnormality. The SI joints are intact. No abnormal calcifications are present. Multilevel degenerative changes of the lower spine. Vascular sclerosis. IMPRESSION: No acute osseous pathology.
--- NOTE | 2022-11-13 14:56 | XR ---
EXAMINATION TYPE: XR thoracic spine complete DATE OF EXAM: 11/13/2022 2:50 PM INDICATION: Patient age:Female; 47 years old; Reason for study: S30.0XXA injury slip and fall on ice; [facility]. COMPARISON: Thoracic spine radiograph 08/13/2018 TECHNIQUE: 3 views of the thoracic spine in frontal, lateral, and swimmer's projections. FINDINGS: No evidence of acute fracture. There is no evidence of disk space narrowing or loss of vertebral bod y height. There is normal alignment of the thoracic vertebral bodies. Cholecystectomy clips in the ri t upper quadrant. IMPRESSION: No acute osseous pathology.
--- NOTE | 2022-11-13 14:57 | XR ---
EXAMINATION TYPE: XR ribs RT w pa chest xray DATE OF EXAM: 11/13/2022 2:50 PM INDICATION: Patient age:Female; 47 years old; Reason for study: S20.20XA injury slipped on ice; [facility]. COMPARISON: Chest radiograph 06/26/2022 TECHNIQUE: Frontal and oblique views of the ribs with additional PA chest The FINDINGS: The ribs have a normal appearance. No evidence of fracture. Overall, the lungs are clear. The cardiac silhouette is normal in size. The remaining osseous structures are intact. Cholecystect sheron clips in the right upper quadrant. IMPRESSION RIBS: No acute osseous pathology.
--- NOTE | 2022-11-13 14:57 | XR ---
EXAM TYPE: LUMBAR SPINE X RAY SERIES COMPARISON: 08/13/2018 HISTORY: Pain TECHNIQUE: 4 views are submitted. FINDINGS: Alignment is anatomic. The pedicles are intact. The transverse processes are intact. There is surg ical clips right upper quadrant. Facet arthropathy L3-4, L4-5 and L5-S1. Vascular calcifications are seen. Tiny anterior hypertrophic spurring of the vertebral segments. No compression deformities. IMPRESSION: 1. Severe facet arthropathy lower lumbar spine.
== END | disposition home or self-care (01) ==
LOC: RADXRMAIN 13:42
PROVIDERS: ATTEND Emergency Medicine
DX: S30.0XXA Contusion of lower back and pelvis, initial encounter (principal); S20.20XA Contusion of thorax, unspecified, initial encounter; S50.11XA Contusion of right forearm, initial encounter; M47.816 Spondylosis without myelopathy or radiculopathy, lumbar region
CPT/HCPCS: 72072; 72100; 72170; 72220

== ENCOUNTER → 2023-04-03 | Outpatient (CLI) | payer BC ==
--- NOTE | 2023-04-04 07:40 | MM ---
Reason for Exam: Screening (asymptomatic). Last mammogram was performed 2 year(s) and 4 month(s) ago. Patient History: Menarche at age 10. First Full-Term at age 17. Postmenopausal. Maternal aunt had breast cancer, age 60. Risk Values: Merry 5 year model risk: 0.7%. NCI Lifetime model risk: 7.6%. Prior Study Comparison: 10/17/2011 Screening Mammogram, [facility]. 12/07/2020 Bilateral Screening Mammogram, [facility]. Tissue Density: There are scattered fibroglandular densities. Findings: Analyzed By CAD. Some benign dermal calcifications are present posteriorly central and inferior right breast. There is no suspicious group of microcalcifications or new suspicious mass in either breast. Overall Assessment: Benign, BI-RAD 2 Management: Screening Mammogram of both breasts in 1 year. . Patient should continue monthly self-breast exams. A clinical breast exam by your physician is recommended on an annual basis. This exam should not preclude additional follow-up of suspicious palpable abnormalities. Note on Merry scores and lifetime risk: 1. A Merry score greater than 3% is considered moderate risk. If this is the case, consider specialist referral to assess eligibility for a risk reducing agent. 2. If overall lifetime risk for the development of breast cancer is 20% or higher, the patient may qualify for future screening with alternating mammogram and breast MRI. Electronically signed and approved by: Jefferson Thompson M.D. Radiologist
== END | disposition home or self-care (01) ==
LOC: RADMAMWWP 07:47
PROVIDERS: ATTEND Family Medicine
DX: Z12.31 Encounter for screening mammogram for malignant neoplasm of breast (principal); Z78.0 Asymptomatic menopausal state; Z80.3 Family history of malignant neoplasm of breast
CPT/HCPCS: 77063; 77067

== ENCOUNTER → 2024-01-18 | Outpatient (CLI) | payer OTHER ==
--- NOTE | 2024-01-18 12:34 | CT ---
EXAMINATION TYPE: CT abdomen pelvis wo con DATE OF EXAM: 01/18/2024 COMPARISON: None INDICATION: back pain DLP: 985 mGycm, Automated exposure control for dose reduction was used. CONTRAST: 0 mL of Isovue 300. Study performed without Oral Contrast TECHNIQUE: Axial images were obtained from above the diaphragm to the pubic rami in the axial plane a t 5 mm thick sections. Reconstructed images are reviewed on the computer in the coronal plane. FINDINGS: Limited CT sections are obtained the lung bases. The lung bases are clear. CT ABDOMEN: Liver: Normal Spleen: Normal Pancreas: Normal Adrenal glands: The adrenal glands are normal. Gallbladder: Surgically absent Kidneys: No masses are evident. No hydronephrosis is present. There may be an extrarenal pelvis on th e left. No cysts are present. No renal stones are evident Aorta: Vascular calcification is within the aorta. Inferior vena cava: Normal. CT PELVIS: Loops of bowel within the abdomen and pelvis are normal. The study is without oral contrast limit ing bowel evaluation Appendix: Not identified. No dilated tubular structure inflammatory changes evident. Urinary bladder: Normal. Genitourinary structures: Uterus is normal. Adnexa are unremarkable Osseous structures: No suspicious lytic or sclerotic lesions. There is some facet degenerative change present L5-S1. Vacuum disc phenomenon is present sacroiliac joints. IMPRESSION: 1. No suspicious CT abdomen pelvis findings. 2. No suspicious abnormality to account for patient's symptoms.
[2024-01-18 15:43] LABS: ALT 13 U/L (8-44); AST 9 U/L (13-35); Albumin 4.3 g/dL (3.8-4.9); Albumin/Globulin Ratio 1.79 Ratio (1.60-3.17); Alkaline Phosphatase 78 U/L (41-126); Blood Urea Nitrogen 14.4 mg/dL (9.0-27.0); Calcium 9.3 mg/dL (8.7-10.3); Carbon Dioxide 25.5 mmol/L (21.6-31.8); Chloride 105 mmol/L (96-109); Globulin 2.4 g/dL (1.6-3.3); Glucose 152 mg/dL (70-110); Potassium 4.7 mmol/L (3.5-5.5); Sodium 141 mmol/L (135-145); Total Bilirubin <0.2 mg/dL (0.3-1.2); Total Protein 6.7 g/dL (6.2-8.2)
[2024-01-18 15:55] LABS: Basophils # (A) 0.04 X 10*3/uL (0.00-0.10); Basophils % (A) 0.4 %; Eosinophils # (A) 0.26 X 10*3/uL (0.04-0.35); Eosinophils % (A) 2.3 %; HCT 48.1 % (37.2-46.3); HGB 15.6 g/dL (12.0-15.0); Lymphocytes % (A) 32.4 %; MCHC 32.4 g/dL (32.0-37.0); MCV 89.4 FL (80.0-97.0); Mean Platelet Volume 10.6 FL (9.5-12.2); Monocytes # (A) 0.47 X 10*3/uL (0.20-1.00); Monocytes % (A) 4.2 %; NRBC Per 100 WBC 0 X 10*3/uL (0.00-0.01); Neutrophils % (A) 60.3 %; Platelet Count 286 X 10*3/uL (140-440); RBC 5.38 X 10*6/uL (4.10-5.20); RDW 14.2 % (11.5-14.5); WBC 11.12 X 10*3/uL (4.50-10.00)
== END | disposition home or self-care (01) ==
LOC: RADCTMAIN 11:12
PROVIDERS: ATTEND Family Medicine
DX: R10.9 Unspecified abdominal pain (principal)
CPT/HCPCS: 74176; 80053; 85025

== ENCOUNTER 2024-07-28 08:32 | Emergency (ER) | payer OTHER ==
[2024-07-28 08:36] VITALS: BP 107/71; PULSE 101; RESP 20; TEMP 98
[2024-07-28] MEDS: LIDOCAINE 1% INJ 10MG/ML (20 ML MDV) SQ ONE (09:02)
--- NOTE | 2024-07-28 09:12 | ED ---
General Adult HPI - General Chief complaint: Skin/Abscess/Foreign Body Stated complaint: Skin Abscess Time Seen by Provider: 07/28/24 08:40 Source: patient, RN notes reviewed, old records reviewed Mode of arrival: ambulatory Limitations: no limitations - History of Present Illness Initial comments: 48 yo female presenting with pain and swelling in the right armpit. Patient has prior history of hidradenitis. She states has not had an issue in many years. She is a diabetic and a current smoker. No fever. No systemic symptoms. Patient has been taking Bactrim and attempting warm compresses without relief. - Related Data Home Medications Medication Instructions Recorded Confirmed metFORMIN HCL ER [Glucophage Xr] 1,000 mg PO BID 08/13/18 02/18/21 lisinopriL [Zestril] 2.5 mg PO DAILY 02/18/19 02/18/21 FLUoxetine HCL [PROzac] 20 mg PO DAILY 02/17/21 02/18/21 Insulin Glargine,Hum.rec.anlog 20 unit SQ BID 02/17/21 02/18/21 [Lantus Solostar] Insulin Lispro [humaLOG Kwikpen] 10 unit SQ AC-TID 02/17/21 02/18/21 Rosuvastatin [Crestor] 10 mg PO HS 02/17/21 02/18/21 Varenicline [Chantix Continuing 1 mg PO BID 02/17/21 02/18/21 Pack] clindamycin HCL [Clindamycin HCl] 300 mg PO TID 02/17/21 02/18/21 Sulfamethox-Tmp 800-160Mg [Bactrim 1 tab PO Q12HR 02/18/21 02/18/21 Ds] Previous Rx's Medication Instructions Recorded HYDROcodone/APAP 5-325MG [[place] 1 tab PO Q6HR PRN 3 Days #12 tab 08/24/21 5-325] Sulfamethox-Tmp 800-160Mg [Bactrim 1 tab PO Q12HR #20 tab 07/28/24 DS 800-160 mg] Allergies Allergy/AdvReac Type Severity Reaction Status Date / Time amoxicillin [Amoxicillin] Allergy Anaphylaxis Verified 07/28/24 08:36 blueberry Allergy Anaphylaxis Verified 07/28/24 08:36 Penicillins Allergy Anaphylaxis Verified 07/28/24 08:36 atorvastatin calcium AdvReac Muscle Verified 07/28/24 08:36 [From Lipitor] Cramping Review of Systems ROS Statement: Those systems with pertinent positive or pertinent negative responses have been documented in the HPI. ROS Other: All systems not noted in ROS Statement are negative. Past Medical History Past Medical History: Asthma, COPD, Diabetes Mellitus, Hyperlipidemia Additional Past Medical History / Comment(s): Recurrent abscesses, migraines, possible TIA-being tested for, History of Any Multi-Drug Resistant Organisms: None Reported Past Surgical History: Appendectomy, Section, Cholecystectomy, Tubal Ligation, Uterine Ablation Additional Past Surgical History / Comment(s): Incision and drainage, Past Anesthesia/Blood Transfusion Reactions: Postoperative Nausea & Vomiting (PONV) Past Psychological History: No Psychological Hx Reported Smoking Status: Current every day smoker Past Alcohol Use History: Occasional Past Drug Use History: Marijuana - Past Family History Mother Family Medical History: No Reported History Additional Family Medical History / Comment(s): Mother of a brain aneurysm. Father Family Medical History: Coronary Artery Disease (CAD), Diabetes Mellitus, Hyperlipidemia Additional Family Medical History / Comment(s): Father had CABG. He is . General Exam Limitations: no limitations General appearance: alert, in no apparent distress Head exam: Present: atraumatic, normocephalic Eye exam: Present: normal appearance, PERRL ENT exam: Present: normal exam Neck exam: Present: normal inspection. Absent: tenderness, meningismus Respiratory exam: Present: normal lung sounds bilaterally. Absent: respiratory distress, wheezes Cardiovascular Exam: Present: regular rate, normal rhythm GI/Abdominal exam: Present: soft. Absent: distended, tenderness Extremities exam: Present: other (There is area of induration 2 cm in the right axilla without fluctuance, no surrounding erythema.) Neurological exam: Present: alert, oriented X3 Psychiatric exam: Present: normal affect, normal mood Course Vital Signs 07/28/24 08:34 Temperature 98 F Pulse Rate 101 H Respiratory 20 Rate Blood Pressure 107/71 O2 Sat by Pulse 96 Oximetry Procedures - Incision & Drainage Consent Obtained: verbal consent Indication: Abscess Site: upper extremity Anesthetic Used: lidocaine 1% Amount (mLs): 3 I&D Cleaning Method: Chloroprep Sterile Field Used?: Yes Ultrasound used: No Needle Aspiration Performed?: Yes Irrigation Performed?: No I&D Drainage Obtained: Blood Culture Obtained?: No Patient Tolerated Procedure: well Medical Decision Making - Medical Decision Making Was pt. sent in by a medical professional or institution (MORENITA Mullen, BANK MANAGER, urgent care, hospital, or correction...) When possible be specific @ -No Did you speak to anyone other than the patient for history (EMS, parent, family, police, friend...)? What history was obtained from this source @ -No Did you review nursing and triage notes (agree or disagree)? Why? @ -I reviewed and agree with nursing and triage notes Were old charts reviewed (outside hosp., previous admission, EMS record, old EKG, old radiological studies, urgent care reports/EKG's, correction records)? Report findings @ -No old charts were reviewed Differential Diagnosis: Hidradenitis suppurativa, abscess, cellulitis EKG interpreted by me (3pts min.). @ -As above X-rays interpreted by me (1pt min.). @ -None done CT interpreted by me (1pt min.). @ -None done U/S interpreted by me (1pt. min.). @ -None done What testing was considered but not performed or refused? (CT, X-rays, U/S, labs)? Why? @ -None What meds were considered but not given or refused? Why? @ -None Did you discuss the management of the patient with other professionals (professionals i.e. MORENITA Mullen, BANK MANAGER, lab, RT, psych nurse, secondary social studies teacher, remote broadcast technician, teacher, aviation tactical readiness officer, showcase trimmer)? Give summary @ -No Was smoking cessation discussed for >3mins.? @ -No Was critical care preformed (if so, how long)? @ -No Were there social determinants of health that impacted care today? How? (Homelessness, low income, unemployed, alcoholism, drug addiction, transportation, low edu. Level, literacy, decrease access to med. care, custodial, rehab)? @ -No Was there de-escalation of care discussed even if they declined (Discuss DNR or withdrawal of care, Hospice)? DNR status @ -No What co-morbidities impacted this encounter? (DM, HTN, Smoking, COPD, CAD, Cancer, CVA, ARF, Chemo, Hep., AIDS, mental health diagnosis, sleep apnea, morbid obesity)? @ -Diabetic, tobacco use Was patient admitted / discharged? Hospital course, mention meds given and route, prescriptions, significant lab abnormalities, going to OR and other pertinent info. @48-year-old female with pain and swelling in the right axilla. No fluctuant abscess. I did attempt needle aspiration without purulent drainage. Patient will continue antibiotics and warm compresses and follow closely with her primary care provider. Undiagnosed new problem with uncertain prognosis? @ -No Drug Therapy requiring intensive monitoring for toxicity (Heparin, Nitro, Insulin, Cardizem)? @ -No Were any procedures done? @ -[Yes needle aspiration Diagnosis/symptom? @Abscess right axilla Acute, or Chronic, or Acute on Chronic? @ -Acute Uncomplicated (without systemic symptoms) or Complicated (systemic symptoms)? @ -Default Side effects of treatment? @ -No Exacerbation, Progression, or Severe Exacerbation? @ -No Poses a threat to life or bodily function? How? (Chest pain, [place], [place], pneumonia, PE, COPD, DKA, ARF, appy, cholecystitis, CVA, Diverticulitis, Homicidal, Suicidal, threat to staff... and all critical care pts) @ -Low risk Disposition Clinical Impression: Abscess of axilla, right Disposition: HOME SELF-CARE Condition: Fair Instructions (If sedation given, give patient instructions): Abscess (ED) Prescriptions: Sulfamethox-Tmp 800-160Mg [Bactrim DS 800-160 mg] 1 tab PO Q12HR #20 tab Is patient prescribed a controlled substance at d/c from ED?: No Referrals: Armaan Ponce MD [Primary Care Provider] - 1-2 days Time of Disposition: 09:11
== END 2024-07-28 09:27 | disposition home or self-care (01) ==
LOC: EC 08:32
CPT/HCPCS: 10060; 99282